=== PATIENT | female | born 1985 | race Caucasian/White ===

== ENCOUNTER 2016-05-27 13:58 | Emergency (ER) | payer MEDICAID ==
--- NOTE | 2016-05-27 15:10 | ER Document Report ---
ED Medical Screen (RME) - General Stated Complaint: STOMACH PAIN Mode of Arrival: Ambulatory Information source: Patient Notes: 30-year-old well-appearing female presents to the emergency department complaining of generalized abdominal pain, ear pain, and sinus congestion. Reports associated loose stools. Denies fever. I have greeted and performed a rapid initial assessment of this patient. A comprehensive ED assessment and evaluation of the patient, analysis of test results and completion of the medical decision making process will be conducted by additional ED providers. TRAVEL OUTSIDE OF THE [place] IN LAST 30 DAYS: No - Related Data Allergies/Adverse Reactions: tramadol [Tramadol] Allergy (Severe, Verified 05/27/16 14:59) ASTHMA SX,HIVES,VOMITING amoxicillin [Amoxicillin] Allergy (Verified 05/27/16 14:59) clindamycin HCl [From Cleocin] Allergy (Verified 05/27/16 14:59) clindamycin palmitate HCl [From Cleocin] Allergy (Verified 05/27/16 14:59) clindamycin phosphate [From Cleocin] Allergy (Verified 05/27/16 14:59) ketorolac tromethamine [From Toradol] Allergy (Verified 05/27/16 14:59) Sulfa (Sulfonamide Antibiotics) Allergy (Verified 05/27/16 14:59) sulfamethoxazole [From Bactrim] Allergy (Verified 05/27/16 14:59) trimethoprim [From Bactrim] Allergy (Verified 05/27/16 14:59) latex [Latex] Adverse Reaction (Verified 05/27/16 14:59) Past Medical History - Social History Frequency of alcohol use: None Drug Abuse: None - Past Medical History Cardiac Medical History: Reports: Hx Hypertension - WITH PREG Denies: Hx Heart Attack Pulmonary Medical History: Reports: Hx Asthma - NO CURRENT MEDS/LAST EPISODE WAS 03/19 Neurological Medical History: Denies: Hx Cerebrovascular Accident, Hx Seizures Renal/ Medical History: Denies: Hx Peritoneal Dialysis GI Medical History: Reports: Hx Gastroesophageal Reflux Disease. Denies: Hx Hepatitis, Hx Hiatal Hernia, Hx Ulcer Musculoskeltal Medical History: Reports Hx Arthritis, Reports Hx Musculoskeletal Deformity, Reports Hx Musculoskeletal Trauma Psychiatric Medical History: Reports: Hx Depression Traumatic Medical History: Reports: Hx Fractures Infectious Medical History: Denies: Hx Hepatitis Past Surgical History: Reports: Hx Adenoidectomy, Hx Section - x3, Hx Hysterectomy, Hx Myringotomy - Permanent, Hx Nose Surgery - Septoplasty, Hx Oral Surgery - cleft lip and palate, Hx Orthopedic Surgery - left knee, Microdiscectomy, Lumbar laminectomy, DJD, Hx Tonsillectomy, Hx Tubal Ligation. Denies: Hx Mastectomy, Hx Open Heart Surgery, Hx Pacemaker - Immunizations Immunizations up to date: Yes Hx Diphtheria, Pertussis, Tetanus Vaccination: Yes - 2009 Physical Exam - Vital signs Vitals: Temp Pulse Resp BP Pulse Ox 98.1 F 82 18 130/71 H 100 05/27/16 14:55 05/27/16 14:55 05/27/16 14:55 05/27/16 14:55 05/27/16 14:55 - General General appearance: Appears well, Alert In distress: None Course - Vital Signs Vital signs: Temp Pulse Resp BP Pulse Ox 98.1 F 82 18 130/71 H 100 05/27/16 14:55 05/27/16 14:55 05/27/16 14:55 05/27/16 14:55 05/27/16 14:55
[2016-05-27 15:47] LABS: ABSOLUTE EOSINOPHILS # (AUTO) 0.2 10^3/uL (0.0-0.6); ABSOLUTE LYMPHOCYTES (AUTO) 1.4 10^3/uL (0.5-4.7); ABSOLUTE MONOCYTES (AUTO) 0.5 10^3/uL (0.1-1.4); ABSOLUTE NEUT (AUTO) 8.7 10^3/uL (1.7-8.2); BASOPHILS % (AUTO) 0.2 % (0-2); EOSINOPHILS % (AUTO) 1.5 % (0-6); HEMATOCRIT 42.1 % (36.0-47.0); HGB HCT DIFFERENCE -0.1; LYMPHOCYTES % (AUTO) 12.7 % (13-45); MEAN CORPUSCULAR HEMOGLOBIN 29.6 pg (27.0-33.4); MEAN CORPUSCULAR HGB CONC 33.3 g/dL (32.0-36.0); MEAN CORPUSCULAR VOLUME 89 fl (80-97); MONOCYTES % (AUTO) 4.5 % (3-13); RED BLOOD COUNT 4.74 10^6/uL (3.72-5.28); RED CELL DISTRIBUTION WIDTH 12.7 % (11.5-14.0); SEGMENTED NEUTROPHILS % (AUTO) 81.1 % (42-78); WHITE BLOOD COUNT 10.7 10^3/uL (4.0-10.5)
[2016-05-27 15:53] LABS: APPEARANCE,URINE SLIGHTLY-CLOUDY; BILIRUBIN,URINE NEGATIVE (NEGATIVE); GLUCOSE, URINE NEGATIVE (NEGATIVE); KETONES,URINE NEGATIVE (NEGATIVE); LEUKOCYTE ESTERASE,URINE NEGATIVE (NEGATIVE); NITRITE,URINE NEGATIVE (NEGATIVE); PROTEIN,URINE NEGATIVE (NEGATIVE); URINE SPECIFIC GRAVITY 1.012; UROBILINOGEN,URINE NEGATIVE mg/dL (<2.0)
[2016-05-27 16:07] LABS: ALANINE AMINOTRANSFERASE 26 U/L (9-52); ALBUMIN 4.1 g/dL (3.5-5.0); ALKALINE PHOSPHATASE 59 U/L (38-126); ANION GAP 13 (5-19); ASPARTATE AMINO TRANSFERASE 29 U/L (14-36); BILIRUBIN,TOTAL 0.5 mg/dL (0.2-1.3); BLOOD UREA NITROGEN 8 mg/dL (7-20); CALCIUM 9.9 mg/dL (8.4-10.2); CARBON DIOXIDE 29 mmol/L (22-30); CHLORIDE 102 mmol/L (98-107); CREATININE RESULT 0.62 mg/dL (0.52-1.25); GLUCOSE 83 mg/dL (75-110); LIPASE 69.9 U/L (23-300); POTASSIUM 3.8 mmol/L (3.6-5.0); SODIUM 143.7 mmol/L (137-145); TOTAL PROTEIN 7.3 g/dL (6.3-8.2)
[2016-05-27] MEDS ORDERED: HYDROCODONE/ACETAMINOPHEN 5-325 MG 6 TAB/DSPK PO PRN ×2 (17:19→17:42)
[2016-05-27] MEDS ORDERED: PROMETHAZINE HCL 25 MG TABLET PO ONE (17:19)
--- NOTE | 2016-05-27 17:26 | ER Document Report ---
ED GI/ - General Chief Complaint: Abdominal Pain Stated Complaint: STOMACH PAIN Time seen by provider: 17:20 Mode of Arrival: Ambulatory Information source: Patient Notes: 30-year-old female presents to ED for abdominal pain and diarrhea for over a week. Patient states she was recently diagnosed with ulcer and change from ranitidine and Prilosec to Protonix and has a follow-up appointment with Dr. Osman. TRAVEL OUTSIDE OF THE [place] IN LAST 30 DAYS: No - HPI Patient complains to provider of: Abdominal pain, Diarrhea - Multiple stools yesterday only 3 stools today liquid, Other - Right ear pain Onset: Last week Timing/Duration: Gradual, Intermittent Quality of pain: Sharp - To up her abdominal pain and right ear Severity at maximum: Moderate Severity in ED: Moderate Pain Level: 3 Location: Other - Upper abdominal pain and right ear pain Vaginal bleeding (Compared to normal period): None Menstrual period history: Post-menopausal LMP: hysterectomy Associated symptoms: Diarrhea, Nausea, Other - Right ear pain Exacerbated by: Movement, Other - Right ear increases in pain with movement of head Relieved by: Denies - Related Data Allergies/Adverse Reactions: tramadol [Tramadol] Allergy (Severe, Verified 05/27/16 14:59) ASTHMA SX,HIVES,VOMITING amoxicillin [Amoxicillin] Allergy (Verified 05/27/16 14:59) clindamycin HCl [From Cleocin] Allergy (Verified 05/27/16 14:59) clindamycin palmitate HCl [From Cleocin] Allergy (Verified 05/27/16 14:59) clindamycin phosphate [From Cleocin] Allergy (Verified 05/27/16 14:59) ketorolac tromethamine [From Toradol] Allergy (Verified 05/27/16 14:59) Sulfa (Sulfonamide Antibiotics) Allergy (Verified 05/27/16 14:59) sulfamethoxazole [From Bactrim] Allergy (Verified 05/27/16 14:59) trimethoprim [From Bactrim] Allergy (Verified 05/27/16 14:59) latex [Latex] Adverse Reaction (Verified 05/27/16 14:59) Past Medical History - General Information source: Patient - Social History Smoking Status: Unknown if Ever Smoked Frequency of alcohol use: None Drug Abuse: None Family History: CVA, Malignancy Patient has suicidal ideation: No Patient has homicidal ideation: No - Medical History Medical History: Other - Iron deficiency anemia - Past Medical History Cardiac Medical History: Reports: Hx Hypertension - WITH PREG Pulmonary Medical History: Reports: Hx Asthma - NO CURRENT MEDS/LAST EPISODE WAS 03/19 EENT Medical History: Reports: None Neurological Medical History: Reports: None Endocrine Medical History: Reports: Hx Hypothyroidism Renal/ Medical History: Reports: None Malignancy Medical History: Reports: None GI Medical History: Reports: Hx Gastroesophageal Reflux Disease, Hx Ulcer, Hx Colonoscopy, Hx Endoscopy Musculoskeltal Medical History: Reports Hx Arthritis, Reports Hx Musculoskeletal Deformity - Degenerative disc disease, Reports Hx Musculoskeletal Trauma - Left arm fracture Skin Medical History: Reports None Psychiatric Medical History: Reports: Hx Depression Traumatic Medical History: Reports: Hx Fractures - Left arm Infectious Medical History: Reports: None. Denies: Hx Hepatitis Past Surgical History: Reports: Hx Adenoidectomy, Hx Section - x3, Hx Hysterectomy, Hx Myringotomy - Permanent, Hx Nose Surgery - Septoplasty, Hx Oral Surgery - cleft lip and palate, Hx Orthopedic Surgery - left knee, Microdiscectomy, Lumbar laminectomy, DJD, Hx Tonsillectomy, Hx Tubal Ligation - Immunizations Immunizations up to date: Yes Hx Diphtheria, Pertussis, Tetanus Vaccination: Yes - 2009 Review of Systems - Review of Systems Constitutional: No symptoms reported EENT: No symptoms reported Cardiovascular: No symptoms reported Respiratory: No symptoms reported Gastrointestinal: Abdominal pain Genitourinary: No symptoms reported Female Genitourinary: No symptoms reported Musculoskeletal: No symptoms reported Skin: No symptoms reported Hematologic/Lymphatic: No symptoms reported Neurological/Psychological: No symptoms reported -: Yes All other systems reviewed and negative Physical Exam - Vital signs Vitals: Temp Pulse Resp BP Pulse Ox 98.1 F 82 18 130/71 H 100 05/27/16 14:55 05/27/16 14:55 05/27/16 14:55 05/27/16 14:55 05/27/16 14:55 Interpretation: Normal - General General appearance: Appears well, Alert - HEENT Head: Normocephalic, Atraumatic Eyes: Normal Pupils: PERRL - Respiratory Respiratory status: No respiratory distress Chest status: Nontender Breath sounds: Normal Chest palpation: Normal - Cardiovascular Rhythm: Regular Heart sounds: Normal auscultation Murmur: No - Abdominal Inspection: Normal Distension: No distension Bowel sounds: Normal Tenderness: Tender - Upper abdominal tenderness recent diagnosis of ulcers Organomegaly: No organomegaly - Back Back: Normal, Nontender - Extremities General upper extremity: Normal inspection, Nontender, Normal color, Normal ROM , Normal temperature General lower extremity: Normal inspection, Nontender, Normal color, Normal ROM , Normal temperature, Normal weight bearing. No: Malathi's sign - Neurological Neuro grossly intact: Yes Cognition: Normal Orientation: AAOx4 Wins[place] Coma Scale Eye Opening: Spontaneous [place] Coma Scale Verbal: Oriented Wins[place] Coma Scale Motor: Obeys Commands Winslow Coma Scale Total: 15 Speech: Normal Motor strength normal: LUE, RUE, LLE, RLE Sensory: Normal - Psychological Associated symptoms: Normal affect, Normal mood - Skin Skin Temperature: Warm Skin Moisture: Dry Skin Color: Normal Course - Re-evaluation Re-evalutation: 05/27/16 17:[address] Auguste for assessment of abdominal pain he recommended adding Carafate to my program. Patient will be sent home with a new hydrocodone dispense Nathen prescription for Phenergan and prescription for Carafate. She will be given a Carafate and Phenergan in the emergency room. - Vital Signs Vital signs: Temp Pulse Resp BP Pulse Ox 98.1 F 88 16 128/74 H 99 05/27/16 18:00 05/27/16 18:00 05/27/16 18:00 05/27/16 18:00 05/27/16 18:00 - Laboratory Result Diagrams: 05/27/16 15:24 05/27/16 15:24 Laboratory results interpreted by me: 05/27/16 05/27/16 15:24 15:24 WBC 10.7 H Seg Neutrophils % 81.1 H Lymphocytes % 12.7 L Absolute Neutrophils 8.7 H Urine Blood SMALL H Discharge - Discharge Clinical Impression: Upper abdominal pain, Right ear pain Diarrhea Qualifiers: Diarrhea type: unspecified type Qualified Code(s): R19.7 - Diarrhea, unspecified Condition: Good Disposition: HOME, SELF-CARE Instructions: Evaluation of Upper Abdominal Pain ([facility]) Additional Instructions: ABDOMINAL PAIN: There are many causes of abdominal pain. Pain can mean a serious problem requiring surgery (such as appendicitis). It can also be an innocent problem that goes away on its own (such as a viral infection). Often, time must pass to determine the cause of pain. The physician does not feel that hospitalization is necessary, at present. Things may change within the next 24 hours. Call the doctor or come back for re- examination if any problems occur, such as: (1) Pain that becomes more severe, steady, or becomes concentrated in one specific area. Also, pain that is more severe with movement or coughing. (2) Vomiting that persists or becomes more frequent. (3) Blood in the vomitus, urine, or bowel movements. Blood in the stool may have a tarry or black appearance. (4) Shaking chills or fever greater than 100 degrees F. (5) The abdomen becomes more distended or swollen. (6) Bowel movements cease. (7) Failure to improve as expected. UPPER RESPIRATORY ILLNESS: You have a viral infection of the respiratory passages -- a "cold." This common infection causes nasal congestion, drainage, and often sore throat and cough. It is highly contagious. The disease usually lasts about 10 to 14 days. There is no "cure" for the viral infection -- it must run its course. If there is a complication, such as bacterial infection in the nose, sinuses, middle ear, or bronchial tubes, antibiotics may be required. The antibiotics won't affect the virus. Drink plenty of fluids. A humidifier may help. An expectorant medication or decongestant may make you more comfortable. Use acetaminophen or ibuprofen for fever or aches. See the doctor if fever persists over two days, if there is any significant worsening of your symptoms, or if you simply fail to improve as expected. USE OF ACETAMINOPHEN (Tylenol): Acetaminophen may be taken for pain relief or fever control. It's much safer than aspirin, offering a wider range of "safe" dosages. It is safe during . Some brand names are Tylenol, Panadol, Datril, Anacin 3, Tempra, and Liquiprin. Acetaminophen can be repeated every four hours. The following are maximum recommended dosages: >89 pounds or adults 650 mg to 900 mg Acetaminophen can be repeated every four hours. Maximum dose not to exceed 4000 mg a day. ANTINAUSEA MEDICATION: You have been given a medication to suppress nausea and vomiting. This type of medication can be given as a shot, pill, or suppository. It will usually last for many hours. Pills and shots usually last six to eight hours, suppositories last about 12 hours. For the typical illness, only one or two doses of the medication may be necessary. Mild lightheadedness may occur. This type of medicine can cause drowsiness. Do not drive or operate dangerous machinery while under its influence. Do not mix with alcohol. See your doctor at once if you have muscle spasms or tightness, or uncontrollable motions (particularly of the neck, mouth, or jaw). Persistent vomiting or severe lightheadedness should also be evaluated by the physician. ORAL NARCOTIC MEDICATION: You have been given a prescription for pain control. This medication is a narcotic. It's best taken with food, as nausea can result if taken on an empty stomach. Don't operate machinery or drive within six hours of taking this medication. Do not combine this medicine with alcohol, or with any medication which can cause sedation (such as cold tablets or sleeping pills) unless you get permission from the physician. Narcotics tend to cause constipation. If possible, drink plenty of fluids and eat a diet high in fiber and fruits. Please be aware that prescription narcotics also have the potential for abuse. People become addicted to these medications because of the general sense of wellbeing that they induce. This feeling along with a significant reduction in tension, anxiety, and aggression provides a stimulating seductive quality to these drugs. Once your pain is under control, we encourage you to discard your unused narcotics. FOLLOW-UP CARE: If you have been referred to a physician for follow-up care, call the physician s office for an appointment as you were instructed or within the next two days. If you experience worsening or a significant change in your symptoms, notify the physician immediately or return to the Emergency Department at any time for re-evaluation. Prescriptions: Promethazine HCl [Phenergan 25 mg Tablet] 25 mg PO Q6HP PRN #10 tablet PRN Reason: Sucralfate [Carafate 1 gm Tablet] 1 gm PO ACHS #120 tablet Referrals: JEREMY OSMAN MD [ACTIVE STAFF] - Follow up as needed
[2016-05-27] MEDS ORDERED: SUCRALFATE 1 GM TABLET PO ONE (17:43)
--- NOTE | 2016-05-27 17:57 | ER Document Report ---
Doctor's Note Notes: 05/27/16 17:53 I personally interviewed and briefly examined this patient. She has a known history of peptic ulcer disease, and her subjective description is consistent with pain of an upper GI source. Upon examination she has a soft abdomen with good bowel sounds and minimal epigastric tenderness. She states that her pain seems to be improved when she takes Pepto-Bismol. I have recommended that she try taking Carafate to see if it would provide additional symptomatic relief. 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
[2016-05-27 19:09] VITALS: BP 128/74
== END 2016-05-27 18:00 | disposition home or self-care (01) ==
LOC: ER 13:58
DX: K27.9 Peptic ulcer, site unspecified, unspecified as acute or chronic, without hemorrhage or perforation (principal); R19.7 Diarrhea, unspecified; R10.10 Upper abdominal pain, unspecified; H92.01 Otalgia, right ear; R11.0 Nausea; J45.909 Unspecified asthma, uncomplicated; Z88.5 Allergy status to narcotic agent; Z88.0 Allergy status to penicillin; Z88.1 Allergy status to other antibiotic agents; Z88.2 Allergy status to sulfonamides; Z88.8 Allergy status to other drugs, medicaments and biological substances; Z96.22 Myringotomy tube(s) status; Z90.710 Acquired absence of both cervix and uterus
CPT/HCPCS: 99284; 36415; 83690; 85025; 81025; 80053; 81001; J3490 ×2

== ENCOUNTER 2016-06-23 14:25 | Emergency (ER) | payer MEDICAID ==
[2016-06-23] MEDS ORDERED: ONDANSETRON 4 MG TAB.RAPDIS PO ONE (14:33)
[2016-06-23] MEDS ORDERED: OXYCODONE-ACETAMINOPHEN 5-325 MG TABLET PO ONE (14:33)
--- NOTE | 2016-06-23 14:36 | ER Document Report ---
ED Medical Screen (RME) - General Stated Complaint: RIGHT WRIST PAIN Mode of Arrival: Wheelchair Information source: Patient Notes: Patient ELOY, felt pops in her right wrist. EMS reports that there is some visible deformity I have greeted and performed a rapid initial assessment of this patient. A comprehensive ED assessment and evaluation of the patient, analysis of test results and completion of the medical decision making process will be conducted by additional ED providers. TRAVEL OUTSIDE OF THE [place] IN LAST 30 DAYS: No - Related Data Allergies/Adverse Reactions: tramadol [Tramadol] Allergy (Severe, Verified 05/27/16 14:59) ASTHMA SX,HIVES,VOMITING amoxicillin [Amoxicillin] Allergy (Verified 05/27/16 14:59) clindamycin HCl [From Cleocin] Allergy (Verified 05/27/16 14:59) clindamycin palmitate HCl [From Cleocin] Allergy (Verified 05/27/16 14:59) clindamycin phosphate [From Cleocin] Allergy (Verified 05/27/16 14:59) ketorolac tromethamine [From Toradol] Allergy (Verified 05/27/16 14:59) Sulfa (Sulfonamide Antibiotics) Allergy (Verified 05/27/16 14:59) sulfamethoxazole [From Bactrim] Allergy (Verified 05/27/16 14:59) trimethoprim [From Bactrim] Allergy (Verified 05/27/16 14:59) latex [Latex] Adverse Reaction (Verified 05/27/16 14:59) Past Medical History - Past Medical History Cardiac Medical History: Reports: Hx Hypertension - WITH PREG Denies: Hx Heart Attack Pulmonary Medical History: Reports: Hx Asthma - NO CURRENT MEDS/LAST EPISODE WAS 03/19 Neurological Medical History: Denies: Hx Cerebrovascular Accident, Hx Seizures Endocrine Medical History: Reports: Hx Hypothyroidism Renal/ Medical History: Denies: Hx Peritoneal Dialysis GI Medical History: Reports: Hx Gastroesophageal Reflux Disease, Hx Ulcer, Hx Colonoscopy, Hx Endoscopy. 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 Denies: Hx Mastectomy, Hx Open Heart Surgery, Hx Pacemaker - Immunizations Immunizations up to date: Yes Hx Diphtheria, Pertussis, Tetanus Vaccination: Yes - 2009 Physical Exam - Extremities General upper extremity: Tender - Right wrist tenderness with deformity
[2016-06-23] MEDS ORDERED: HYDROMORPHONE HCL INJ/PF 2 MG/ML AMPULE IM ONE (15:28)
--- NOTE | 2016-06-23 15:43 | ER Document Report ---
[id number] PAIN Mode of Arrival: Wheelchair Information source: Patient Notes: 30-year-old female presents after mechanical fall with right wrist pain. Deformity noted. TRAVEL OUTSIDE OF THE [place] IN LAST 30 DAYS: No - HPI Onset: Just prior to arrival Onset/Duration: Sudden Quality of pain: Sharp Severity: Moderate Pain Level: 3 Associated symptoms: Body/muscle aches Exacerbated by: Movement Relieved by: Denies Similar symptoms previously: No Recently seen / treated by doctor: No - Related Data Allergies/Adverse Reactions: tramadol [Tramadol] Allergy (Severe, Verified 05/27/16 14:59) ASTHMA SX,HIVES,VOMITING amoxicillin [Amoxicillin] Allergy (Verified 05/27/16 14:59) clindamycin HCl [From Cleocin] Allergy (Verified 05/27/16 14:59) clindamycin palmitate HCl [From Cleocin] Allergy (Verified 05/27/16 14:59) clindamycin phosphate [From Cleocin] Allergy (Verified 05/27/16 14:59) ketorolac tromethamine [From Toradol] Allergy (Verified 05/27/16 14:59) Sulfa (Sulfonamide Antibiotics) Allergy (Verified 05/27/16 14:59) sulfamethoxazole [From Bactrim] Allergy (Verified 05/27/16 14:59) trimethoprim [From Bactrim] Allergy (Verified 05/27/16 14:59) latex [Latex] Adverse Reaction (Verified 05/27/16 14:59) Past Medical History - General Information source: Patient - Social History Smoking Status: Current Every Day Smoker Cigarette use (# per day): No Chew tobacco use (# tins/day): No Smoking Education Provided: No Frequency of alcohol use: None Drug Abuse: None Family History: CVA, Malignancy Patient has suicidal ideation: No Patient has homicidal ideation: No - Past Medical History Cardiac Medical History: Reports: Hx Hypertension - WITH PREG Denies: Hx Heart Attack Pulmonary Medical History: Reports: Hx Asthma - NO CURRENT MEDS/LAST EPISODE WAS 03/19 Neurological Medical History: Denies: Hx Cerebrovascular Accident, Hx Seizures Endocrine Medical History: Reports: Hx Hypothyroidism Renal/ Medical History: Denies: Hx Peritoneal Dialysis GI Medical History: Reports: Hx Gastroesophageal Reflux Disease, Hx Ulcer, Hx Colonoscopy, Hx Endoscopy. 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 Denies: Hx Mastectomy, Hx Open Heart Surgery, Hx Pacemaker - Immunizations Immunizations up to date: Yes Hx Diphtheria, Pertussis, Tetanus Vaccination: Yes - 2009 Review of Systems - Review of Systems Notes: REVIEW OF SYSTEMS: CONSTITUTIONAL : Denies fever, chills, or sweats. Denies recent illness. EENT: Denies eye, ear, throat, or mouth pain or symptoms. Denies nasal or sinus congestion or discharge. Denies throat, tongue, or mouth swelling or difficulty swallowing. CARDIOVASCULAR: Denies chest pain. Denies palpitations or racing or irregular heart beat. Denies ankle edema. RESPIRATORY: Denies cough, cold, or chest congestion. Denies shortness of breath, difficulty breathing, or wheezing. GASTROINTESTINAL: Denies abdominal pain or distention. Denies nausea, vomiting , or diarrhea. Denies blood in vomitus, stools, or per rectum. Denies black, tarry stools. Denies constipation. GENITOURINARY: Denies difficulty urinating, painful urination, burning, frequency, blood in urine, or discharge. FEMALE GENITOURINARY: Denies vaginal bleeding, heavy or abnormal periods, irregular periods. Denies vaginal discharge or odor. MUSCULOSKELETAL: Admits to right wrist pain SKIN: Denies rash, lesions or sores. HEMATOLOGIC : Denies easy bruising or bleeding. LYMPHATIC: Denies swollen, enlarged glands. NEUROLOGICAL: Denies confusion or altered mental status. Denies passing out or loss of consciousness. Denies dizziness or lightheadedness. Denies headache. Denies weakness or paralysis or loss of use of either side. Denies problems with gait or speech. Denies sensory loss, numbness, or tingling. Denies seizures. PSYCHIATRIC: Denies anxiety or stress. Denies depression, suicidal ideation, or homicidal ideation. ALL OTHER SYSTEMS REVIEWED AND NEGATIVE. Dictation was performed using [employer] voice recognition software PHYSICAL EXAMINATION: GENERAL: Well-appearing, well-nourished and in no acute distress. HEAD: Atraumatic, normocephalic. EYES: Pupils equal round extraocular movements intact, conjunctiva are normal. ENT: Nares patent NECK: Normal range of motion LUNGS: No respiratory distress Musculoskeletal: Deformity of the right distal radial head, a splint in place pulses intact patient able to move digits NEUROLOGICAL: Normal speech, normal gait. PSYCH: Normal mood, normal affect. SKIN: Warm, Dry, normal turgor, no rashes or lesions noted. Physical Exam - Vital signs Vitals: Temp Pulse Resp BP Pulse Ox 97.8 F 116 H 19 152/101 H 100 06/23/16 14:32 06/23/16 14:32 06/23/16 14:32 06/23/16 14:32 06/23/16 14:32 Course - Re-evaluation Re-evalutation: 06/23/16 16:04 X-ray consistent with fracture, patient placed in splint given pain control and follow-up with orthopedics. Pulses are intact After performing a Medical Screening Examination, I estimate there is LOW risk for INTRACRANIAL HEMORRHAGE, UNSTABLE SPINE FRACTURE, CENTRAL CORD SYNDROME, CAUDA EQUINA, THORACIC AORTIC DISSECTION, PNEUMOTHORAX, PERFORATED BOWEL, RUPTURED ABDOMINAL AORTIC ANEURYSM, ACUTE TENDON RUPTURE, COMPARTMENT SYNDROME, or OPEN FRACTURE, thus I consider the discharge disposition reasonable. Also, there is no evidence or peritonitis, sepsis, or toxicity. The patient and I have discussed the diagnosis and risks, and we agree with discharging home to follow-up with their primary doctor with the understanding that symptoms and presentations can change. We also discussed returning to the Emergency Department immediately if new or worsening symptoms occur. We have discussed the symptoms which are most concerning (e.g., bloody stool, fever, changing or worsening pain, vomiting) that necessitate immediate return. 06/24/16 00:22 - Vital Signs Vital signs: Temp Pulse Resp BP Pulse Ox 97.7 F 96 20 125/75 95 06/23/16 16:22 06/23/16 16:22 06/23/16 16:22 06/23/16 16:22 06/23/16 16:22 - Diagnostic Test Radiology reviewed: Image reviewed, Reports reviewed - Imaging report given to patient Procedures - Immobilization Right Wrist Time completed: 15:40 Pre-Proc Neuro Vasc Exam: Normal Immobilizer type: Sugar tong Performed by: PCT Post-Proc Neuro Vasc Exam: Normal Alignment checked and good: Yes Discharge - Discharge Clinical Impression: Distal radial fracture Qualifiers: Encounter type: initial encounter Fracture type: closed Fracture morphology: other fracture Laterality: right Qualified Code(s): S52.591A - Other fractures of lower end of right radius, initial encounter for closed fracture Wrist pain, acute Qualifiers: Laterality: right Qualified Code(s): M25.531 - Pain in right wrist Fall Qualifiers: Encounter type: initial encounter Qualified Code(s): W19.XXXA - Unspecified fall, initial encounter Condition: Stable Disposition: HOME, SELF-CARE Instructions: Radial Head Fracture ([facility]) Prescriptions: Oxycodone HCl/Acetaminophen [Percocet 5-325 mg Tablet] 1 - 2 tab PO Q4H PRN #25 tablet PRN Reason: Referrals: RADHA BOUDREAUX MD [ACTIVE STAFF] - Follow up in 3-5 days
[2016-06-23 16:22] VITALS: BP 125/75
== END 2016-06-23 16:23 | disposition home or self-care (01) ==
LOC: ER 14:25
PROC: 2W3CX1Z Immobilization of Right Lower Arm using Splint (ICD-10-PCS; principal; 2016-06-23)
DX: S52.591A Other fractures of lower end of right radius, initial encounter for closed fracture (principal); M25.531 Pain in right wrist; F17.200 Nicotine dependence, unspecified, uncomplicated; W19.XXXA Unspecified fall, initial encounter; I10 Essential (primary) hypertension; J45.909 Unspecified asthma, uncomplicated; E03.9 Hypothyroidism, unspecified; K21.9 Gastro-esophageal reflux disease without esophagitis; Z88.0 Allergy status to penicillin; Z88.3 Allergy status to other anti-infective agents; Z88.2 Allergy status to sulfonamides; Z91.040 Latex allergy status; Z90.710 Acquired absence of both cervix and uterus
CPT/HCPCS: 99283; 96372; 73110; 29125; S0119; J1170

== ENCOUNTER 2016-06-28 15:41 | Day surgery (SDC) | payer MEDICAID ==
[2016-06-27 10:39] LABS: HEMATOCRIT 43.5 % (36.0-47.0); HEMOGLOBIN 14.7 g/dL (12.0-15.5); HGB HCT DIFFERENCE 0.6; MEAN CORPUSCULAR HEMOGLOBIN 29.5 pg (27.0-33.4); MEAN CORPUSCULAR HGB CONC 33.9 g/dL (32.0-36.0); MEAN CORPUSCULAR VOLUME 87 fl (80-97); RED CELL DISTRIBUTION WIDTH 12.5 % (11.5-14.0); WHITE BLOOD COUNT 10.4 10^3/uL (4.0-10.5)
[2016-06-27 10:41] LABS: APPEARANCE,URINE SLIGHTLY-CLOUDY; BILIRUBIN,URINE NEGATIVE (NEGATIVE); GLUCOSE, URINE NEGATIVE (NEGATIVE); KETONES,URINE NEGATIVE (NEGATIVE); LEUKOCYTE ESTERASE,URINE NEGATIVE (NEGATIVE); NITRITE,URINE NEGATIVE (NEGATIVE); PROTEIN,URINE 30 mg/dL (NEGATIVE); URINE SPECIFIC GRAVITY 1.033; UROBILINOGEN,URINE NEGATIVE mg/dL (<2.0)
[2016-06-27 10:43] LABS: ANION GAP 11 (5-19); BLOOD UREA NITROGEN 16 mg/dL (7-20); CALCIUM 10.1 mg/dL (8.4-10.2); CARBON DIOXIDE 28 mmol/L (22-30); CHLORIDE 101 mmol/L (98-107); CREATININE RESULT 0.56 mg/dL (0.52-1.25); GLUCOSE 91 mg/dL (75-110); POTASSIUM 4.4 mmol/L (3.6-5.0); SODIUM 140.1 mmol/L (137-145)
[~2016-06-28 15:41] MED LIST: CEFAZOLIN SODIUM 1 GM in DEXTROSE 5%-WATER 50 ML IV PRN; LACTATED RINGERS 1000 ML IV PRN; LIDOCAINE 0.5% INJ-PF (5 MG/ML) 50 ML SDV SUBCUT PRN
[2016-06-28] MEDS ORDERED: DIAZEPAM 5 MG TABLET ONE (16:27)
[2016-06-28] MEDS ORDERED: ACETAMINOPHEN 0 ML IV ONE (16:58)
[2016-06-28] MEDS ORDERED: DIAZEPAM 5 MG TABLET PO ONE (17:15)
[2016-06-28] MEDS ORDERED: FAMOTIDINE 20 MG TABLET PO ONE (17:15)
[2016-06-28] MEDS ORDERED: HYDROCODONE/ACETAMINOPHEN 5-325 MG TABLET ONE (17:51)
[2016-06-28] MEDS ORDERED: FENTANYL CITRATE INJ/PF 100 MCG/2 ML AMPUL ONE (18:22)
[2016-06-28] MEDS ORDERED: PROPOFOL INJ 200 MG/20 ML VIAL IV ONE (18:22)
[2016-06-28] MEDS ORDERED: MIDAZOLAM 2 MG/2 ML INJ ONE (18:22)
[2016-06-28] MEDS ORDERED: MEPERIDINE HCL/PF INJ 25 MG/1 ML DISP.SYRIN IV PRN (18:58)
[2016-06-28] MEDS ORDERED: DIPHENHYDRAMINE HCL 50 MG/ML VIAL IV PRN (18:58)
[2016-06-28] MEDS ORDERED: PROMETHAZINE HCL INJ 25 MG/1 ML VIAL IV PRN ×2 (18:58)
[2016-06-28] MEDS ORDERED: FENTANYL CITRATE INJ/PF 100 MCG/2 ML AMPUL IV PRN ×3 (18:58)
--- NOTE | 2016-06-28 19:08 | PDOC DISCHARGE SUMMARY ---
Discharge Summary (SDC) - Discharge Final Diagnosis: Displaced right distal radius fracture status post closed reduction with pertains pinning and application of a short arm cast. Date of Surgery: 06/28/16 Discharge Date: 06/28/16 Condition: Good Treatment or Instructions: Keep the cast dry clean and intact Nonweightbearing right upper extremity Follow-up in 2 weeks. Prescriptions: Oxycodone HCl/Acetaminophen [Percocet 5-325 mg Tablet] 1 - 2 tab PO ASDIR PRN # 60 tablet PRN Reason: Referrals: OSORIO MICHAEL PA-C [Primary Care Provider] - Discharge Diet: As Tolerated Respiratory Treatments at Home: Deep Breathing/Coughing Discharge Activity: No Driving, No Lifting/Push/Pulling Home Care Assistance: None Needed Report the Following to Your Physician Immediately: Shortness of Breath, Vomiting, Increase in Pain, Fever over 101 Degrees, Unusual Bleeding, Redness, Swelling, Warmth, Drainage-Yellow, Drainage-Green, Drainage-Foul Smelling
--- NOTE | 2016-06-28 19:11 | Operative Report ---
Operative Report DATE OF SURGERY: 06/28/16 PREOPERATIVE DIAGNOSIS: Displaced right extra articular distal radius fracture POSTOPERATIVE DIAGNOSIS: Same OPERATION: Closed reduction and per cutaneous pinning of the right distal radius fracture with application of a short arm cast SURGEON: KIKI SHORT ANESTHESIA: GA TISSUE REMOVED OR ALTERED: None COMPLICATIONS: None ESTIMATED BLOOD LOSS: left and 5 mL INTRAOPERATIVE FINDINGS: As above PROCEDURE: Patient was given 1 g of Ancef in the preop holding area. At that point the patient was brought to the operating room and induced and intubated in supine position. Once the tube was secured the right upper extremity tourniquet was applied. Right upper show any was prepped and draped in a normal surgical fashion timeout was done identifying the right wrist as correct site. After prepping and draping in normal sterile surgical fashion we are using mini C-arm to x-ray AP and lateral views of the distal radius showing a displaced extra- articular distal radius fracture. I did a closed reduction with acceptable alignment AP and lateral and then proceeded to place 2 Emily wires in the radial styloid passing the fracture site into the small ulnar shaft. AP and lateral x-rays taken to show placement of the pin and retained reduction. Once I was satisfied with the pinning and then proceeded to bend the K wires outside the skin then cut the remaining length. I placed 2 Jergensen balls and secured over the tip of the 2 K wires. Xeroform and 4 x 4 dressing was applied around the K wires and then Sof-Rol was applied to the right upper extremity and a fiberglass short arm cast was applied successfully. Waited a few minutes to have it hardened. Applied surgical loupe to eliminate the adhesive component to a fiber glass. Patient was then successfully extubated and sent to PACU in stable condition. Tourniquet was never used or inflated.
[2016-06-28] MEDS: MEPERIDINE HCL/PF INJ 25 MG/1 ML DISP.SYRIN ONE ×2 (19:14→19:19)
[2016-06-28] MEDS: FENTANYL CITRATE INJ/PF 100 MCG/2 ML AMPUL ONE ×2 (19:15→19:20)
[2016-06-28 20:37] VITALS: BP 113/70
== END 2016-06-28 20:50 | disposition home or self-care (01) ==
LOC: OROUT 15:41 → 2N 20:00 → OROUT 20:50
PROVIDERS: ATTEND Orthopaedic Surgery
PROC: 0PSH34Z Reposition Right Radius with Internal Fixation Device, Percutaneous Approach (ICD-10-PCS; principal; 2016-06-28 16:45)
DX: S52.531D Colles' fracture of right radius, subsequent encounter for closed fracture with routine healing (principal); X58.XXXD Exposure to other specified factors, subsequent encounter; E03.9 Hypothyroidism, unspecified; D64.9 Anemia, unspecified; Z79.899 Other long term (current) drug therapy; Z88.0 Allergy status to penicillin; Z88.2 Allergy status to sulfonamides; Z88.5 Allergy status to narcotic agent
CPT/HCPCS: 36415; 85027; 80048; 81001; 73100; 25606; C1769; J2250; J0690; J3490 ×2; J3010; J2175; J2704; 01820; J0131

== ENCOUNTER 2016-07-06 19:44 | Emergency (ER) | payer MEDICAID ==
[2016-07-06 19:56] VITALS: BP 127/82
--- NOTE | 2016-07-06 20:12 | ER Document Report ---
ED Medical Screen (RME) - General Stated Complaint: POST SURGICAL COMPLICATION Notes: Patient states she had surgery on her right arm 2 weeks ago for a fracture with deformity. Bumped her thumb on recliner a couple of days ago and feels like pins or rods are coming through her skin is very painful. Patient states she is having decreased mobility in her thumb since incident. Fingertips feel cool to touch. I have greeted and performed a rapid initial assessment of this patient. A comprehensive ED assessment and evaluation of the patient, analysis of test results and completion of the medical decision making process will be conducted by additional ED providers. TRAVEL OUTSIDE OF THE [place] IN LAST 30 DAYS: No - Related Data Allergies/Adverse Reactions: tramadol [Tramadol] Allergy (Severe, Verified 05/27/16 14:59) ASTHMA SX,HIVES,VOMITING amoxicillin [Amoxicillin] Allergy (Verified 05/27/16 14:59) clindamycin HCl [From Cleocin] Allergy (Verified 05/27/16 14:59) clindamycin palmitate HCl [From Cleocin] Allergy (Verified 05/27/16 14:59) clindamycin phosphate [From Cleocin] Allergy (Verified 05/27/16 14:59) ketorolac tromethamine [From Toradol] Allergy (Verified 05/27/16 14:59) Latex, Natural Rubber Allergy (Verified 06/27/16 08:08) Hives Sulfa (Sulfonamide Antibiotics) Allergy (Verified 05/27/16 14:59) sulfamethoxazole [From Bactrim] Allergy (Verified 05/27/16 14:59) trimethoprim [From Bactrim] Allergy (Verified 05/27/16 14:59) latex [Latex] Adverse Reaction (Verified 05/27/16 14:59) Past Medical History - Past Medical History Cardiac Medical History: Reports: Hx Hypertension - WITH PREG Denies: Hx Coronary Artery Disease, Hx Heart Attack Pulmonary Medical History: Reports: Hx Asthma - NO CURRENT MEDS/LAST EPISODE WAS 03/19 Denies: Hx Bronchitis, Hx COPD, Hx Pneumonia Neurological Medical History: Denies: Hx Cerebrovascular Accident, Hx Seizures Endocrine Medical History: Reports: Hx Hypothyroidism Renal/ Medical History: Denies: Hx Peritoneal Dialysis GI Medical History: Reports: Hx Gastroesophageal Reflux Disease, Hx Ulcer, Hx Colonoscopy, Hx Endoscopy. 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 Denies: Hx Mastectomy, Hx Open Heart Surgery, Hx Pacemaker - Immunizations Immunizations up to date: Yes Hx Diphtheria, Pertussis, Tetanus Vaccination: Yes - 2009 Physical Exam - Vital signs Vitals: Temp Pulse Resp BP Pulse Ox 98.1 F 82 16 127/82 H 98 07/06/16 19:54 07/06/16 19:54 07/06/16 19:54 07/06/16 19:54 07/06/16 19:54 - Extremities Notes: right thumb tender to touch, other fingers feel cool to touch. N/V and sensation intact. Course - Vital Signs Vital signs: Temp Pulse Resp BP Pulse Ox 98.1 F 82 16 127/82 H 98 07/06/16 19:54 07/06/16 19:54 07/06/16 19:54 07/06/16 19:54 07/06/16 19:54
--- NOTE | 2016-07-06 20:47 | ER Document Report ---
ED Extremity Problem, Upper - General Chief Complaint: Arm Pain Stated Complaint: POST SURGICAL COMPLICATION Notes: The patient is a 31-year-old female who presents with right thumb pain after she bumped it against a hard surface 3 days ago. She had a distal radius fracture with pinning 2 weeks ago and the pain was improving with her [place]. She cannot take NSAIDs due to gastric ulcers. The pain is waking her up at night, but is better during the day. She denies numbness, tingling, fevers or open wounds. TRAVEL OUTSIDE OF THE [place] IN LAST 30 DAYS: No - Related Data Allergies/Adverse Reactions: tramadol [Tramadol] Allergy (Severe, Verified 07/06/16 20:14) ASTHMA SX,HIVES,VOMITING amoxicillin [Amoxicillin] Allergy (Verified 07/06/16 20:14) clindamycin HCl [From Cleocin] Allergy (Verified 07/06/16 20:14) clindamycin palmitate HCl [From Cleocin] Allergy (Verified 07/06/16 20:14) clindamycin phosphate [From Cleocin] Allergy (Verified 07/06/16 20:14) ketorolac tromethamine [From Toradol] Allergy (Verified 07/06/16 20:14) Latex, Natural Rubber Allergy (Verified 07/06/16 20:14) Hives Sulfa (Sulfonamide Antibiotics) Allergy (Verified 07/06/16 20:14) sulfamethoxazole [From Bactrim] Allergy (Verified 07/06/16 20:14) trimethoprim [From Bactrim] Allergy (Verified 07/06/16 20:14) latex [Latex] Adverse Reaction (Verified 07/06/16 20:14) Past Medical History - General Information source: Patient - Social History Smoking Status: Never Smoker Chew tobacco use (# tins/day): No Frequency of alcohol use: None Drug Abuse: None Family History: CVA, Malignancy - Past Medical History Cardiac Medical History: Reports: Hx Hypertension - WITH PREG Denies: Hx Coronary Artery Disease, Hx Heart Attack Pulmonary Medical History: Reports: Hx Asthma - NO CURRENT MEDS/LAST EPISODE WAS 03/19 Denies: Hx Bronchitis, Hx COPD, Hx Pneumonia Neurological Medical History: Denies: Hx Cerebrovascular Accident, Hx Seizures Endocrine Medical History: Reports: Hx Hypothyroidism Renal/ Medical History: Denies: Hx Peritoneal Dialysis GI Medical History: Reports: Hx Gastroesophageal Reflux Disease, Hx Ulcer, Hx Colonoscopy, Hx Endoscopy. 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 Denies: Hx Mastectomy, Hx Open Heart Surgery, Hx Pacemaker - Immunizations Immunizations up to date: Yes Hx Diphtheria, Pertussis, Tetanus Vaccination: Yes - 2009 Review of Systems - Review of Systems Notes: REVIEW OF SYSTEMS: CONSTITUTIONAL: -fevers, -chills EENT: -eye pain, -difficulty swallowing, -nasal congestion CARDIOVASCULAR:-chest pain, -syncope. RESPIRATORY: -cough, -SOB GASTROINTESTINAL: -abdominal pain, -nausea, -vomiting, -diarrhea GENITOURINARY: -dysuria, -hematuria MUSCULOSKELETAL: +right thumb pain, -back pain, -neck pain SKIN: -rash or skin lesions. HEMATOLOGIC: -easy bruising or bleeding. LYMPHATIC: -swollen, enlarged glands. NEUROLOGICAL: -altered mental status or loss of consciousness, -headache, - neurologic symptoms PSYCHIATRIC: -anxiety, -depression. ALL OTHER SYSTEMS REVIEWED AND NEGATIVE. Physical Exam - Vital signs Vitals: Temp Pulse Resp BP Pulse Ox 98.1 F 82 16 127/82 H 98 07/06/16 19:54 07/06/16 19:54 07/06/16 19:54 07/06/16 19:54 07/06/16 19:54 - Notes Notes: PHYSICAL EXAMINATION: GENERAL: Well-appearing, well-nourished and in no acute distress. HEAD: Atraumatic, normocephalic. EYES: Pupils equal round and reactive to light, extraocular movements intact, sclera anicteric, conjunctiva are normal. ENT: nares patent, oropharynx clear without exudates. Moist mucous membranes. NECK: Normal range of motion, supple without lymphadenopathy LUNGS: Breath sounds clear to auscultation bilaterally and equal. No wheezes rales or rhonchi. HEART: Regular rate and rhythm without murmurs ABDOMEN: Soft, nontender, normoactive bowel sounds. No guarding, no rebound. No masses appreciated. 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 No cyanosis. NEUROLOGICAL: Cranial nerves grossly intact. Normal speech, normal gait. Normal sensory, motor, and reflex exams. PSYCH: Normal mood, normal affect. SKIN: Warm, Dry, normal turgor, no rashes or lesions noted. Course - Re-evaluation Re-evalutation: Patient has no signs of infection, compartment syndrome or vascular injury. X- ray shows external pins in place. Told her to follow-up with her orthopedic surgeon in 2 days. Will provide her with 6 Percocets to help her sleep at night until she can see her Orthopedic Surgeon. - Vital Signs Vital signs: Temp Pulse Resp BP Pulse Ox 98.1 F 82 16 127/82 H 98 07/06/16 19:54 07/06/16 19:54 07/06/16 19:54 07/06/16 19:54 07/06/16 19:54 Discharge - Discharge Clinical Impression: Pain of right thumb Condition: Good Disposition: HOME, SELF-CARE Additional Instructions: SPRAIN: Your injury is a sprain. A sprain results from stretching or tearing of the ligaments, usually from a twisting injury. The ligaments will require time and protection in order to heal properly. Many sprains are quite disabling and should be taken seriously. The usual initial treatment of sprains is cold packs, elevation, and rest of the injured area. Your physician has assessed the seriousness of your ligament injury, and has outlined a treatment plan. Understand that this treatment may change, depending on how you progress. If a re-examination was recommended, it is important that you follow up as instructed. Call the doctor any time if there is severe pain, numbness, or loss of function in the injured area. ORAL NARCOTIC MEDICATION: You have been given a prescription for pain control. This medication is a narcotic. It's best taken with food, as nausea can result if taken on an empty stomach. Don't operate machinery or drive within six hours of taking this medication. Do not combine this medicine with alcohol, or with any medication which can cause sedation (such as cold tablets or sleeping pills) unless you get permission from the physician. Narcotics tend to cause constipation. If possible, drink plenty of fluids and eat a diet high in fiber and fruits. Please be aware that prescription narcotics also have the potential for abuse. People become addicted to these medications because of the general sense of wellbeing that they induce. This feeling along with a significant reduction in tension, anxiety, and aggression provides a stimulating seductive quality to these drugs. Once your pain is under control, we encourage you to discard your unused narcotics. FOLLOW-UP CARE: If you have been referred to a physician for follow-up care, call the physician s office for an appointment as you were instructed or within the next two days. If you experience worsening or a significant change in your symptoms, notify the physician immediately or return to the Emergency Department at any time for re-evaluation. Prescriptions: Oxycodone HCl/Acetaminophen [Percocet 5-325 mg Tablet] 1 - 2 tab PO Q4H PRN #6 tablet PRN Reason: Referrals: RADHA BOUDREAUX MD [ACTIVE STAFF] - Follow up as needed
== END 2016-07-06 20:59 | disposition home or self-care (01) ==
LOC: ER 19:44
DX: M79.644 Pain in right finger(s) (principal)
CPT/HCPCS: 99283

== ENCOUNTER 2016-08-11 13:13 | Emergency (ER) | payer MEDICAID ==
--- NOTE | 2016-08-11 15:33 | ER Document Report ---
ED General - General Chief Complaint: Toothache Stated Complaint: TOOTH PAIN Mode of Arrival: Ambulatory Information source: Patient Notes: Patient is a 31 year old female who presents with tooth pain to right lower jaw that is radiating up into her face and down into her jaw that has been present since she had dental work done several days ago. She states they had to pull a portion of her tooth due to an abscess and packed it but now she is concerned it has gotten affected. She states her jaw is also popping due to holding her mouth open for prolonged period of time during the dental work. She states she was not discharged on any antibiotics or pain medication. She has follow-up appointment with oral/maxillo facial surgeon on Saturday. She has tried tylenol without relief. Denies headache, fever, chills, change in vision, facial numbness, difficulty swallowing, difficulty breathing, nausea or vomiting. TRAVEL OUTSIDE OF THE [place] IN LAST 30 DAYS: No - Related Data Allergies/Adverse Reactions: tramadol [Tramadol] Allergy (Severe, Verified 08/11/16 13:26) ASTHMA SX,HIVES,VOMITING amoxicillin [Amoxicillin] Allergy (Verified 08/11/16 13:26) clindamycin HCl [From Cleocin] Allergy (Verified 08/11/16 13:26) clindamycin palmitate HCl [From Cleocin] Allergy (Verified 08/11/16 13:26) clindamycin phosphate [From Cleocin] Allergy (Verified 08/11/16 13:26) ketorolac tromethamine [From Toradol] Allergy (Verified 08/11/16 13:26) Latex, Natural Rubber Allergy (Verified 08/11/16 13:26) Hives Sulfa (Sulfonamide Antibiotics) Allergy (Verified 08/11/16 13:26) sulfamethoxazole [From Bactrim] Allergy (Verified 08/11/16 13:26) trimethoprim [From Bactrim] Allergy (Verified 08/11/16 13:26) latex [Latex] Adverse Reaction (Verified 08/11/16 13:26) Past Medical History - Social History Smoking Status: Never Smoker Chew tobacco use (# tins/day): No Frequency of alcohol use: None Drug Abuse: None Family History: CVA, Malignancy Patient has suicidal ideation: No Patient has homicidal ideation: No - Past Medical History Cardiac Medical History: Reports: Hx Hypertension - WITH PREG Denies: Hx Coronary Artery Disease, Hx Heart Attack Pulmonary Medical History: Reports: Hx Asthma - NO CURRENT MEDS/LAST EPISODE WAS 03/19 Denies: Hx Bronchitis, Hx COPD, Hx Pneumonia Neurological Medical History: Denies: Hx Cerebrovascular Accident, Hx Seizures Endocrine Medical History: Reports: Hx Hypothyroidism Renal/ Medical History: Denies: Hx Peritoneal Dialysis GI Medical History: Reports: Hx Gastroesophageal Reflux Disease, Hx Ulcer, Hx Colonoscopy, Hx Endoscopy. 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 Denies: Hx Mastectomy, Hx Open Heart Surgery, Hx Pacemaker - Immunizations Immunizations up to date: Yes Hx Diphtheria, Pertussis, Tetanus Vaccination: Yes - 2009 Review of Systems - Review of Systems Constitutional: See HPI EENT: See HPI Cardiovascular: No symptoms reported Respiratory: No symptoms reported Gastrointestinal: No symptoms reported Genitourinary: No symptoms reported Female Genitourinary: No symptoms reported Musculoskeletal: No symptoms reported Skin: No symptoms reported Hematologic/Lymphatic: No symptoms reported Neurological/Psychological: No symptoms reported Physical Exam - Vital signs Vitals: Temp Pulse Resp BP Pulse Ox 98.3 F 82 20 132/84 H 97 08/11/16 13:25 08/11/16 13:25 08/11/16 13:25 08/11/16 13:25 08/11/16 13:25 Interpretation: Hypertensive - Notes Notes: PHYSICAL EXAM: CONSTITUTIONAL: Alert and oriented, well-appearing and in no acute distress. HENT: Normocephalic, atraumatic. Oropharynx clear without erythema, tonsilar exudate or malocclusion. Trachea midline. Uvula midline. Moist mucous membranes. Partial root canal to #32 with multiple dental fillings noted. No buccal or gingival mucosal swelling or area of fluctuance. NECK: supple without lymphadenopathy. No midline tenderness or paraspinous muscle spasms. No step-offs or deformities. ROM intact. HEART: Regular rate and rhythm without murmurs. LUNGS: CTAB and equal. No wheezes, rales or rhonchi. EXTREMITIES: Normal range of motion, no pitting edema. No cyanosis. Cap Refill < 3 seconds. SKIN: Warm and dry. Normal turgor. No rashes or lesions noted. Course - Re-evaluation Re-evalutation: 08/11/16 15:36 Patient seen and examined. Exam consistent with dental pain, no evidence of dental abscess. No respiratory distress, difficulty breathing. Will given pain medication, cover with empiric antibiotics. Advised to maintain follow-up with oral surgeon and for her to call her dentist should she need further pain medication. At this time, will discharge with return precautions and follow-up recommendations. Verbal discharge instructions given at the bedside and opportunity for questions given. Medication warnings reviewed. Patient is in agreement with this plan and has verbalized understanding of return precautions and the need for primary care follow-up in the next 24-72 hours. - Vital Signs Vital signs: Temp Pulse Resp BP Pulse Ox 98.3 F 82 20 132/84 H 97 08/11/16 13:25 08/11/16 13:25 08/11/16 13:25 08/11/16 13:25 08/11/16 13:25 Discharge - Discharge Clinical Impression: Pain, dental Dental implant pain Qualifiers: Encounter type: initial encounter Qualified Code(s): T85.848A - Pain due to other internal prosthetic devices, implants and grafts, initial encounter Condition: Stable Disposition: HOME, SELF-CARE Additional Instructions: Toothache Your pain is due to dental decay. The tooth must be repaired in order for you to feel better. You will, therefore, be referred to a dentist. Severe swelling or drainage around a tooth usually means a deep dental abscess. This also requires evaluation and treatment by the dentist, but antibiotics may be prescribed while awaiting dental treatment. You should be rechecked immediately if you develop major swelling of the face, increasing pain, a lump in the jaw or gums, headache, or fever. Narcotic Abuse You have been given a prescription for pain control. This medication is a narcotic. It's best taken with food, as nausea can result if taken on an empty stomach. Don't operate machinery or drive within six hours of taking this medication. Do not combine this medicine with alcohol, or with any medication which can cause sedation (such as cold tablets or sleeping pills) unless you get permission from the physician. Narcotics tend to cause constipation. If possible, drink plenty of fluids and eat a diet high in fiber and fruits. Please be aware that prescription narcotics also have the potential for abuse. People become addicted to these medications because of the general sense of wellbeing that they induce. This feeling along with a significant reduction in tension, anxiety, and aggression provides a stimulating seductive quality to these drugs. Once your pain is under control, we encourage you to discard your unused narcotics. Antibiotic Therapy You have been given an antibiotic prescription. It's important that you take all the medication, unless instructed otherwise by your physician. Failure to complete the entire course can result in relapse of your condition. Common side effects of antibiotics include nausea, intestinal cramping, or diarrhea. Women may develop vaginal yeast infections, and babies can get yeast (thrush) in the mouth following the use of antibiotics. Contact your physician if you develop significant side effects from this medication. Allergy to this antibiotic can result in hives, wheezing, faintness, or itching. If symptoms of allergy occur, stop the medication and call the doctor. Follow-Up Care Although no definite follow-up visit has been scheduled for you, you should return if there is unexpected worsening or a significant change in your symptoms. Prescriptions: Doxycycline Hyclate 100 mg PO BID #14 capsule Hydrocodone/Acetaminophen [Vicodin 5-300 mg Tablet] 1 tab PO ASDIR PRN #15 tab PRN Reason:
[2016-08-11 16:11] VITALS: BP 130/80
== END 2016-08-11 15:50 | disposition home or self-care (01) ==
LOC: ER 13:13
DX: T85.848A Pain due to other internal prosthetic devices, implants and grafts, initial encounter (principal); K08.89 Other specified disorders of teeth and supporting structures; R68.84 Jaw pain
CPT/HCPCS: 99282

== ENCOUNTER 2016-08-25 14:32 | Emergency (ER) | payer MEDICAID ==
[2016-08-25] MEDS ORDERED: CEPHALEXIN 500 MG CAPSULE PO ONE (15:41)
[2016-08-25] MEDS ORDERED: OXYCODONE-ACETAMINOPHEN 5-325 MG TABLET PO ONE (15:41)
[2016-08-25] MEDS ORDERED: PROMETHAZINE HCL 25 MG TABLET PO ONE (15:41)
--- NOTE | 2016-08-25 15:53 | ER Document Report ---
ED Oral Problem - General Chief Complaint: Toothache Stated Complaint: TOOTH PAIN Notes: Patient had her lower right posterior most molars removed on Saturday. However, in the process, she was told that the root of the tooth broke off and remains in her gum. They attempted to retrieve that fragment of tooth root, but were unable to do so. She is to be referred to an oral surgeon. Patient said that she has some swelling of that area, but it's worsened over the last 2 days. Hurts to touch, swallow, etc., but does not have difficulty swallowing and her voice is normal. No problems with the airway. Not running a fever. TRAVEL OUTSIDE OF THE [place] IN LAST 30 DAYS: No - Related Data Allergies/Adverse Reactions: tramadol [Tramadol] Allergy (Severe, Verified 08/11/16 13:26) ASTHMA SX,HIVES,VOMITING amoxicillin [Amoxicillin] Allergy (Verified 08/11/16 13:26) clindamycin HCl [From Cleocin] Allergy (Verified 08/11/16 13:26) clindamycin palmitate HCl [From Cleocin] Allergy (Verified 08/11/16 13:26) clindamycin phosphate [From Cleocin] Allergy (Verified 08/11/16 13:26) ketorolac tromethamine [From Toradol] Allergy (Verified 08/11/16 13:26) Latex, Natural Rubber Allergy (Verified 08/11/16 13:26) Hives Sulfa (Sulfonamide Antibiotics) Allergy (Verified 08/11/16 13:26) sulfamethoxazole [From Bactrim] Allergy (Verified 08/11/16 13:26) trimethoprim [From Bactrim] Allergy (Verified 08/11/16 13:26) latex [Latex] Adverse Reaction (Verified 08/11/16 13:26) Past Medical History - Social History Smoking Status: Unknown if Ever Smoked Cigarette use (# per day): No Family History: Reviewed & Not Pertinent, CVA, Malignancy Patient has suicidal ideation: No Patient has homicidal ideation: No - Past Medical History Cardiac Medical History: Reports: Hx Hypertension - WITH PREG Pulmonary Medical History: Reports: Hx Asthma - NO CURRENT MEDS/LAST EPISODE WAS 03/19 Endocrine Medical History: Reports: Hx Hypothyroidism GI Medical History: Reports: Hx Gastroesophageal Reflux Disease, Hx Ulcer, Hx Colonoscopy, Hx Endoscopy Musculoskeltal Medical History: Reports Hx Arthritis, Reports Hx Musculoskeletal Deformity - Degenerative disc disease, Reports Hx Musculoskeletal Trauma - Left arm fracture Psychiatric Medical History: Reports: Hx Depression Traumatic Medical History: Reports: Hx Fractures - Left arm Past Surgical History: Reports: Hx Adenoidectomy, Hx Section - x3, Hx Hysterectomy, Hx Myringotomy - Permanent, Hx Nose Surgery - Septoplasty, Hx Oral Surgery - cleft lip and palate, Hx Orthopedic Surgery - left knee, Microdiscectomy, Lumbar laminectomy, DJD, Hx Tonsillectomy, Hx Tubal Ligation - Immunizations Immunizations up to date: Yes Hx Diphtheria, Pertussis, Tetanus Vaccination: Yes - 2009 Review of Systems - Review of Systems Constitutional: denies: Fever EENT: See HPI, Mouth swelling, Dental problem. denies: Throat pain, Difficulty swallowing, Throat swelling Cardiovascular: denies: Chest pain Respiratory: denies: Cough, Short of breath, Wheezing Physical Exam - Vital signs Vitals: Temp Pulse Resp BP Pulse Ox 99.3 F 84 16 129/77 H 100 08/25/16 15:00 08/25/16 15:00 08/25/16 15:00 08/25/16 15:00 08/25/16 15:00 Interpretation: Normal, Febrile - Very low-grade - Notes Notes: PHYSICAL EXAMINATION: GENERAL: Well-appearing, in no acute distress. Ambulatory without difficulty. Vital signs are all essentially normal except for about a one half of a degree elevation of temperature. HEAD: Atraumatic, normocephalic. ENT: oropharynx clear without exudates. Moist mucous membranes. Patient has an empty socket from which her tooth was extracted in the posterior most aspect of the right lower teeth. Over the outer aspect of the right mandible, there is firm, tender, swelling and I don't feel any fluctuance to suggest an abscess collection at this time.. NECK: Normal range of motion, supple. LUNGS: Breath sounds clear and equal bilaterally. HEART: Regular rate and rhythm without murmurs. ABDOMEN: Soft, nontender. No guarding or rebound. BACK: No tenderness throughout entire back. EXTREMITIES: Normal range of motion without pain. SKIN: Warm, dry, no rashes. Course - Re-evaluation Re-evalutation: 08/25/16 20:59 Patient states she is allergic to multiple medications and antibiotics. Says she is allergic to amoxicillin, but the reaction she describes was not an allergic reaction. She did not have rash or hives or wheezing or swelling of the mucous membranes, etc. Therefore, I feel like we can probably use penicillin or Keflex. Just to be certain, I had the patient take a Keflex pill here and sit for an hour while we observed her and she showed no signs of any allergic response at all. - Vital Signs Vital signs: Temp Pulse Resp BP Pulse Ox 98.4 F 84 16 112/74 100 08/25/16 16:40 08/25/16 16:40 08/25/16 16:40 08/25/16 16:40 08/25/16 16:40 Discharge - Discharge Clinical Impression: Dental infection Condition: Stable Disposition: HOME, SELF-CARE Additional Instructions: Dental Infection or Abscess You have an infection, perhaps an abscess (pus formation) of the gum around one of your teeth, which is probably decayed. If there is an abscess, it may drain on its own or it may need to be opened or lanced. Severe swelling or drainage around a tooth usually means a deep dental abscess which usually requires evaluation and treatment by a dentist or oral surgeon. Antibiotics may be prescribed while awaiting dental treatment. If you develop high fever with chills, worsening pain, or increasing swelling in the area, see a dentist or oral surgeon immediately or return to the Emergency Department immediately. ORAL NARCOTIC MEDICATION: You have been given a prescription for pain control. This medication is a narcotic. It's best taken with food, as nausea can result if taken on an empty stomach. Don't operate machinery or drive within six hours of taking this medication. Do not combine this medicine with alcohol, or with any medication which can cause sedation (such as cold tablets or sleeping pills) unless you get permission from the physician. Narcotics tend to cause constipation. If possible, drink plenty of fluids and eat a diet high in fiber and fruits. Cephalexin The antibiotic you've been prescribed is a member of the cephalosporin class. This type of antibiotic covers a wide variety of infections, including those of the skin, lungs, and urinary tract. It's useful for staph infections. This antibiotic is slightly similar to the penicillin family. In rare cases , a person who is allergic to penicillin will also be allergic to this medication. If you have had a severe allergic reaction to penicillin, and have not taken this antibiotic since that time, notify your doctor. Antibiotics which cover many germs ("broad spectrum" antibiotics) are more likely to cause diarrhea or "yeast" infections. Women prone to vaginal yeast problems may suffer an attack after taking this antibiotic. In infants, oral thrush (white spots "stuck" on the cheek) or yeast diaper rash may result. See your doctor if these problems occur. Call at once if you develop itching, hives , shortness of breath, or lightheadedness. Antinausea Medication You have been given a medication to suppress nausea and vomiting. This type of medication can be given as a shot, pill, or suppository. It will usually last for many hours. Pills and shots usually last six to eight hours, suppositories last about 12 hours. For the typical illness, only one or two doses of the medication may be necessary. Mild lightheadedness may occur. This type of medicine can cause drowsiness. Do not drive or operate dangerous machinery while under its influence. Do not mix with alcohol. See your doctor at once if you have muscle spasms or tightness, or uncontrollable motions (particularly of the neck, mouth, or jaw). Persistent vomiting or severe lightheadedness should also be evaluated by the physician. Fluconazole Fluconazole (Diflucan) is an antifungal drug. It is useful for serious fungal infections, but is also excellent for oral or vaginal yeast infections. Diflucan interacts with some medicines. This is a concern if you are taking anticoagulants (such as Coumadin), phenytoin (Dilantin), cyclosporin, or oral hypoglycemics (such as tolbutamide, Orinase, glipizide, Glucotrol, glyburide, DiaBeta, Glynase, and Micronase). Be sure the doctor knows if you are taking one of these medicines. We don't know how Diflucan affects . If you are planning to become , discuss this with your doctor. Diflucan has few side effects. Minor side effects may include nausea, headache, or diarrhea. Call the doctor if you develop a skin rash, shortness of breath, or other new symptoms. FOLLOW-UP CARE: You have been referred for follow-up care to the dentists listed below. Call the dentists office for an appointment as you were instructed or within the next two days. If you experience worsening or a significant change in your symptoms, notify the physician immediately or return to the Emergency Department at any time for re-evaluation. Call your dentist on Saturday morning for them to follow-up your dental infection on that day. If the swelling and pain increases tomorrow, Saturday, return for us to reevaluate your condition. If you develop difficulty breathing or with your airway, return immediately for reassessment. Prescriptions: Cephalexin Monohydrate [Keflex 500 mg Capsule] 500 mg PO QID 6 Days Fluconazole [Diflucan] 150 mg PO ONCE PRN #1 tablet PRN Reason: Oxycodone HCl/Acetaminophen [Percocet 5-325 mg Tablet] 1 - 2 tab PO Q4H PRN #15 tablet PRN Reason: Promethazine HCl [Phenergan 25 mg Tablet] 1 - 2 tab PO Q6H PRN #15 tablet PRN Reason:
[2016-08-25 16:43] VITALS: BP 112/74
== END 2016-08-25 16:40 | disposition home or self-care (01) ==
LOC: ER 14:32
DX: K04.7 Periapical abscess without sinus (principal); K08.89 Other specified disorders of teeth and supporting structures
CPT/HCPCS: 99282; J3490

== ENCOUNTER 2016-09-01 20:12 | Emergency (ER) | payer MEDICAID ==
[2016-09-01 20:56] VITALS: BP 131/86
[2016-09-01] MEDS ORDERED: BUPIVACAINE HCL 0.5%-EPI 1:200000 INJ/PF 30 ML VIAL INJ ONE (23:43)
--- NOTE | 2016-09-01 23:58 | ER Document Report ---
ED Oral Problem - General Chief Complaint: Jaw Pain Stated Complaint: TOOTH PAIN Time seen by provider: 23:57 Mode of Arrival: Ambulatory Information source: Patient TRAVEL OUTSIDE OF THE [place] IN LAST 30 DAYS: No - HPI Patient complains to provider of: Toothache Onset: Other - 4-5 days Onset: Sudden Quality of pain: Achy Severity: Moderate Pain Level: 4 Context: Recent dental extractions Associated symptoms: None Relieved by: Nothing Similar symptoms previously: Yes Recently seen / treated by doctor/dentist: Yes Notes: Patient is a 31-year-old female who presents to the emergency room complaining of dental pain, she reports that on Saturday she had a sequestrectomy procedure performed by Dr. Gardner of [facility], approximate 2 weeks prior to that she had a dental extraction, she denies any fevers, no drainage, denies pain elsewhere - Related Data Allergies/Adverse Reactions: tramadol [Tramadol] Allergy (Severe, Verified 09/01/16 20:53) ASTHMA SX,HIVES,VOMITING amoxicillin [Amoxicillin] Allergy (Verified 09/01/16 20:53) clindamycin HCl [From Cleocin] Allergy (Verified 09/01/16 20:53) clindamycin palmitate HCl [From Cleocin] Allergy (Verified 09/01/16 20:53) clindamycin phosphate [From Cleocin] Allergy (Verified 09/01/16 20:53) ketorolac tromethamine [From Toradol] Allergy (Verified 09/01/16 20:53) Latex, Natural Rubber Allergy (Verified 09/01/16 20:53) Hives Sulfa (Sulfonamide Antibiotics) Allergy (Verified 09/01/16 20:53) sulfamethoxazole [From Bactrim] Allergy (Verified 09/01/16 20:53) trimethoprim [From Bactrim] Allergy (Verified 09/01/16 20:53) latex [Latex] Adverse Reaction (Verified 09/01/16 20:53) Past Medical History - General Information source: Patient - Social History Smoking Status: Never Smoker Family History: Reviewed & Not Pertinent, CVA, Malignancy Patient has suicidal ideation: No Patient has homicidal ideation: No - Past Medical History Cardiac Medical History: Reports: Hx Hypertension - WITH PREG Denies: Hx Coronary Artery Disease, Hx Heart Attack Pulmonary Medical History: Reports: Hx Asthma - NO CURRENT MEDS/LAST EPISODE WAS 03/19 Denies: Hx Bronchitis, Hx COPD, Hx Pneumonia Neurological Medical History: Denies: Hx Cerebrovascular Accident, Hx Seizures Endocrine Medical History: Reports: Hx Hypothyroidism Renal/ Medical History: Denies: Hx Peritoneal Dialysis GI Medical History: Reports: Hx Gastroesophageal Reflux Disease, Hx Ulcer, Hx Colonoscopy, Hx Endoscopy. 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 Denies: Hx Mastectomy, Hx Open Heart Surgery, Hx Pacemaker - Immunizations Immunizations up to date: Yes Hx Diphtheria, Pertussis, Tetanus Vaccination: Yes - 2009 Review of Systems - Review of Systems Constitutional: No symptoms reported EENT: See HPI Cardiovascular: No symptoms reported Respiratory: No symptoms reported Gastrointestinal: No symptoms reported Genitourinary: No symptoms reported Female Genitourinary: No symptoms reported Musculoskeletal: No symptoms reported Skin: No symptoms reported Hematologic/Lymphatic: No symptoms reported Neurological/Psychological: No symptoms reported -: Yes All other systems reviewed and negative Physical Exam - Vital signs Vitals: Temp Pulse Resp BP Pulse Ox 98.3 F 88 20 131/86 H 98 09/01/16 20:53 09/01/16 20:53 09/01/16 20:53 09/01/16 20:53 09/01/16 20:53 - Notes Notes: - General General appearance: Appears well, Alert In distress: None - HEENT Head: Normocephalic, Atraumatic Eyes: Normal Conjunctiva: Normal Extraocular movements intact: Yes Eyelashes: Normal Pupils: PERRL - Respiratory Respiratory status: No respiratory distress - Cardiovascular Rhythm: Regular - Abdominal Inspection: Normal - Back Back: Normal - Extremities General upper extremity: Normal inspection General lower extremity: Normal inspection - Neurological Neuro grossly intact: Yes Orientation: AAOx4 Nathan Coma Scale Eye Opening: Spontaneous Nathan Coma Scale Verbal: Oriented [place] Coma Scale Motor: Obeys Commands Nathan Coma Scale Total: 15 - Psychological Associated symptoms: Normal affect, Normal mood - Skin Skin Temperature: Warm Skin Moisture: Dry Skin Color: Normal - HEENT Mucous membranes: Moist Teeth diagram: 1 - Well-healed surgical scar 2 - Recent dental extraction, no erythema, no swelling, no drainage Course - Re-evaluation Re-evalutation: 09/02/16 00:02 When I initially discussed with patient what pain medication she was taking at home, she reported that she's been taking Tylenol and BC powders, I asked her if her oral surgeon prescribed or anything stronger than that and she stated no , I offered to provide patient with a dental block in the emergency room for relief of her pain, I did review the [place] controlled substance reporting system and it shows that over the past 29 days alone, patient has been prescribed narcotics by 9 different providers in the area, totaling 70 hydrocodone and 151 oxycodone, therefore I believe patient is likely narcotic seeking at this point in time, since she was untruthful with me about recently prescribed narcotics, and nursing staff reports that she immediately eloped from the emergency room after my initial evaluation - Vital Signs Vital signs: Temp Pulse Resp BP Pulse Ox 98.3 F 88 20 131/86 H 98 09/01/16 20:53 09/01/16 20:53 09/01/16 20:53 09/01/16 20:53 09/01/16 20:53 Discharge - Discharge Clinical Impression: Toothache Condition: Stable Disposition: ELOPED
== END 2016-09-02 00:01 | disposition left against medical advice (07) ==
LOC: ER 20:12
DX: K08.89 Other specified disorders of teeth and supporting structures (principal); R68.84 Jaw pain
CPT/HCPCS: 99281

== ENCOUNTER 2016-09-23 13:01 | Emergency (ER) | payer MEDICAID ==
[2016-09-23] MEDS ORDERED: METOCLOPRAMIDE HCL 10 MG TABLET PO ONE (14:28)
[2016-09-23] MEDS ORDERED: DIPHENHYDRAMINE HCL 25 MG CAPSULE PO ONE (14:28)
[2016-09-23] MEDS ORDERED: BUTALB/ACETAMINOPHEN/CAFFEINE 1 TAB EACH PO ONE (14:28)
--- NOTE | 2016-09-23 14:29 | ER Document Report ---
HPI - HPI Patient complains to provider of: headache and right ear pain Pain Level: 4 Context: sinus infection with ear pain in right ear, mild fever and headaches for the past 10 days. Patient was initiated on Augmentin by her primary care on Saturday. But states that the ear pain is made worse over the past couple of days. States that with headache she has had issues with nausea and vomiting even though she has been taking Zofran at home. Patient states that she cannot take Motrin or naproxen and is limited to Tylenol due to her history of stomach ulcers. Patient has known chronic sinusitis issues. History of cleft palate s/ p correction - REPRODUCTIVE Reproductive: DENIES: : - DERM Skin Color: Normal Past Medical History - Social History Smoking Status: Never Smoker Family History: Reviewed & Not Pertinent, CVA, Malignancy Patient has suicidal ideation: No Patient has homicidal ideation: No - Past Medical History Cardiac Medical History: Reports: Hx Hypertension - WITH PREG Denies: Hx Coronary Artery Disease, Hx Heart Attack Pulmonary Medical History: Reports: Hx Asthma - NO CURRENT MEDS/LAST EPISODE WAS 03/19 Denies: Hx Bronchitis, Hx COPD, Hx Pneumonia Neurological Medical History: Denies: Hx Cerebrovascular Accident, Hx Seizures Endocrine Medical History: Reports: Hx Hypothyroidism Renal/ Medical History: Denies: Hx Peritoneal Dialysis GI Medical History: Reports: Hx Gastroesophageal Reflux Disease, Hx Ulcer, Hx Colonoscopy, Hx Endoscopy. 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 Denies: Hx Mastectomy, Hx Open Heart Surgery, Hx Pacemaker - Immunizations Immunizations up to date: Yes Hx Diphtheria, Pertussis, Tetanus Vaccination: Yes - 2009 Vertical Provider Document - CONSTITUTIONAL Agree With Documented VS: Yes Exam Limitations: No Limitations General Appearance: WD/WN, No Apparent Distress Notes: PHYSICAL EXAM GENERAL: Alert, interacts well. HEAD: Normocephalic, atraumatic. EYES: Pupils equal, round, and reactive to light. Extraocular movements intact. ENT: Oral mucosa moist, tongue midline. Uvula midline. Airway patent. No evidence of tonsillar enlargement, peritonsillar abscess, retropharyngeal abscess. This to palpation of the maxillary sinuses worse on the right. Since of chronic ventilation tubes and bilateral tympanic membranes. No evidence of effusion or fluid collection NECK: Full range of motion. Supple. Trachea midline. LUNGS: Clear to auscultation bilaterally, no wheezes, rales, or rhonchi. No respiratory distress. HEART: Regular rate and rhythm. No murmurs, gallops, or rubs. EXTREMITIES: Moves all 4 extremities spontaneously. No edema, radial and dorsalis pedis pulses 2/4 bilaterally. No cyanosis. NEUROLOGICAL: Alert and oriented x4. Normal speech. PSYCH: Normal affect, normal mood. SKIN: Warm, dry, normal turgor. No rashes or lesions noted. - INFECTION CONTROL TRAVEL OUTSIDE OF THE [place] IN LAST 30 DAYS: No - RESPIRATORY O2 Sat by Pulse Oximetry: 98 Course - Re-evaluation Re-evalutation: 09/23/16 21:14 Will continue patients course of abx for augmentin given h/o of sinusitis and will send her home with fioricet given limimitations in NSAIDS. f/u with primary care. Patient does not have any focal neurologic deficits, nuchal rigidity, vital signs are within normal limits no papilledema. Patient is otherwise no acute distress and hemodynamically stable. Low index for suspicion of acute subarachnoid hemorrhage, meningitis or mass. Low suspicion for acute life- threatening etiology with intact neuro exam therefore no additional imaging or laboratory testing is indicated. Will discharge patient home with strict follow -up with PCP for blood pressure check within the next week. - Vital Signs Vital signs: Temp Pulse Resp BP Pulse Ox 98.4 F 86 18 130/76 H 98 09/23/16 13:18 09/23/16 13:18 09/23/16 13:18 09/23/16 13:18 09/23/16 13:18 Discharge - Discharge Clinical Impression: Head ache, Sinus infection Condition: Good Disposition: HOME, SELF-CARE Additional Instructions: Headache is likely due to your current sinus infection. Please take the additional Augmentin as prescribed. Also take the steroid pack as prescribed. Follow-up with your primary care provider in 1 week. Prescriptions: Metoclopramide HCl [Reglan] 5 mg PO Q6HP PRN #15 tablet PRN Reason: Amox Tr/Potassium Clavulanate [Augmentin 875-125 Tablet] 1 tab PO BID 5 Days Butalb/Acetaminophen/Caffeine [Fioricet (50-325-40 mg) Tablet] 1 - 2 tab PO Q4H #20 tab Methylprednisolone [Medrol Dosepack (4 mg/Tab) 21 Tab/Dosepak] 4 mg PO ASDIR PRN #21 tab.ds.pk PRN Reason: Forms: Elevated Blood Pressure
[2016-09-23 14:51] VITALS: BP 130/86
== END 2016-09-23 14:54 | disposition home or self-care (01) ==
LOC: ER 13:01
DX: J32.9 Chronic sinusitis, unspecified (principal); R51 Headache; H92.01 Otalgia, right ear
CPT/HCPCS: 99283; J3490 ×3

== ENCOUNTER 2016-10-08 11:30 | Emergency (ER) | payer MEDICAID ==
[2016-10-08 11:47] VITALS: BP 122/88
--- NOTE | 2016-10-08 13:34 | ER Document Report ---
HPI - HPI Patient complains to provider of: left jaw pain Onset: Yesterday Onset/Duration: Sudden Quality of pain: Achy Severity: Moderate Pain Level: 3 Context: Patient presents emergency department with complaints of severe left-sided jaw pain going into her neck. She reports happened last night when she popped her jaw. Feels like pain shot into her artery and it is swollen. No obvious swelling noted. Patient has history of TMJ. Denies injury, opens mouth wide without problems Associated Symptoms: None Exacerbated by: Other - opens mouth Relieved by: Denies Similar symptoms previously: Yes Recently seen / treated by doctor: No - REPRODUCTIVE Reproductive: DENIES: : - DERM Skin Color: Normal Past Medical History - General Information source: Patient Last Menstrual Period: hyst - Social History Smoking Status: Unknown if Ever Smoked Cigarette use (# per day): No Frequency of alcohol use: None Drug Abuse: None Lives with: Family Family History: Reviewed & Not Pertinent, CVA, Malignancy Patient has suicidal ideation: No Patient has homicidal ideation: No - Past Medical History Cardiac Medical History: Reports: Hx Hypertension - WITH PREG Denies: Hx Coronary Artery Disease, Hx Heart Attack Pulmonary Medical History: Reports: Hx Asthma - NO CURRENT MEDS/LAST EPISODE WAS 03/19 Denies: Hx Bronchitis, Hx COPD, Hx Pneumonia Neurological Medical History: Denies: Hx Cerebrovascular Accident, Hx Seizures Endocrine Medical History: Reports: Hx Hypothyroidism Renal/ Medical History: Denies: Hx Peritoneal Dialysis GI Medical History: Reports: Hx Gastroesophageal Reflux Disease, Hx Ulcer, Hx Colonoscopy, Hx Endoscopy. 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 Denies: Hx Mastectomy, Hx Open Heart Surgery, Hx Pacemaker - Immunizations Immunizations up to date: Yes Hx Diphtheria, Pertussis, Tetanus Vaccination: Yes - 2009 Vertical Provider Document - CONSTITUTIONAL Agree With Documented VS: Yes Exam Limitations: No Limitations General Appearance: WD/WN, No Apparent Distress - INFECTION CONTROL TRAVEL OUTSIDE OF THE [place] IN LAST 30 DAYS: No - HEENT HEENT: Atraumatic, Normocephalic. negative: Conjuctival Injection, Pharyngeal Exudate, Pharyngeal Tenderness, Pharyngeal Erythema - No peritonsillar abscess good clear voice no trismus Mouth Diagram: 1 - TMJ pain, popping - NECK Neck: Normal Inspection, Supple. negative: Lymphadenopathy-Left, Lymphadenopathy-Right - RESPIRATORY Respiratory: Breath Sounds Normal, No Respiratory Distress O2 Sat by Pulse Oximetry: 99 - CARDIOVASCULAR Cardiovascular: Regular Rate - MUSCULOSKELETAL/EXTREMETIES Musculoskeletal/Extremeties: MAEW, FROM - NEURO Level of Consciousness: Awake, Alert, Appropriate Motor/Sensory: No Motor Deficit - DERM Integumentary: Warm, Dry Course - Re-evaluation Re-evalutation: 10/08/16 Patient looks good nontoxic and opens mouth wide no distress, instructed on Tylenol for pain and instructed on the importance of follow-up with oral surgeon. - Vital Signs Vital signs: Temp Pulse Resp BP Pulse Ox 98.2 F 71 16 122/88 H 99 10/08/16 11:45 10/08/16 11:45 10/08/16 11:45 10/08/16 11:45 10/08/16 11:45 Discharge - Discharge Clinical Impression: left side jaw pain, TMJ pain dysfunction syndrome, Elevated blood pressure reading Condition: Stable Disposition: HOME, SELF-CARE Instructions: Temporomandibular Joint Syndrome ([facility]), Acetaminophen Additional Instructions: *You have been evaluated for TMJ pain *Take tylenol as indicated *Follow up with a oral surgeon *Eat soft foods *Return to ED for worsening condition, changes, needs \Monitor your blood pressure. Your blood pressure was elevated today. This may be because you were anxious, in pain or because you need medication. It is important to follow up with your primary care provider for full evaluation. Forms: Elevated Blood Pressure
== END 2016-10-08 14:00 | disposition home or self-care (01) ==
LOC: ER 11:30
DX: M26.622 Arthralgia of left temporomandibular joint (principal); M54.2 Cervicalgia; R03.0 Elevated blood-pressure reading, without diagnosis of hypertension; J45.909 Unspecified asthma, uncomplicated
CPT/HCPCS: 99283

== ENCOUNTER 2017-12-01 14:34 | Emergency (ER) | payer MEDICAID ==
[2017-12-01 14:45] VITALS: BP 131/78
[2017-12-01] MEDS ORDERED: LIDOCAINE 2% VISCOUS SOLN 20 ML UDCUP PO ONE (15:08)
[2017-12-01] MEDS ORDERED: AMOXICILLIN TR/POT CLAVULANATE 500-125 MG TAB PO ONE (15:11)
--- NOTE | 2017-12-01 15:12 | ER Document Report ---
ED Oral Problem - General Chief Complaint: Toothache Stated Complaint: TOOTH PAIN, HEADACHE Time Seen by Provider: 12/01/17 14:58 Mode of Arrival: Ambulatory Information source: Patient Notes: 32-year-old female presents to ED for complaint of dental pain to the left upper jaw. She states she has been waiting for a root canal be approved for the dentist. She denies any fevers chills at this time. Patient planes of pain up to the cheek on the left side from this dental pain. She states it is actually making her ear hurt. She states that also told her she had thrush and she needed medication for the thrush. TRAVEL OUTSIDE OF THE [place] IN LAST 30 DAYS: No - HPI Patient complains to provider of: Sore throat, Toothache Onset: Other - A long time she states she went to the dentist and they did x- rays and showed her that she has an abscess and needs a root canal. Patient states the dentist did not give her any antibiotics Onset: Gradual Quality of pain: Sharp, Throbbing Severity: Moderate Pain Level: 4 Associated symptoms: Toothache Worsened by: Cold Relieved by: Nothing Similar symptoms previously: Yes Recently seen / treated by doctor/dentist: Yes - Related Data Allergies/Adverse Reactions: tramadol [Tramadol] Allergy (Severe, Verified 12/01/17 14:35) ASTHMA SX,HIVES,VOMITING amoxicillin [Amoxicillin] Allergy (Verified 12/01/17 14:35) clindamycin HCl [From Cleocin] Allergy (Verified 12/01/17 14:35) clindamycin palmitate HCl [From Cleocin] Allergy (Verified 12/01/17 14:35) clindamycin phosphate [From Cleocin] Allergy (Verified 12/01/17 14:35) ketorolac tromethamine [From Toradol] Allergy (Verified 12/01/17 14:35) Latex, Natural Rubber Allergy (Verified 12/01/17 14:35) Hives Sulfa (Sulfonamide Antibiotics) Allergy (Verified 12/01/17 14:35) sulfamethoxazole [From Bactrim] Allergy (Verified 12/01/17 14:35) trimethoprim [From Bactrim] Allergy (Verified 12/01/17 14:35) latex [Latex] Adverse Reaction (Verified 12/01/17 14:35) Past Medical History - General Information source: Patient - Social History Smoking Status: Unknown if Ever Smoked Frequency of alcohol use: None Drug Abuse: None Lives with: Family Family History: Reviewed & Not Pertinent, CVA, Malignancy Patient has suicidal ideation: No Patient has homicidal ideation: No - Past Medical History Cardiac Medical History: Reports: Hx Hypertension - WITH PREG Pulmonary Medical History: Reports: Hx Asthma - NO CURRENT MEDS/LAST EPISODE WAS 03/19 EENT Medical History: Reports: None Neurological Medical History: Reports: None Endocrine Medical History: Reports: Hx Hypothyroidism Renal/ Medical History: Reports: None Malignancy Medical History: Reports: None GI Medical History: Reports: Hx Gastroesophageal Reflux Disease, Hx Ulcer, Hx Colonoscopy, Hx Endoscopy Musculoskeletal Medical History: Reports Hx Arthritis, Reports Hx Musculoskeletal Deformity - Degenerative disc disease, Reports Hx Musculoskeletal Trauma - Left arm fracture Skin Medical History: Reports None Psychiatric Medical History: Reports: Hx Depression Traumatic Medical History: Reports: Hx Fractures - Left arm Infectious Medical History: Reports: None Past Surgical History: Reports: Hx Adenoidectomy, Hx Section - x3, Hx Hysterectomy, Hx Myringotomy - Permanent, Hx Nose Surgery - Septoplasty, Hx Oral Surgery - cleft lip and palate, Hx Orthopedic Surgery - left knee, Microdiscectomy, Lumbar laminectomy, DJD, Hx Tonsillectomy, Hx Tubal Ligation - Immunizations Immunizations up to date: Yes Hx Diphtheria, Pertussis, Tetanus Vaccination: Yes - 2009 Review of Systems - Review of Systems Constitutional: No symptoms reported EENT: Mouth pain, Dental problem Cardiovascular: No symptoms reported Respiratory: No symptoms reported Gastrointestinal: No symptoms reported Genitourinary: No symptoms reported Female Genitourinary: No symptoms reported Musculoskeletal: No symptoms reported Skin: No symptoms reported Hematologic/Lymphatic: No symptoms reported Neurological/Psychological: No symptoms reported -: Yes All other systems reviewed and negative Physical Exam - Vital signs Vitals: Temp Pulse Resp BP Pulse Ox 98.4 F 61 16 131/78 H 99 12/01/17 14:42 12/01/17 14:42 12/01/17 14:42 12/01/17 14:42 12/01/17 14:42 Interpretation: Normal - General General appearance: Appears well, Alert - HEENT Head: Normocephalic, Atraumatic Eyes: Normal Pupils: PERRL Ears: Normal External canal: Normal Tympanic membrane: Normal Sinus: Normal, Maxillary, Tenderness. No: Redness, Swelling Nasal: Normal Mouth/Lips: Caries Mucous membranes: Normal Pharynx: Normal Neck: Anterior cervical chain - Respiratory Respiratory status: No respiratory distress Chest status: Nontender Breath sounds: Normal Chest palpation: Normal - Cardiovascular Rhythm: Regular Heart sounds: Normal auscultation Murmur: No - Abdominal Inspection: Normal Distension: No distension Bowel sounds: Normal Tenderness: Nontender Organomegaly: No organomegaly - Back Back: Normal, Nontender - Extremities General upper extremity: Normal inspection, Nontender, Normal color, Normal ROM , Normal temperature General lower extremity: Normal inspection, Nontender, Normal color, Normal ROM , Normal temperature, Normal weight bearing. No: Malathi's sign - Neurological Neuro grossly intact: Yes Cognition: Normal Orientation: AAOx4 Nathan Coma Scale Eye Opening: Spontaneous Nathan Coma Scale Verbal: Oriented [place] Coma Scale Motor: Obeys Commands [place] Coma Scale Total: 15 Speech: Normal Motor strength normal: LUE, RUE, LLE, RLE Sensory: Normal - Psychological Associated symptoms: Normal affect, Normal mood - Skin Skin Temperature: Warm Skin Moisture: Dry Skin Color: Normal Course - Re-evaluation Re-evalutation: 12/01/17 21:09 Patient was given Augmentin and viscous lidocaine for her dental pain. She was also given nystatin for her thrush. She states she recently had Augmentin and those notes she is not allergic to it even though her chart states that she is allergic to amoxicillin. She states she is allergic to penicillin but can take Augmentin with no allergic reactions. After performing a Medical Screening Examination, I estimate there is LOW risk for a DEEP SPACE INFECTION (e.g., ARTUR'S ANGINA OR RETROPHARYNGEAL ABSCESS), MENINGITIS, INTRACRANIAL HEMORRHAGE , or AIRWAY COMPROMISE, thus I consider the discharge disposition reasonable. Also, there is no evidence or peritonitis, sepsis, or toxicity. I have reevaluated this patient multiple times and no significant life threatening changes are noted. The patient and I have discussed the diagnosis and risks, and we agree with discharging home with close follow-up with the understanding that symptoms and presentations can change. We also discussed returning to the Emergency Department immediately if new or worsening symptoms occur. We have discussed the symptoms which are most concerning (e.g., changing or worsening pain, trouble swallowing or breathing, neck stiffness or fever) that necessitate immediate return. - Vital Signs Vital signs: Temp Pulse Resp BP Pulse Ox 98.4 F 61 16 131/78 H 99 12/01/17 14:42 12/01/17 14:42 12/01/17 14:42 12/01/17 14:42 12/01/17 14:42 Discharge - Discharge Clinical Impression: Pain due to dental caries Condition: Stable Disposition: HOME, SELF-CARE Instructions: Oral Thrush ([facility]) Additional Instructions: TOOTHACHE: Your pain is due to dental decay. The tooth must be repaired in order for you to feel better. You will, therefore, be referred to a dentist. We do not have dentists on the staff at [facility]. Severe swelling or drainage around a tooth usually means a dental abscess. This also requires evaluation and treatment by the dentist, but antibiotics may be prescribed while awaiting dental treatment. You should be rechecked immediately if you develop major swelling of the face, increasing pain, a lump in the jaw or gums, headache, difficulty swallowing, or fever. Augmentin Augmentin is a mixture of amoxicillin and clavulanate. Amoxicillin is a member of the penicillin family. It covers the germs likely to cause ear, bronchial, and urinary infections better than plain penicillin. The addition of clavulanate allows it to cover staph infections of the skin, as well as resistant cases of ear and sinus infections. Your physician has chosen Augmentin for you because of the special nature of your situation. Augmentin is best taken with meals. Nausea after taking the medication is rare, but can occur. Diarrhea can occur, particularly in small children. Vaginal yeast infections, and oral thrush in infants are also common. Contact your physician if these problems occur. Allergy to penicillins is common. If you have had an allergic reaction to any drug of the penicillin family, you should never take any other penicillin. Notify your doctor at once if you develop hives, shortness of breath, swelling, or faintness. You state you took Augmentin recently and did not have any problems with it. Salt and soda solution 1 quart of water 1 tablespoon of salt 1 teaspoon of baking soda Mixed 3 ingredients together and boil for 1 minute Placed in a covered quart jar Use 1/2 ounce of cold solution to gargle 3 times a day FOLLOW-UP CARE: You have been referred for follow-up care to the dentists listed below. Call the dentists office for an appointment as you were instructed or within the next two days. If you experience worsening or a significant change in your symptoms, notify the physician immediately or return to the Emergency Department at any time for re-evaluation. [facility] [address] [place], [place] Alex mornings, by appointment [facility] [address] [place] [address] [facility] [place] [address] [facility] [address] [facility] [address] [facility] [email or web address] [address] [place] [address] Saturday- 8:00am to 5:00 pm Will see patients from other [facility]. Charges based on income and family size and accepts Medicare, Medicaid, and Insurances Will pull molars [facility] [address] Hours of Operation 8:00 am - 4:30 pm weekdays The following dental offices accept Medicaid: [facility] Dr. Henry Dr. Mcallister Dr. Ramsey Dr. Boswell Nicholas Burt Lutsavage, and [place] [facility] Dr. Eng ([place]) Dr. Olson ([place]) [facility] Drs. Crowell and Juan ([place]) Dr. Bean ([place]) [facility] Dr. Jimenez ([place]) Drs. Simmons and ([place]) Medicaid Care Line Prescriptions: Amox Tr/Potassium Clavulanate [Augmentin 875-125 Tablet] 1 tab PO BID 10 Days tablet Nystatin/Dexameth/Diphen [Magic Mouthwash ([facility] Formula) Susp] 5 ml PO QID #120 ml Forms: Elevated Blood Pressure
[2017-12-01] MEDS ORDERED: NYSTATIN 500000 UNIT/5 ML UDCUP PO ONE (15:14)
== END 2017-12-01 15:30 | disposition home or self-care (01) ==
LOC: ER 14:34
DX: K02.9 Dental caries, unspecified (principal); K08.89 Other specified disorders of teeth and supporting structures; J02.9 Acute pharyngitis, unspecified; B37.9 Candidiasis, unspecified; J45.909 Unspecified asthma, uncomplicated; Z88.5 Allergy status to narcotic agent; Z88.0 Allergy status to penicillin; Z88.1 Allergy status to other antibiotic agents; Z88.2 Allergy status to sulfonamides; Z91.040 Latex allergy status; Z88.8 Allergy status to other drugs, medicaments and biological substances
CPT/HCPCS: 99282; J3490 ×3

== ENCOUNTER 2018-02-24 10:49 | Emergency (ER) | payer MEDICAID ==
[2018-02-24 10:53] VITALS: BP 123/87
[2018-02-24] MEDS ORDERED: ONDANSETRON 4 MG TAB.RAPDIS PO ONE (11:33)
[2018-02-24] MEDS ORDERED: ACETAMINOPHEN 325 MG TABLET PO ONE (11:33)
--- NOTE | 2018-02-24 11:34 | ER Document Report ---
ED General - General Chief Complaint: Pelvic Pain Stated Complaint: PELVIC PAIN Time Seen by Provider: 02/24/18 11:16 Notes: Patient is a 32-year-old female that presents to the emergency department for chief complaint of left pelvic pain. Patient reports that she has been having this pain she describes as a 4 out of 10 at this time, for the last 3 days, with associated nausea in the left pelvic region, its feels similar to ovarian cyst that she has had in the past. She denies having any dysuria or hematuria. She has had a hysterectomy, but does have both her ovaries. Denies noting any fevers, chills, night sweats, vomiting, diarrhea, chest pain or shortness of breath Past Medical History: Ovarian cysts, hypothyroidism Past Surgical History: On hysterectomy, back surgery, left knee surgery, cleft lip, 3 C-sections Social History: Denies current tobacco, alcohol or drug use Family History: Reviewed and noncontributory for presenting illness Allergies: Reviewed, see documented allergy list. REVIEW OF SYSTEMS: Unless otherwise stated in this report the patient's positive and negative responses for review of systems for constitutional, eyes, ENT, cardiovascular, respiratory, gastrointestinal, neurological, genitourinary, musculoskeletal, and integumentary systems and related systems to the presenting problem are either as stated in the HPI or were not pertinent or were negative for the symptoms and/or complaints related to the presenting medical problem. PHYSICAL EXAMINATION: Vital signs reviewed, nursing noted reviewed. GENERAL: Well-appearing, well-nourished and in no acute distress. HEAD: Atraumatic, normocephalic. EYES: Eyes appear normal, extraocular movements intact, sclera anicteric, conjunctiva are normal. ENT: nares patent, oropharynx clear without exudates. Moist mucous membranes. NECK: Normal range of motion, supple without lymphadenopathy LUNGS: Breath sounds clear to auscultation bilaterally and equal. No wheezes rales or rhonchi. HEART: Regular rate and rhythm without murmurs ABDOMEN: Soft, mild left lower quadrant tenderness with palpation, normoactive bowel sounds. No rebound, guarding, or rigidity. No masses appreciated. EXTREMITIES: Nontender, good range of motion, no pitting or edema. NEUROLOGICAL: No focal neurological deficits. Moves all extremities spontaneously Motor and sensory grossly intact on exam. PSYCH: Normal mood, normal affect. SKIN: Warm, Dry, normal turgor, no rashes or lesions noted on exposed skin TRAVEL OUTSIDE OF THE [place] IN LAST 30 DAYS: No - Related Data Allergies/Adverse Reactions: tramadol [Tramadol] Allergy (Severe, Verified 02/24/18 11:18) ASTHMA SX,HIVES,VOMITING amoxicillin [Amoxicillin] Allergy (Verified 02/24/18 11:18) clindamycin HCl [From Cleocin] Allergy (Verified 02/24/18 11:18) clindamycin palmitate HCl [From Cleocin] Allergy (Verified 02/24/18 11:18) clindamycin phosphate [From Cleocin] Allergy (Verified 02/24/18 11:18) ketorolac tromethamine [From Toradol] Allergy (Verified 02/24/18 11:18) Latex, Natural Rubber Allergy (Verified 02/24/18 11:18) Hives Sulfa (Sulfonamide Antibiotics) Allergy (Verified 02/24/18 11:18) sulfamethoxazole [From Bactrim] Allergy (Verified 02/24/18 11:18) trimethoprim [From Bactrim] Allergy (Verified 02/24/18 11:18) latex [Latex] Adverse Reaction (Verified 02/24/18 11:18) Past Medical History - Social History Smoking Status: Current Every Day Smoker Frequency of alcohol use: None Drug Abuse: None Family History: Reviewed & Not Pertinent, CVA, Malignancy Patient has suicidal ideation: No Patient has homicidal ideation: No - Past Medical History Cardiac Medical History: Reports: Hx Hypertension - WITH PREG Denies: Hx Coronary Artery Disease, Hx Heart Attack Pulmonary Medical History: Reports: Hx Asthma - NO CURRENT MEDS/LAST EPISODE WAS 03/19 Denies: Hx Bronchitis, Hx COPD, Hx Pneumonia Neurological Medical History: Denies: Hx Cerebrovascular Accident, Hx Seizures Endocrine Medical History: Reports: Hx Hypothyroidism Renal/ Medical History: Denies: Hx Peritoneal Dialysis GI Medical History: Reports: Hx Gastroesophageal Reflux Disease, Hx Ulcer, Hx Colonoscopy, Hx Endoscopy. Denies: Hx Hepatitis, Hx Hiatal Hernia Musculoskeletal Medical History: Reports Hx Arthritis, Reports Hx Musculoskeletal Deformity - Degenerative disc disease, Reports Hx Musculoskeletal Trauma - Left arm fracture Psychiatric Medical History: Reports: Hx Depression Traumatic Medical History: Reports: Hx Fractures - Left arm Infectious Medical History: Denies: Hx Hepatitis Past Surgical History: Reports: Hx Adenoidectomy, Hx Section - x3, Hx Hysterectomy, Hx Myringotomy - Permanent, Hx Nose Surgery - Septoplasty, Hx Oral Surgery - cleft lip and palate, Hx Orthopedic Surgery - left knee, Microdiscectomy, Lumbar laminectomy, DJD, Hx Tonsillectomy, Hx Tubal Ligation. Denies: Hx Mastectomy, Hx Open Heart Surgery, Hx Pacemaker - Immunizations Immunizations up to date: Yes Hx Diphtheria, Pertussis, Tetanus Vaccination: Yes - 2009 Physical Exam - Vital signs Vitals: Temp Pulse Resp BP Pulse Ox 98.7 F 93 16 123/87 H 100 02/24/18 10:52 02/24/18 10:52 02/24/18 10:52 02/24/18 10:52 02/24/18 10:52 Course - Re-evaluation Re-evalutation: Patient seen and examined vital signs reviewed. Laboratory data and imaging were ordered as appropriate for the patient's presenting symptoms and complaint, with consideration of any critical or life threatening conditions that may be associated with their obtained history and exam as noted above. Patient was treated with Tylenol and Zofran Results were reviewed when available and demonstrated transvaginal ultrasound, the left ovary is not visualized, however this is reassuring, given that would suspect visualized ovary and ovarian torsion, patient is status post hysterectomy, and her pain is improved, advised this is most likely a cyst, although cannot prove it definitively on the ultrasound, patient stated she was feeling better, and was agreeable to be discharged home, patient given prescription for Zofran, and [place] as a dispense pack from the emergency department and advised if her symptoms worsen to return to the emergency department. Evaluation was most consistent with left pelvic pain Results were discussed with the patient at this point, after careful consideration I feel that that patient can be discharged from the emergency department, the patient was educated treatments and reasons to return to the emergency department based on their presumed diagnosis as noted above, they were advised to followup with a primary care physician in 2-3 days. Patient was agreeable to plan of care. *Note is created using voice recognition software and may contain spelling, syntax or grammatical errors. Laboratory 02/24/18 11:51 Urine Color COLORLESS Urine Appearance CLEAR Urine pH 6.0 Ur Specific [place] 1.009 Urine Protein NEGATIVE Urine Glucose (UA) NEGATIVE Urine Ketones NEGATIVE Urine Blood NEGATIVE Urine Nitrite NEGATIVE Urine Bilirubin NEGATIVE Urine Urobilinogen NEGATIVE Ur Leukocyte Esterase NEGATIVE Urine RBC (Auto) 0 Squamous Epi Cells Auto 1 Urine Mucus (Auto) RARE Urine Ascorbic Acid NEGATIVE Transvaginal US 02/24/18 11:32 IMPRESSION: Left ovary not visualized. No adnexal mass. - Vital Signs Vital signs: Temp Pulse Resp BP Pulse Ox 98.7 F 93 16 123/87 H 100 02/24/18 10:52 02/24/18 10:52 02/24/18 10:52 02/24/18 10:52 02/24/18 10:52 Discharge - Discharge Clinical Impression: Pelvic pain Condition: Stable Disposition: HOME, SELF-CARE Instructions: Pelvic Pain ([facility]) Additional Instructions: Please return to the emergency department if you have any worsening, or concern of your symptoms. Please return to the emergency department if you develop chest pain, difficulty breathing, severe abdominal pain, or ongoing vomiting. Please follow-up with your primary care physician in 2-3 days and any other recommended physicians. If prescribed, take all medications as directed. If you have any questions or concerns do not hesitate to return the emergency department for evaluation. Referrals: [facility] [Provider Group] - Follow up as needed
[2018-02-24 12:17] LABS: APPEARANCE,URINE CLEAR; BILIRUBIN,URINE NEGATIVE (NEGATIVE); COLOR,URINE COLORLESS; GLUCOSE, URINE NEGATIVE (NEGATIVE); KETONES,URINE NEGATIVE (NEGATIVE); LEUKOCYTE ESTERASE,URINE NEGATIVE (NEGATIVE); NITRITE,URINE NEGATIVE (NEGATIVE); PROTEIN,URINE NEGATIVE (NEGATIVE); URINE SPECIFIC GRAVITY 1.009; UROBILINOGEN,URINE NEGATIVE mg/dL (<2.0)
--- NOTE | 2018-02-24 12:51 | RADIOLOGY REPORT (SQ) ---
EXAM DESCRIPTION: U/S NON OB PEL TV W/DOPPLER COMPLETED DATE/TIME: 02/24/2018 12:30 pm REASON FOR STUDY: left pelvic pain COMPARISON: None. TECHNIQUE: Dynamic and static grayscale images acquired of the pelvis via transabdominal and transva ginal approach and recorded on PACS. Additional selected color Doppler and spectral images recorded. LIMITATIONS: None. FINDINGS: UTERUS: Surgically absent. ENDOMETRIAL STRIPE: Surgically absent. CERVIX: Not visualized. RIGHT OVARY AND DOPPLER: Normal size. No worrisome masses. Normal arterial vascular flow without evid ence for torsion. LEFT OVARY AND DOPPLER: Ovary not visualized. FREE FLUID: None noted. OTHER: No other significant finding. MEASUREMENTS: UTERUS: Not applicable. ENDOMETRIAL STRIPE: Not applicable. RIGHT OVARY: 2.5 x 1.1 x 1.3 cm. LEFT OVARY: Not visualized. IMPRESSION: Left ovary not visualized. No adnexal mass. TECHNICAL DOCUMENTATION: JOB ID: [id number] [employer]- All Rights Reserved Rev Reading location - IP/workstation name: [email or web address]
[2018-02-24] MEDS ORDERED: HYDROCODONE/ACETAMINOPHEN 5-325 MG (6 TAB/ER DISP) PO PRN (13:06)
[2018-02-24] MEDS ORDERED: ONDANSETRON ODT 4 MG TAB (6 TAB/ER DISP) PO PRN (13:17)
== END 2018-02-24 13:24 | disposition home or self-care (01) ==
LOC: ER 10:49
DX: R10.2 Pelvic and perineal pain (principal); E03.9 Hypothyroidism, unspecified; R11.0 Nausea; Z90.710 Acquired absence of both cervix and uterus; Z88.6 Allergy status to analgesic agent; Z88.0 Allergy status to penicillin; Z88.2 Allergy status to sulfonamides; Z91.040 Latex allergy status
CPT/HCPCS: 99284; 81001; 76830; 93976; J3490; S0119

== ENCOUNTER 2018-05-14 08:53 | Emergency (ER) | payer MEDICAID ==
--- NOTE | 2018-05-14 09:35 | ER Document Report ---
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 Noted few days ago. Also has a history of neck pain and left shoulder pain. TRAVEL OUTSIDE OF THE [place] IN LAST 30 DAYS: No - Related Data Allergies/Adverse Reactions: tramadol [Tramadol] Allergy (Severe, Verified 05/14/18 08:55) ASTHMA SX,HIVES,VOMITING amoxicillin [Amoxicillin] Allergy (Verified 05/14/18 08:55) clindamycin HCl [From Cleocin] Allergy (Verified 05/14/18 08:55) clindamycin palmitate HCl [From Cleocin] Allergy (Verified 05/14/18 08:55) clindamycin phosphate [From Cleocin] Allergy (Verified 05/14/18 08:55) ketorolac tromethamine [From Toradol] Allergy (Verified 05/14/18 08:55) Latex, Natural Rubber Allergy (Verified 05/14/18 08:55) Hives Sulfa (Sulfonamide Antibiotics) Allergy (Verified 05/14/18 08:55) sulfamethoxazole [From Bactrim] Allergy (Verified 05/14/18 08:55) trimethoprim [From Bactrim] Allergy (Verified 05/14/18 08:55) latex [Latex] Adverse Reaction (Verified 05/14/18 08:55) Past Medical History - Social History Chew tobacco use (# tins/day): No Frequency of alcohol use: Occasional Drug Abuse: None - Past Medical History Cardiac Medical History: Reports: Hx Hypertension - WITH PREG Denies: Hx Coronary Artery Disease, Hx Heart Attack Pulmonary Medical History: Reports: Hx Asthma - NO CURRENT MEDS/LAST EPISODE WAS 03/19 Denies: Hx Bronchitis, Hx COPD, Hx Pneumonia Neurological Medical History: Denies: Hx Cerebrovascular Accident, Hx Seizures Endocrine Medical History: Reports: Hx Hypothyroidism Renal/ Medical History: Denies: Hx Peritoneal Dialysis GI Medical History: Reports: Hx Gastroesophageal Reflux Disease, Hx Ulcer, Hx Colonoscopy, Hx Endoscopy. 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 Denies: Hx Mastectomy, Hx Open Heart Surgery, Hx Pacemaker - Immunizations Immunizations up to date: Yes Hx Diphtheria, Pertussis, Tetanus Vaccination: Yes - 2009 Physical Exam - Vital signs Vitals: Temp Pulse Resp BP Pulse Ox 98.5 F 74 16 129/77 H 100 05/14/18 08:56 05/14/18 08:56 05/14/18 08:56 05/14/18 08:56 05/14/18 08:56 Course - Vital Signs Vital signs: Temp Pulse Resp BP Pulse Ox 98.5 F 74 16 129/77 H 100 05/14/18 08:56 05/14/18 08:56 05/14/18 08:56 05/14/18 08:56 05/14/18 08:56 Doctor's Discharge - Discharge Referrals: OSORIO MICHAEL PA-C [Primary Care Provider] - Follow up as needed
[2018-05-14 09:57] LABS: ABSOLUTE EOSINOPHILS # (AUTO) 0.1 10^3/uL (0.0-0.6); ABSOLUTE LYMPHOCYTES (AUTO) 2.1 10^3/uL (0.5-4.7); ABSOLUTE MONOCYTES (AUTO) 0.3 10^3/uL (0.1-1.4); ABSOLUTE NEUT (AUTO) 3.5 10^3/uL (1.7-8.2); BASOPHILS % (AUTO) 0.5 % (0-2); EOSINOPHILS % (AUTO) 1.5 % (0-6); HEMATOCRIT 41.2 % (36.0-47.0); HEMOGLOBIN 14.1 g/dL (12.0-15.5); LYMPHOCYTES % (AUTO) 34.2 % (13-45); MEAN CORPUSCULAR HEMOGLOBIN 30.8 pg (27.0-33.4); MEAN CORPUSCULAR HGB CONC 34.2 g/dL (32.0-36.0); MEAN CORPUSCULAR VOLUME 90 fl (80-97); MONOCYTES % (AUTO) 5.1 % (3-13); PLATELET COUNT 348 10^3/uL (150-450); RED BLOOD COUNT 4.58 10^6/uL (3.72-5.28); RED CELL DISTRIBUTION WIDTH 12.2 % (11.5-14.0); SEGMENTED NEUTROPHILS % (AUTO) 58.7 % (42-78); TOTAL CELLS COUNTED % (AUTO) 100 %
--- NOTE | 2018-05-14 10:10 | ER Document Report ---
ED General - General Chief Complaint: Breast Problem Stated Complaint: LUMP IN BREAST Time Seen by Provider: 05/14/18 09:30 Notes: Patient is a 32-year-old female that presents to the emergency department for chief complaint of lump and pain in her left breast. Patient states that she noticed a lump in her left breast yesterday, and some associated bruising, she did not notice before. She has not noticed this in the past, denies any assoc iated fevers, chills, but she does describe it is painful, currently rates it as a the left nipple. Still complains of left shoulder pain, but is less concerned about that today, has been going on for over a month, she thinks she may have injured her rotator cuff. She describes the pain in her shoulder as an aching sensation, currently rates that as a 2 out of 10 compared to the breast. Denies having any fevers, chills, night sweats, nausea, vomiting, abdominal pain, chest pain occult he breathing or shortness of breath. She does report family history of breast cancer Past Medical History: Factor II deficiency Past Surgical History: Back surgery, knee surgery, cleft lip and palate, C-se ction, wrist surgery, hysterectomy Social History: Admits to smoking cigarettes, and rare alcohol use, denies illicit drug use Family History: Reviewed and noncontributory for presenting illness Allergies: Reviewed, see documented allergy list. REVIEW OF SYSTEMS: Other than noted above, the 12 point review of systems was reviewed with the patient and were negative, all pertinent findings are included in the HPI. PHYSICAL EXAMINATION: Vital signs reviewed, nursing noted reviewed. GENERAL: Well-appearing, well-nourished and in no acute distress. HEAD: Atraumatic, normocephalic. EYES: Eyes appear normal, extraocular movements intact, sclera anicteric, conjunctiva are normal. ENT: nares patent, oropharynx clear without exudates. Moist mucous membranes. NECK: Normal range of motion, supple without lymphadenopathy LUNGS: Breath sounds clear to auscultation bilaterally and equal. No wheezes rales or rhonchi. Breast exam: Left breast is examined, tank stave assembler present, there is a palpable nodule to the 9:00 to 10 o'clock position just medial to the left nipple, tenderness with palpation, there is healing ecchymosis noted just over this area superficially on the skin. I did evaluate this under bedside ultrasound, and appeared to be more of an abscess and fluid filled area, as opposed to a solid nodule. HEART: Regular rate and rhythm without murmurs ABDOMEN: Soft, nontender, normoactive bowel sounds. No rebound, guarding, or rigidity. No masses appreciated. EXTREMITIES: Nontender, good range of motion, no pitting or edema. NEUROLOGICAL: No focal neurological deficits. Moves all extremities spontaneously Motor and sensory grossly intact on exam. PSYCH: Normal mood, normal affect. SKIN: Warm, Dry, normal turgor, no rashes or lesions noted on exposed skin TRAVEL OUTSIDE OF THE [place] IN LAST 30 DAYS: No - Related Data Allergies/Adverse Reactions: tramadol [Tramadol] Allergy (Severe, Verified 05/14/18 08:55) ASTHMA SX,HIVES,VOMITING amoxicillin [Amoxicillin] Allergy (Verified 05/14/18 08:55) clindamycin HCl [From Cleocin] Allergy (Verified 05/14/18 08:55) clindamycin palmitate HCl [From Cleocin] Allergy (Verified 05/14/18 08:55) clindamycin phosphate [From Cleocin] Allergy (Verified 05/14/18 08:55) ketorolac tromethamine [From Toradol] Allergy (Verified 05/14/18 08:55) Latex, Natural Rubber Allergy (Verified 05/14/18 08:55) Hives Sulfa (Sulfonamide Antibiotics) Allergy (Verified 05/14/18 08:55) sulfamethoxazole [From Bactrim] Allergy (Verified 05/14/18 08:55) trimethoprim [From Bactrim] Allergy (Verified 05/14/18 08:55) latex [Latex] Adverse Reaction (Verified 05/14/18 08:55) Past Medical History - Social History Smoking Status: Current Some Day Smoker Chew tobacco use (# tins/day): No Frequency of alcohol use: Occasional Drug Abuse: None Family History: Reviewed & Not Pertinent, CVA, Malignancy Patient has suicidal ideation: No Patient has homicidal ideation: No - Past Medical History Cardiac Medical History: Reports: Hx Hypertension - WITH PREG Denies: Hx Coronary Artery Disease, Hx Heart Attack Pulmonary Medical History: Reports: Hx Asthma - NO CURRENT MEDS/LAST EPISODE WAS 03/19 Denies: Hx Bronchitis, Hx COPD, Hx Pneumonia Neurological Medical History: Denies: Hx Cerebrovascular Accident, Hx Seizures Endocrine Medical History: Reports: Hx Hypothyroidism Renal/ Medical History: Denies: Hx Peritoneal Dialysis GI Medical History: Reports: Hx Gastroesophageal Reflux Disease, Hx Ulcer, Hx Colonoscopy, Hx Endoscopy. Denies: Hx Hepatitis, Hx Hiatal Hernia Musculoskeletal Medical History: Reports Hx Arthritis, Reports Hx Musculoskele chantel Deformity - Degenerative disc disease, Reports Hx Musculoskeletal Trauma - Left arm fracture Psychiatric Medical History: Reports: Hx Depression Traumatic Medical History: Reports: Hx Fractures - Left arm Infectious Medical History: Denies: Hx Hepatitis Past Surgical History: Reports: Hx Adenoidectomy, Hx Section - x3, Hx Hysterectomy, Hx Myringotomy - Permanent, Hx Nose Surgery - Septoplasty, Hx Oral Surgery - cleft lip and palate, Hx Orthopedic Surgery - left knee, Microdiscectomy, Lumbar laminectomy, DJD, Hx Tonsillectomy, Hx Tubal Ligation. Denies: Hx Mastectomy, Hx Open Heart Surgery, Hx Pacemaker - Immunizations Immunizations up to date: Yes Hx Diphtheria, Pertussis, Tetanus Vaccination: Yes - 2009 Physical Exam - Vital signs Vitals: Temp Pulse Resp BP Pulse Ox 98.5 F 74 16 129/77 H 100 05/14/18 08:56 05/14/18 08:56 05/14/18 08:56 05/14/18 08:56 05/14/18 08:56 Course - Re-evaluation Re-evalutation: Patient seen and examined vital signs reviewed. Laboratory data and imaging were ordered as appropriate for the patient's presenting symptoms and complaint, with consideration of any critical or life threatening conditions that may be associated with their obtained history and exam as noted above. Patient was treated with Tylenol for her pain Results were reviewed when available and demonstrated unremarkable blood work, as noted bedside ultrasound. To look like an abscess, versus cyst The patient was re-evaluated and was stable and improved Evaluation was most consistent with breast abscess versus cyst, advised follow- up with women's health, for formal ultrasound versus mammogram. Patient was agreeable. She was given a prescription for doxycycline for possible infection/abscess of the breast. Results were discussed with the patient at this point, after careful consideration I feel that that patient can be discharged from the emergency department, the patient was educated treatments and reasons to return to the emergency department based on their presumed diagnosis as noted above, they were advised to followup with a primary care physician in 2-3 days. Patient was agreeable to plan of care. *Note is created using voice recognition software and may contain spelling, syntax or grammatical errors. Laboratory 05/14/18 05/14/18 05/14/18 09:43 09:43 10:27 WBC 6.0 RBC 4.58 Hgb 14.1 Hct 41.2 MCV 90 MCH 30.8 MCHC 34.2 RDW 12.2 Plt Count 348 Seg Neutrophils % 58.7 Lymphocytes % 34.2 Monocytes % 5.1 Eosinophils % 1.5 Basophils % 0.5 Absolute Neutrophils 3.5 Absolute Lymphocytes 2.1 Absolute Monocytes 0.3 Absolute Eosinophils 0.1 Absolute Basophils 0.0 PT Cancelled 13.0 INR Cancelled 0.93 - Vital Signs Vital signs: Temp Pulse Resp BP Pulse Ox 98.0 F 67 14 114/73 99 05/14/18 11:30 05/14/18 11:30 05/14/18 11:30 05/14/18 11:30 05/14/18 11:30 - Laboratory Result Diagrams: 05/14/18 09:43 Discharge - Discharge Clinical Impression: Breast abscess, Breast lump Condition: Stable Disposition: HOME, SELF-CARE Instructions: Abscess ([facility]) Additional Instructions: Please follow-up with women's health group, call for an appointment today or tomorrow, take the antibiotics as prescribed. Prescriptions: RX: Doxycycline Hyclate 100 mg PO BID #14 capsule Referrals: OSORIO MICHAEL PA-C [Primary Care Provider] - Follow up as needed [facility] [Provider Group] - Follow up tomorrow
[2018-05-14 10:47] LABS: INTERNATIONAL RATION (INR) 0.93
[2018-05-14] MEDS ORDERED: ACETAMINOPHEN 325 MG TABLET PO ONE (11:15)
[2018-05-14 12:20] VITALS: BP 114/73
== END 2018-05-14 11:30 | disposition home or self-care (01) ==
LOC: ER 08:53
DX: N61.1 Abscess of the breast and nipple (principal); M25.512 Pain in left shoulder; J45.909 Unspecified asthma, uncomplicated; F17.210 Nicotine dependence, cigarettes, uncomplicated; Z88.5 Allergy status to narcotic agent; Z88.1 Allergy status to other antibiotic agents; Z88.0 Allergy status to penicillin; Z91.040 Latex allergy status; Z88.8 Allergy status to other drugs, medicaments and biological substances; Z88.2 Allergy status to sulfonamides
CPT/HCPCS: 99283; 36415; 85025; 85610; J3490

== ENCOUNTER 2018-05-15 14:05 | Emergency (ER) | payer MEDICAID ==
--- NOTE | 2018-05-15 16:25 | RADIOLOGY REPORT (SQ) ---
EXAM DESCRIPTION: U/S BREAST UNILATERAL LIMITED COMPLETED DATE/TIME: 05/15/2018 3:30 pm REASON FOR STUDY: left breast severe pain and tenderness COMPARISON: None TECHNIQUE: Static and Realtime grayscale interrogation of focal area(s) of concern in the left breas t(s) acquired. Selected color doppler/spectral images saved to PACS. LIMITATIONS: None. FINDINGS: In the 9 o'clock position corresponding to palpable abnormality, 2.4 x 1 cm thick-walled f luid collection with no internal flow on color Doppler. IMPRESSION: Small hematoma or abscess. Clinical correlation is needed. BIRAD: 2 Benign findings.. RECOMMENDATION: RECOMMENDED FOLLOW-UP: Follow-up as clinically indicated. COMMENT: The [employer] ([employer]) has developed recommendations for screening MRI of the breasts in certain patient populations, to be used in conjunction with mammography. Breast MRI s urveillance may be appropriate for women with more than 20% lifetime risk of developing breast cancer as determined by genetic testing, significant family history of the disease, or history of mantle r adiation for Hodgkins Disease. [employer] Practice Guidelines 2008. TECHNICAL DOCUMENTATION: FINDING NUMBER: (1) ASSESSMENT: (1) JOB ID: [id number] [employer]- All Rights Reserved Reading location - IP/workstation name: [email or web address]
--- NOTE | 2018-05-15 16:32 | ER Document Report ---
ED Breast Problem - General Chief Complaint: Breast Problem Stated Complaint: LUMP ON BREAST Time Seen by Provider: 05/15/18 14:31 Mode of Arrival: Ambulatory Information source: Patient Notes: Chief complaint: Left breast pain History of complain:( obtained from----patient) 32 years old female was seen yesterday in the ER and sent home. Return back with increasing pain over the left breast on the medial side. No fever chills or other constitutional symptoms Onset: As above Duration: Gradual Severity: Mild to moderate Quality: Sharp Context: Unknown Exacerbating factor and relieving factors: Palpation REVIEW OF SYSTEMS: CONSTITUTIONAL : Denies fever, chills, or sweats. Denies recent illness. EENT: Denies eye, ear, throat, or mouth pain or symptoms. Denies nasal or sinus congestion or discharge. Denies throat, tongue, or mouth swelling or difficulty swallowing. CARDIOVASCULAR: Denies chest pain. Denies palpitations or racing or irregular heart beat. Denies ankle edema. RESPIRATORY: Denies cough, cold, or chest congestion. Denies shortness of breath, difficulty breathing, or wheezing. GASTROINTESTINAL: Denies distention. Denies nausea, vomiting, or diarrhea. Denies blood in vomitus, stools, or per rectum. Denies black, tarry stools. Denies constipation. GENITOURINARY: Denies difficulty urinating, painful urination, burning, frequency, blood in urine, or discharge. FEMALE GENITOURINARY: Denies vaginal bleeding, heavy or abnormal periods, irregular periods. Denies vaginal discharge or odor. MUSCULOSKELETAL: Denies back or neck pain or stiffness. Denies joint pain or swelling. SKIN: Denies rash, lesions or sores. HEMATOLOGIC : Denies easy bruising or bleeding. LYMPHATIC: Denies swollen, enlarged glands. NEUROLOGICAL: Denies confusion or altered mental status. Denies passing out or loss of consciousness. Denies dizziness or lightheadedness. Denies headache. Denies weakness or paralysis or loss of use of either side. Denies problems with gait or speech. Denies sensory loss, numbness, or tingling. Denies seizures. PSYCHIATRIC: Denies anxiety or stress. Denies depression, suicidal ideation, or homicidal ideation. ALL OTHER SYSTEMS REVIEWED AND NEGATIVE. PHYSICAL EXAMINATION: GENERAL: Well-appearing, well-nourished and in no acute distress. HEAD: Atraumatic, normocephalic. EYES: Pupils equal round and reactive to light, extraocular movements intact, conjunctiva are normal. ENT: Nares patent, oropharynx clear without exudates. Moist mucous membranes. NECK: Normal range of motion, supple without lymphadenopathy LUNGS: Breath sounds clear to auscultation bilaterally and equal. No wheezes rales or rhonchi. HEART: Regular rate and rhythm without murmurs Examination of the breast-left breast on the medial side at 9 o'clock position bluish discoloration of the skin noted which is tender and fluctuant on palpation. It is not warm it is not erythematous. ABDOMEN: Soft, nontender, nondistended abdomen. No guarding, no rebound. No masses appreciated. Examination of genitals-deferred Musculoskeletal: Normal range of motion, no pitting or edema. No cyanosis. NEUROLOGICAL: Cranial nerves grossly intact. Normal speech, normal gait. Normal sensory, motor exams PSYCH: Normal mood, normal affect. SKIN: Warm, Dry, normal turgor, no rashes or lesions noted. Dictation was performed using [employer] voice recognition software TRAVEL OUTSIDE OF THE [place] IN LAST 30 DAYS: No - HPI Notes: Dictated - Related Data Allergies/Adverse Reactions: tramadol [Tramadol] Allergy (Severe, Verified 05/15/18 14:07) ASTHMA SX,HIVES,VOMITING amoxicillin [Amoxicillin] Allergy (Verified 05/15/18 14:07) clindamycin HCl [From Cleocin] Allergy (Verified 05/15/18 14:07) clindamycin palmitate HCl [From Cleocin] Allergy (Verified 05/15/18 14:07) clindamycin phosphate [From Cleocin] Allergy (Verified 05/15/18 14:07) ketorolac tromethamine [From Toradol] Allergy (Verified 05/15/18 14:07) Latex, Natural Rubber Allergy (Verified 05/15/18 14:07) Hives Sulfa (Sulfonamide Antibiotics) Allergy (Verified 05/15/18 14:07) sulfamethoxazole [From Bactrim] Allergy (Verified 05/15/18 14:07) trimethoprim [From Bactrim] Allergy (Verified 05/15/18 14:07) latex [Latex] Adverse Reaction (Verified 05/15/18 14:07) Past Medical History - Social History Smoking Status: Current Every Day Smoker Frequency of alcohol use: None Drug Abuse: None Lives with: Family Family History: Reviewed & Not Pertinent, CVA, Malignancy Patient has suicidal ideation: No Patient has homicidal ideation: No - Past Medical History Cardiac Medical History: Reports: Hx Hypertension - WITH PREG Denies: Hx Coronary Artery Disease, Hx Heart Attack Pulmonary Medical History: Reports: Hx Asthma - NO CURRENT MEDS/LAST EPISODE WAS 03/19 Denies: Hx Bronchitis, Hx COPD, Hx Pneumonia Neurological Medical History: Denies: Hx Cerebrovascular Accident, Hx Seizures Endocrine Medical History: Reports: Hx Hypothyroidism Renal/ Medical History: Denies: Hx Peritoneal Dialysis GI Medical History: Reports: Hx Gastroesophageal Reflux Disease, Hx Ulcer, Hx Colonoscopy, Hx Endoscopy. Denies: Hx Hepatitis, Hx Hiatal Hernia Musculoskeletal Medical History: Reports Hx Arthritis, Reports Hx Musculoskeletal Deformity - Degenerative disc disease, Reports Hx Musculoskeletal Trauma - Left arm fracture Psychiatric Medical History: Reports: Hx Depression Traumatic Medical History: Reports: Hx Fractures - Left arm Infectious Medical History: Denies: Hx Hepatitis Past Surgical History: Reports: Hx Adenoidectomy, Hx Section - x3, Hx Hysterectomy, Hx Myringotomy - Permanent, Hx Nose Surgery - Septoplasty, Hx Oral Surgery - cleft lip and palate, Hx Orthopedic Surgery - left knee, Microdiscectomy, Lumbar laminectomy, DJD, Hx Tonsillectomy, Hx Tubal Ligation. Denies: Hx Mastectomy, Hx Open Heart Surgery, Hx Pacemaker - Immunizations Immunizations up to date: Yes Hx Diphtheria, Pertussis, Tetanus Vaccination: Yes - 2009 Review of Systems - Review of Systems Notes: Dictated Physical Exam - Vital signs Vitals: Temp Pulse Resp BP Pulse Ox 98.6 F 95 16 123/75 99 05/15/18 14:21 05/15/18 14:21 05/15/18 14:21 05/15/18 14:05/15/18 14:21 - Notes Notes: Dictated Course - Vital Signs Vital signs: Temp Pulse Resp BP Pulse Ox 98.6 F 95 16 123/75 99 05/15/18 14:21 05/15/18 14:21 05/15/18 14:21 05/15/18 14:21 05/15/18 14:21 - Diagnostic Test Radiology reviewed: Reports reviewed - Ultrasound showed a hematoma or abscess over the 9 o'clock position of the left breast. Discharge - Discharge Clinical Impression: Posttraumatic hematoma of left breast Qualifiers: Encounter type: subsequent encounter Qualified Code(s): S20.02XD - Contusion of left breast, subsequent encounter Condition: Fair Disposition: HOME, SELF-CARE Instructions: Hematoma ([facility]) Prescriptions: Hydrocodone Bit/Acetaminophen [Hydrocodon-Acetaminophen 5-325] 1 each PO TID #14 tablet Referrals: OSORIO MICHAEL PA-C [Primary Care Provider] - Follow up as needed
[2018-05-15 16:49] VITALS: BP 143/89
== END 2018-05-15 16:50 | disposition home or self-care (01) ==
LOC: ER 14:05
DX: S20.02XD Contusion of left breast, subsequent encounter (principal); X58.XXXD Exposure to other specified factors, subsequent encounter; N64.4 Mastodynia; F17.200 Nicotine dependence, unspecified, uncomplicated; Z88.6 Allergy status to analgesic agent; Z88.0 Allergy status to penicillin; Z88.3 Allergy status to other anti-infective agents; Z91.040 Latex allergy status; Z88.2 Allergy status to sulfonamides
CPT/HCPCS: 76642; 99284

== ENCOUNTER 2018-06-10 10:30 | Emergency (ER) | payer MEDICAID ==
[2018-06-10 10:47] VITALS: BP 130/93
[2018-06-10] MEDS ORDERED: LIDOCAINE 5% (700 MG) TRANSDERMAL ADH..PATCH TP ONE (11:21)
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
== END 2018-06-10 11:37 | disposition home or self-care (01) ==
LOC: ER 10:30
DX: M25.512 Pain in left shoulder (principal); M54.5 Low back pain; X50.1XXA Overexertion from prolonged static or awkward postures, initial encounter; Y93.89 Activity, other specified; G89.29 Other chronic pain; R20.2 Paresthesia of skin; F17.200 Nicotine dependence, unspecified, uncomplicated; J45.909 Unspecified asthma, uncomplicated
CPT/HCPCS: 99283; J3490

== ENCOUNTER 2018-06-15 11:45 | Emergency (ER) | payer MEDICAID ==
[2018-06-15 12:07] VITALS: BP 128/74
--- NOTE | 2018-06-15 12:08 | ER Document Report ---
HPI - HPI Time Seen by Provider: 06/15/18 12:00 Pain Level: 3 Notes: Patient is a 32-year-old female who presents to the ED complaining of nasal congestion/discharge, dry nonproductive cough, fever, body ache 2 days. Patient states that she is still eating and drinking without difficulties, but does have a decreased p.o. intake. Pt has had a couple episodes of n/v. She is still urinating normally having normal bowel movements. Patient has been using some [id number]-[id number] meds for symptoms. She denies any significant past medical history including cardiopulmonary history and immunocompromised conditions. Denies any current headache, neck pain, sore throat, chest pain, palpitations, syncope, shortness of breath, wheeze, dyspnea, abdominal pain, nausea/vomiting/diarrhea, urinary retention, dysuria, hematuria, or rash. - ROS Systems Reviewed and Negative: Yes All other systems reviewed and negative - REPRODUCTIVE LMP: 2013 hysterectomy Reproductive: DENIES: : Past Medical History - Social History Smoking Status: Current Every Day Smoker Family History: Reviewed & Not Pertinent, CVA, Malignancy Patient has suicidal ideation: No Patient has homicidal ideation: No - Past Medical History Cardiac Medical History: Reports: Hx Hypertension - WITH PREG Denies: Hx Coronary Artery Disease, Hx Heart Attack Pulmonary Medical History: Reports: Hx Asthma - NO CURRENT MEDS/LAST EPISODE WAS 03/19 Denies: Hx Bronchitis, Hx COPD, Hx Pneumonia Neurological Medical History: Denies: Hx Cerebrovascular Accident, Hx Seizures Endocrine Medical History: Reports: Hx Hypothyroidism Renal/ Medical History: Denies: Hx Peritoneal Dialysis GI Medical History: Reports: Hx Gastroesophageal Reflux Disease, Hx Ulcer, Hx Colonoscopy, Hx Endoscopy. Denies: Hx Hepatitis, Hx Hiatal Hernia Musculoskeletal Medical History: Reports Hx Arthritis, Reports Hx Musculoskeletal Deformity - Degenerative disc disease, Reports Hx Musculoskeletal Trauma - Left arm fracture Psychiatric Medical History: Reports: Hx Depression Traumatic Medical History: Reports: Hx Fractures - Left arm Infectious Medical History: Denies: Hx Hepatitis Past Surgical History: Reports: Hx Adenoidectomy, Hx Section - x3, Hx Hysterectomy, Hx Myringotomy - Permanent, Hx Nose Surgery - Septoplasty, Hx Oral Surgery - cleft lip and palate, Hx Orthopedic Surgery - left knee, Microdiscectomy, Lumbar laminectomy, DJD, Hx Tonsillectomy, Hx Tubal Ligation. Denies: Hx Mastectomy, Hx Open Heart Surgery, Hx Pacemaker - Immunizations Immunizations up to date: Yes Hx Diphtheria, Pertussis, Tetanus Vaccination: Yes - 2009 Vertical Provider Document - CONSTITUTIONAL Agree With Documented VS: Yes Notes: PHYSICAL EXAMINATION: GENERAL: Well-appearing, well-nourished and in no acute distress. A&Ox4. Answers questions appropriately. Moves comfortably w/o notable distress HEAD: Atraumatic, normocephalic. EYES: Pupils equal round and reactive to light, extraocular movements intact, sclera anicteric, conjunctiva are normal. ENT: EAC clear b/l. TM's intact b/l without erythema, fluid, or perforation. Nares patent and with clear discharge. oropharynx no erythema without exudates. No tonsilar hypertrophy without erythema or exudate. No palatine shift. Uvula midline. No tongue protrusion. No drooling, hoarseness, or airway compromise. Moist mucous membranes. No sinus tenderness. NECK: Normal range of motion, supple without lymphadenopathy. No rigidity/meningismus. LUNGS: Breath sounds clear to auscultation bilaterally and equal. No wheezes rales or rhonchi. No retractions HEART: Regular rate and rhythm without murmurs, rubs, gallops. ABDOMEN: Soft, nontender, nondistended abdomen. No guarding, no rebound. Normal bowel sounds present. No CVA tenderness bilaterally. NEUROLOGICAL: Normal speech, normal gait. PSYCH: Normal mood, normal affect. SKIN: Warm, Dry, normal turgor, no rashes or lesions noted. - INFECTION CONTROL TRAVEL OUTSIDE OF THE [place] IN LAST 30 DAYS: No Course - Re-evaluation Re-evalutation: 06/15/18 12:07 Patient is an afebrile, well-hydrated, 32-year-old female who presents to the ED with acute URI, suspect viral/influenza. Vitals are acceptable. PE is otherwise unremarkable. No labs or imaging warranted at this time based on H&P. Patient has no significant cardiopulmonary or immunocompromised medical conditions. Patient's lungs are clear to auscultation bilaterally without tachycardia, hypoxia, or tachypnea. Patient is tolerating p.o. without any difficulties. Thoroughly reviewed the risks, benefits, potential side effects, estimated cost without insurance with patient. After thorough review, patient requested Tamiflu at this time. Low suspicion for any meningitis, sepsis, peritonsillar/pharyngeal abscess, respiratory compromise, severe dehydration, or other emergent systemic condition at this time. Patient is aware this condition can change from initial presentation and she needs to monitor symptoms closely. Conservative measures otherwise for symptoms. Recheck with your PCM in 3-5 days. Return to the ED with any worsening/concerning symptoms otherwise as reviewed in discharge. Patient is in agreement. - Vital Signs Vital signs: Temp Pulse Resp BP Pulse Ox 98.4 F 95 16 128/74 H 99 06/15/18 11:55 06/15/18 11:55 06/15/18 11:55 06/15/18 11:55 06/15/18 11:55 Discharge - Discharge Clinical Impression: Acute URI Condition: Stable Disposition: HOME, SELF-CARE Instructions: Upper Respiratory Illness ([facility]) Additional Instructions: Maintain adequate fluid intake Take meds as directed tylenol/ibuprofen as needed over the counter cold medication as needed for symptoms Humidified air may help Wash your hands regularly Wear a mask when coughing F/u: with your PCM in 3-5 days for a recheck Return to the ED with any fever, worsening pain, chest pain, palpitations, syncope, worsening COWART, neck pain/stiffness, shortness of breath, wheezing, drooling, trouble swallowing/breathing, abdominal pain, n/v/d, rash, or worsening/concerning symptoms otherwise. Prescriptions: Benzonatate [Tessalon Perle 100 mg Capsule] 100 mg PO Q8HP PRN #15 cap PRN Reason: Oseltamivir Phosphate [Tamiflu 75 mg Capsule] 75 mg PO BID #10 capsule Forms: Elevated Blood Pressure, Smoking Cessation Education Referrals: OSORIO MICHAEL PA-C [PHYSICIAN TUNNEL DRIER OPERATOR] - Follow up as needed
== END 2018-06-15 12:16 | disposition home or self-care (01) ==
LOC: ER 11:45
DX: J06.9 Acute upper respiratory infection, unspecified (principal); R09.81 Nasal congestion; R05 Cough; R50.9 Fever, unspecified; R52 Pain, unspecified; F17.200 Nicotine dependence, unspecified, uncomplicated; J45.909 Unspecified asthma, uncomplicated
CPT/HCPCS: 99283

== ENCOUNTER 2018-09-07 04:46 | Emergency (ER) | payer MEDICAID ==
[2018-09-07] MEDS ORDERED: ACETAMINOPHEN 325 MG TABLET PO ONE (05:49)
[2018-09-07 05:56] LABS: A TYPE INFLUENZA AG NEGATIVE (NEGATIVE); B INFLUENZA AG NEGATIVE (NEGATIVE)
[2018-09-07 06:28] VITALS: BP 120/74
--- NOTE | 2018-09-07 06:46 | ER Document Report ---
HPI - HPI Patient complains to provider of: Cough and congestion Time Seen by Provider: 09/07/18 05:49 Pain Level: 4 Context: Patient is a 33-year-old female presents to the emergency department for generalized cough, congestion, sore throat, fever T-max 101.6 for the last 24 hours. Patient states she took Motrin at 0 330 prior to arrival to the emergency room. Patient's denying any nausea, vomiting, diarrhea, chest pain, shortness of breath, abdominal pain, dysuria. Patient is complaining of generalized body aches but is denying any neck pain. Past medical history: Hypothyroid Medications: Synthroid Allergies: Penicillin, clindamycin, sulfa Surgical history, cleft palate repair, hysterectomy, tonsillectomy - CONSTITUTIONAL Constitutional: REPORTS: Fever - At home, per patient, Chills - EENT EENT: REPORTS: Sore Throat - NEURO Neurology: REPORTS: Headache - CARDIOVASCULAR Cardiovascular: DENIES: Chest pain - RESPIRATORY Respiratory: DENIES: Trouble Breathing - REPRODUCTIVE Reproductive: DENIES: : Past Medical History - General Information source: Patient - Social History Smoking Status: Current Every Day Smoker Frequency of alcohol use: Occasional Drug Abuse: None Family History: Reviewed & Not Pertinent, CVA, Malignancy Patient has suicidal ideation: No Patient has homicidal ideation: No - Past Medical History Cardiac Medical History: Reports: Hx Hypertension - WITH PREG Denies: Hx Coronary Artery Disease, Hx Heart Attack Pulmonary Medical History: Reports: Hx Asthma - NO CURRENT MEDS/LAST EPISODE WAS 03/19 Denies: Hx Bronchitis, Hx COPD, Hx Pneumonia Neurological Medical History: Denies: Hx Cerebrovascular Accident, Hx Seizures Endocrine Medical History: Reports: Hx Hypothyroidism Renal/ Medical History: Denies: Hx Peritoneal Dialysis GI Medical History: Reports: Hx Gastroesophageal Reflux Disease, Hx Ulcer, Hx Colonoscopy, Hx Endoscopy. Denies: Hx Hepatitis, Hx Hiatal Hernia Musculoskeletal Medical History: Reports Hx Arthritis, Reports Hx Musculoskeletal Deformity - Degenerative disc disease, Reports Hx Musculoskeletal Trauma - Left arm fracture Psychiatric Medical History: Reports: Hx Depression Traumatic Medical History: Reports: Hx Fractures - Left arm Infectious Medical History: Denies: Hx Hepatitis Past Surgical History: Reports: Hx Adenoidectomy, Hx Section - x3, Hx Hysterectomy, Hx Myringotomy - Permanent, Hx Nose Surgery - Septoplasty, Hx Oral Surgery - cleft lip and palate, Hx Orthopedic Surgery - left knee, M icrodiscectomy, Lumbar laminectomy, DJD, Hx Tonsillectomy, Hx Tubal Ligation. Denies: Hx Mastectomy, Hx Open Heart Surgery, Hx Pacemaker - Immunizations Immunizations up to date: Yes Hx Diphtheria, Pertussis, Tetanus Vaccination: Yes - 2009 Vertical Provider Document - CONSTITUTIONAL Agree With Documented VS: Yes Notes: GENERAL: Alert, interacts well. No acute distress. HEAD: Normocephalic, atraumatic. No frontal or maxillary sinus tenderness noted EYES: Pupils equal, round, and reactive to light. Extraocular movements intact. ENT: Oral mucosa moist, tongue midline. Nares patent, swollen turbinates noted bilaterally, TM's intact, nonerythematous, nonbulging bilaterally. Tympanostomy tube noted in right ear canal no erythema or discharge noted. pharynx minorly erythematous, no palatal petechiae noted NECK: Full range of motion. Supple. Trachea midline. No nuchal rigidity noted. LUNGS: Clear to auscultation bilaterally, no wheezes, rales, or rhonchi. No respiratory distress. HEART: Regular rate and rhythm. No murmur ABDOMEN: Soft, non-tender. Non-distended. Bowel sounds present in all 4 quadrants. EXTREMITIES: Moves all 4 extremities spontaneously. No edema, normal radial and dorsalis pedis pulses bilaterally. No cyanosis. BACK: no cervical, thoracic, lumbar midline tenderness. No saddle anesthesia, normal distal neurovascular exam. NEUROLOGICAL: Alert and oriented x3. Normal speech. cranial nerves II through XII grossly intact PSYCH: Normal affect, normal mood. SKIN: Warm, dry, normal turgor. No rashes or lesions noted. - INFECTION CONTROL TRAVEL OUTSIDE OF THE [place] IN LAST 30 DAYS: No Course - Re-evaluation Re-evalutation: 09/07/18 06:44 Patient's influenza and strep testing negative in the emergency department. She was noted to have a heart rate of 121 upon arrival to the emergency department. Prior to treatment of Tylenol patient's heart rate is noted to be 98 by nursing staff. Patient continues to be afebrile. Discussed with patient likely viral diagnosis and need to follow-up with primary care provider. Discussed use of [id number] allergy medications and Flonase. Patient then voices she takes Singulair, Zyrtec, Lady, and Flonase on a daily basis. I discussed she should follow-up with her primary care provider for continued care. Patient stable for discharge. Do not feel as though this patient needs to be placed on antibiotics for a "sinus infection" as she is requesting. Patient has had 24 hours of symptoms without any frontal or maxillary sinus tenderness noted on examination. Patient voices she is going to go to her primary care provider and get antibiotics. I have discussed she should follow-up with her primary care provider for continued care. Patient continues to be stable for discharge. - Vital Signs Vital signs: Temp Pulse Resp BP Pulse Ox 99.1 F 98 16 120/74 100 09/07/18 04:59 09/07/18 06:28 09/07/18 06:28 09/07/18 06:28 09/07/18 06:28 Discharge - Discharge Clinical Impression: Upper respiratory infection Condition: Stable Disposition: HOME, SELF-CARE Instructions: Upper Respiratory Illness ([facility]), Viral Syndrome ([facility]) Additional Instructions: You have been seen and treated in the emergency department for an upper respiratory infection. These are typically caused by viruses and do not respond to antibiotics. Please also continue to take [id number] Tylenol and Motrin for your generalized body aches, fever. Please stay well-hydrated and get plenty of rest. Please follow-up with your primary care provider in the next 24 to 48 hours. Please return to the emergency room should you have any other concerning symptoms. Referrals: BOBBI RIVERA, LEXC [Primary Care Provider] - Follow up as needed
== END 2018-09-07 06:55 | disposition home or self-care (01) ==
LOC: ER 04:46
DX: J06.9 Acute upper respiratory infection, unspecified (principal); R05 Cough; R09.81 Nasal congestion; J02.9 Acute pharyngitis, unspecified; R50.9 Fever, unspecified; R51 Headache; F17.200 Nicotine dependence, unspecified, uncomplicated; J45.909 Unspecified asthma, uncomplicated
CPT/HCPCS: 99283; 87070; 87880; 87804; J3490

== ENCOUNTER 2018-09-08 13:40 | Emergency (ER) | payer MEDICAID ==
--- NOTE | 2018-09-08 14:53 | ER Document Report ---
ED ENT - General Chief Complaint: Sore Throat Stated Complaint: SORE THROAT Time Seen by Provider: 09/08/18 14:46 Primary Care Provider: BOBBI RIVERA FNP-C [NO LOCAL MD] - Follow up as needed Mode of Arrival: Ambulatory Information source: Patient Notes: 33-year-old female presented to ED for complaint of severe sore throat with white spots to the back of her throat. She states she is having body aches fever chills the last several days. She states her daughter was diagnosed with mono recently. Patient has a history of thyroid deficiency. Iron deficiency anemia. 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 She has had a tonsillectomy in the past but it does appear that she has small tonsils. She has had a bilateral tubal ligation left knee meniscus repair lumbar laminectomy and discectomy. She states she does smoke on the weekends drinks on weekends but no drugs. She is alert oriented respirations regular and unlabored speaking in full sentences. We will get a strep, mono, CBC chemistry and treat accordingly. Apical pulse 104 sats 100% TRAVEL OUTSIDE OF THE [place] IN LAST 30 DAYS: No - HPI Patient complains to provider of: Throat problem Onset: Other - 2 days Quality of pain: Sharp, Stabbing, Other - Body aches Severity: Severe Pain Level: 5 Location of pain: Throat Associated symptoms: Chills, Fever, Sore throat, Swollen glands, Other - Body aches Similar symptoms previously: Yes Recently seen / treated by doctor: No - Related Data Allergies/Adverse Reactions: tramadol [Tramadol] Allergy (Severe, Verified 09/08/18 13:43) ASTHMA SX,HIVES,VOMITING amoxicillin [Amoxicillin] Allergy (Verified 09/08/18 13:43) clindamycin HCl [From Cleocin] Allergy (Verified 09/08/18 13:43) clindamycin palmitate HCl [From Cleocin] Allergy (Verified 09/08/18 13:43) clindamycin phosphate [From Cleocin] Allergy (Verified 09/08/18 13:43) ketorolac tromethamine [From Toradol] Allergy (Verified 09/08/18 13:43) Latex, Natural Rubber Allergy (Verified 09/08/18 13:43) Hives Sulfa (Sulfonamide Antibiotics) Allergy (Verified 09/08/18 13:43) sulfamethoxazole [From Bactrim] Allergy (Verified 09/08/18 13:43) trimethoprim [From Bactrim] Allergy (Verified 09/08/18 13:43) latex [Latex] Adverse Reaction (Verified 09/08/18 13:43) Past Medical History - General Information source: Patient - Social History Smoking Status: Current Some Day Smoker - Weekends Frequency of alcohol use: Social - Weekends Drug Abuse: None Lives with: Family Family History: Reviewed & Not Pertinent, CVA, Malignancy Patient has suicidal ideation: No Patient has homicidal ideation: No - Past Medical History Cardiac Medical History: Reports: Hx Hypertension - WITH PREG Pulmonary Medical History: Reports: Hx Asthma - NO CURRENT MEDS/LAST EPISODE WAS 03/19 EENT Medical History: Reports: Other - Cleft lip and palate repair Neurological Medical History: Reports: None Endocrine Medical History: Reports: Hx Hypothyroidism Renal/ Medical History: Reports: None Malignancy Medical History: Reports: None GI Medical History: Reports: Hx Gastroesophageal Reflux Disease, Hx Ulcer, Hx Colonoscopy, Hx Endoscopy Musculoskeletal Medical History: Reports Hx Arthritis, Reports Hx Musculoskeletal Deformity - Degenerative disc disease, Reports Hx Musculoskelet al Trauma - Left arm fracture Skin Medical History: Reports None Psychiatric Medical History: Reports: Hx Depression Traumatic Medical History: Reports: Hx Fractures - Left arm Infectious Medical History: Reports: None Past Surgical History: Reports: Hx Adenoidectomy, Hx Section - x3, Hx Hysterectomy, Hx Myringotomy - Permanent, Hx Nose Surgery - Septoplasty, Hx Oral Surgery - cleft lip and palate, Hx Orthopedic Surgery - left knee, Microdiscectomy, Lumbar laminectomy, DJD, Hx Tonsillectomy, Hx Tubal Ligation - Immunizations Immunizations up to date: Yes Hx Diphtheria, Pertussis, Tetanus Vaccination: Yes - 2009 Review of Systems - Review of Systems Constitutional: Chills, Fever, Recent illness EENT: Throat pain, Difficulty swallowing Cardiovascular: No symptoms reported Respiratory: No symptoms reported Gastrointestinal: No symptoms reported Genitourinary: No symptoms reported Female Genitourinary: No symptoms reported Musculoskeletal: Muscle pain Skin: No symptoms reported Hematologic/Lymphatic: No symptoms reported Neurological/Psychological: No symptoms reported -: Yes All other systems reviewed and negative Physical Exam - Vital signs Vitals: Temp Pulse Resp BP Pulse Ox 98.4 F 126 H 16 144/97 H 99 09/08/18 13:44 09/08/18 13:44 09/08/18 13:44 09/08/18 13:44 09/08/18 13:44 Interpretation: Normal, Tachycardic - 104. No: Hypoxic - 100% - General General appearance: Appears well, Alert - HEENT Head: Normocephalic, Atraumatic Eyes: Normal Pupils: PERRL Ears: Normal External canal: Normal Tympanic membrane: Perforation - Left is not new, Other - Ear tube in right tympanic membrane Sinus: Normal Nasal: Normal Mouth/Lips: Normal Pharynx: Erythema, Other - Right patches bilateral and oromucosa Neck: Anterior cervical chain, Lymphadenopathy - Respiratory Respiratory status: No respiratory distress Chest status: Nontender Breath sounds: Normal Chest palpation: Normal - Cardiovascular Rhythm: Regular Heart sounds: Normal auscultation Murmur: No - Abdominal Inspection: Normal Distension: No distension Bowel sounds: Normal Tenderness: Nontender Organomegaly: No organomegaly - Back Back: Normal, Nontender - Extremities General upper extremity: Normal inspection, Nontender, Normal color, Normal ROM, Normal temperature General lower extremity: Normal inspection, Nontender, Normal color, Normal ROM, Normal temperature, Normal weight bearing. No: Malathi's sign - Neurological Neuro grossly intact: Yes Cognition: Normal Orientation: AAOx4 Nathan Coma Scale Eye Opening: Spontaneous Nathan Coma Scale Verbal: Oriented [place] Coma Scale Motor: Obeys Commands [place] Coma Scale Total: 15 Speech: Normal Motor strength normal: LUE, RUE, LLE, RLE Sensory: Normal - Psychological Associated symptoms: Normal affect, Normal mood - Skin Skin Temperature: Warm Skin Moisture: Dry Skin Color: Normal Course - Re-evaluation Re-evalutation: 09/08/18 21:04 Lab results were discussed with patient. Patient was treated with steroids and ibuprofen for her sore throat. Strep and mono were both negative. Patient was instructed on use of ibuprofen and warm salt water and to follow-up with her primary doctor if she continued to have pain. Patient was discharged home after she verbalized understanding and agreed with treatment plan. - Vital Signs Vital signs: Temp Pulse Resp BP Pulse Ox 98.7 F 116 H 18 134/87 H 100 09/08/18 16:18 09/08/18 16:18 09/08/18 16:18 09/08/18 16:18 09/08/18 16:18 - Laboratory Result Diagrams: 09/08/18 15:09 09/08/18 15:09 Laboratory results interpreted by me: 09/08/18 15:09 AST 46 H Discharge - Discharge Clinical Impression: Sore throat (viral) Condition: Stable Disposition: HOME, SELF-CARE Additional Instructions: SORE THROAT: Sore throats may be caused by viruses, bacteria, or fungi. Most are due to a virus, and must get better on their own. Bacterial sore throats, particularly those due to "strep," need treatment with antibiotics. If an antibiotic is prescribed, be sure to take the medication for a full 10 days. Failure to take the antibiotic can result in complications such as rheumatic fever. Sometimes, an injection of antibiotics is given instead of pills or liquid. This single "shot" is equal in effectiveness to the oral medication. To relieve symptoms, take acetaminophen for pain. Sip clear liquids frequently, or eat popsicles or ice chips. Anesthetic sprays or lozenges may help. Make sure the air in the room is not too dry. Avoid using decongestants or antihistamines. Call the doctor if there is no improvement in two days, or if you have difficulty breathing, increasing throat pain, high fever, rash, or frequent vomiting. Oral Narcotic Medication You have been given a prescription for pain control. This medication is a narcotic. It's best taken with food, as nausea can result if taken on an empty stomach. Don't operate machinery or drive within six hours of taking this medica tion. Do not combine this medicine with alcohol, or with any medication which can cause sedation (such as cold tablets or sleeping pills) unless you get permission from the physician. Narcotics tend to cause constipation. If possible, drink plenty of fluids and eat a diet high in fiber and fruits. STEROID MEDICATION: You have been given a medicine of the cortisone/steroid class. This medication is used to control inflammation or allergy. It is usually only given for a short period of time, until the acute process subsides. There are usually no side effects from short-term use of cortisone-like medications. Some persons feel an increased sense of well-being and are not sleepy at bedtime. Long-term use of cortisone medications is best avoided, unless required for a severe condition. If your condition does not remit, or relapses after the course of corticosteroid medication, you should consult your physician. FOLLOW-UP CARE: If you have been referred to a physician for follow-up care, call the physicians office for an appointment as you were instructed or within the next two days. If you experience worsening or a significant change in your symptoms, notify the physician immediately or return to the Emergency Department at any time for re-evaluation. Prescriptions: Hydrocodone/Acetaminophen [[place] 5-325 mg Tablet] 1 tab PO HSP PRN #4 tablet PRN Reason: Nystatin/Dexameth/Diphen [Magic Mouthwash ([facility] Formula) Susp] 5 ml PO QID #120 ml Forms: Elevated Blood Pressure, Smoking Cessation Education Referrals: BOBBI RIVERA FNP-C [NO LOCAL MD] - Follow up as needed
[2018-09-08 15:40] LABS: ABSOLUTE LYMPHOCYTES (AUTO) 1.3 10^3/uL (0.5-4.7); ABSOLUTE MONOCYTES (AUTO) 0.7 10^3/uL (0.1-1.4); ABSOLUTE NEUT (AUTO) 6.7 10^3/uL (1.7-8.2); BASOPHILS % (AUTO) 0.3 % (0-2); EOSINOPHILS % (AUTO) 0.2 % (0-6); HEMATOCRIT 42.7 % (36.0-47.0); HEMOGLOBIN 14.6 g/dL (12.0-15.5); LYMPHOCYTES % (AUTO) 14.9 % (13-45); MEAN CORPUSCULAR HEMOGLOBIN 30.5 pg (27.0-33.4); MEAN CORPUSCULAR HGB CONC 34.2 g/dL (32.0-36.0); MEAN CORPUSCULAR VOLUME 89 fl (80-97); MONOCYTES % (AUTO) 8.1 % (3-13); PLATELET COUNT 296 10^3/uL (150-450); RED CELL DISTRIBUTION WIDTH 13.5 % (11.5-14.0); SEGMENTED NEUTROPHILS % (AUTO) 76.5 % (42-78); TOTAL CELLS COUNTED % (AUTO) 100 %; WHITE BLOOD COUNT 8.8 10^3/uL (4.0-10.5)
[2018-09-08 16:01] LABS: ALANINE AMINOTRANSFERASE 51 U/L (9-52); ALKALINE PHOSPHATASE 77 U/L (38-126); ANION GAP 10 (5-19); ASPARTATE AMINO TRANSFERASE 46 U/L (14-36); BILIRUBIN,DIRECT 0.3 mg/dL (0.0-0.4); BILIRUBIN,TOTAL 0.4 mg/dL (0.2-1.3); BLOOD UREA NITROGEN 7 mg/dL (7-20); CALCIUM 9.6 mg/dL (8.4-10.2); CARBON DIOXIDE 27 mmol/L (22-30); CHLORIDE 102 mmol/L (98-107); GLUCOSE 84 mg/dL (75-110); POTASSIUM 4.3 mmol/L (3.6-5.0); SODIUM 138.5 mmol/L (137-145); TOTAL PROTEIN 6.9 g/dL (6.3-8.2)
[2018-09-08 16:22] VITALS: BP 134/87
[2018-09-08] MEDS ORDERED: LIDOCAINE 2% VISCOUS SOLN 20 ML UDCUP PO ONE (16:37)
[2018-09-08] MEDS ORDERED: DEXAMETHASONE SOD PHOS INJ 10 MG/1 ML VIAL IM ONE (16:37)
[2018-09-08] MEDS ORDERED: IBUPROFEN 800 MG TABLET PO ONE (16:38)
== END 2018-09-08 16:50 | disposition home or self-care (01) ==
LOC: ER 13:40
DX: J02.8 Acute pharyngitis due to other specified organisms (principal); B97.89 Other viral agents as the cause of diseases classified elsewhere; R59.0 Localized enlarged lymph nodes; F17.200 Nicotine dependence, unspecified, uncomplicated; R13.10 Dysphagia, unspecified; R50.9 Fever, unspecified; M79.10 Myalgia, unspecified site; Z88.0 Allergy status to penicillin; H72.92 Unspecified perforation of tympanic membrane, left ear; Z96.22 Myringotomy tube(s) status; Z88.5 Allergy status to narcotic agent; Z88.1 Allergy status to other antibiotic agents; Z91.040 Latex allergy status; Z88.8 Allergy status to other drugs, medicaments and biological substances; Z88.2 Allergy status to sulfonamides
CPT/HCPCS: 99283; 96372; 36415; 87070; 87880; 85025; 86308; 80053; J3490 ×2; J1100

== ENCOUNTER 2018-10-06 16:12 | Emergency (ER) | payer MEDICAID ==
[2018-10-06 16:16] VITALS: BP 140/83
[2018-10-06] MEDS ORDERED: OXYCODONE-ACETAMINOPHEN 5-325 MG TABLET PO ONE (17:12)
--- NOTE | 2018-10-06 17:13 | ER Document Report ---
HPI - HPI Patient complains to provider of: back pain Time Seen by Provider: 10/06/18 17:04 Onset: Other - 3-4 weeks Onset/Duration: Persistent Quality of pain: Achy Severity: Severe Pain Level: 4 Context: Patient presents emergency department with complaints of back pain for the past 3 to 4 weeks. Reports history of chronic back pain years ago had back surgery. Recently she rode on her 's motorcycle and started having back pain again. Has been seen by her primary care provider AYLEEN Polo. She had an MRI done on October 03. She will have the results of the MRI with her. She was at her providers office this am when she obtained her ortho referral. she is now waiting for her orthopedic appointment which is scheduled October 15. Patient is here for pain management. Patient reports her provider has told her to take Motrin for the pain. She reports it is not working she is unable to sleep. She denies urinary bowel incontinence or retention. She denies fever vomiting diarrhea. Patient complains of low midline back pain that radiates down her right buttock and down her right leg. She complains of numbness and tingling to her toes. Again she reports the symptoms have been going on for the past 3 to 4 weeks. Associated Symptoms: None Exacerbated by: Denies Relieved by: Denies Similar symptoms previously: Yes Recently seen / treated by doctor: Yes - CONSTITUTIONAL Constitutional: DENIES: Fever, Chills - REPRODUCTIVE Reproductive: DENIES: : - MUSCULOSKELETAL Musculoskeletal: REPORTS: Extremity pain Past Medical History - General Information source: Patient - Social History Smoking Status: Unknown if Ever Smoked Chew tobacco use (# tins/day): No Frequency of alcohol use: None Drug Abuse: None Lives with: Family Family History: Reviewed & Not Pertinent, CVA, Malignancy Patient has suicidal ideation: No Patient has homicidal ideation: No - Past Medical History Cardiac Medical History: Reports: Hx Hypertension - WITH PREG Pulmonary Medical History: Reports: Hx Asthma - NO CURRENT MEDS/LAST EPISODE WAS 03/19 Endocrine Medical History: Reports: Hx Hypothyroidism Renal/ Medical History: Denies: Hx Peritoneal Dialysis GI Medical History: Reports: Hx Gastroesophageal Reflux Disease, Hx Ulcer, Hx Colonoscopy, Hx Endoscopy Musculoskeletal Medical History: Reports Hx Arthritis, Reports Hx Musculoskeletal Deformity - Degenerative disc disease, Reports Hx Musculoskeletal Trauma - Left arm fracture Psychiatric Medical History: Reports: Hx Depression Traumatic Medical History: Reports: Hx Fractures - Left arm Past Surgical History: Reports: Hx Adenoidectomy, Hx Section - x3, Hx Hysterectomy, Hx Myringotomy - Permanent, Hx Nose Surgery - Septoplasty, Hx Oral Surgery - cleft lip and palate, Hx Orthopedic Surgery - left knee, Microdiscectomy, Lumbar laminectomy, DJD, Hx Tonsillectomy, Hx Tubal Ligation. Denies: Hx Mastectomy, Hx Open Heart Surgery - Immunizations Immunizations up to date: Yes Hx Diphtheria, Pertussis, Tetanus Vaccination: Yes - 2009 Vertical Provider Document - CONSTITUTIONAL Agree With Documented VS: Yes Exam Limitations: No Limitations General Appearance: WD/WN, No Apparent Distress - INFECTION CONTROL TRAVEL OUTSIDE OF THE [place] IN LAST 30 DAYS: No - HEENT HEENT: Atraumatic, Normocephalic - NECK Neck: Normal Inspection, Supple. negative: Lymphadenopathy-Left, Lymphadenopathy-Right - RESPIRATORY Respiratory: Breath Sounds Normal, No Respiratory Distress - CARDIOVASCULAR Cardiovascular: Regular Rhythm, Tachycardia - GI/ABDOMEN Gastrointestinal: Abdomen Soft, Abdomen Non-Tender - BACK Back: Normal Inspection - No obvious deformity no erythema no swelling no warmth complains of low mid back pain radiating down her right buttock and right leg. Good distal movement and sensation complains of pain when low back and buttock palpated. - MUSCULOSKELETAL/EXTREMETIES Musculoskeletal/Extremeties: RON OWENS - NEURO Level of Consciousness: Awake, Alert, Appropriate Motor/Sensory: No Motor Deficit Course - Re-evaluation Re-evalutation: 10/06/18 17:19 Patient was instructed on chronic pain management. Patient was also instructed on the importance of her primary care provider or pain management providing her pain control. She verbalized understanding to all instructions. She does have a friend at her side who will be driving her home. I did prescribe her 1 Pe rcocet to use her pain right now. She was also instructed to follow-up with her primary care provider to discuss pain management. Low suspicion for any meningitis, fracture, expanding/ruptured AAA, cauda equina syndrome, epidural mass lesion/abscess, herniated disc causing severe spinal stenosis, or other systemic infection at this time. Patient is aware that this condition can change from initial presentation and that she needs to monitor her symptoms closely for any acute changes. Dictation of this chart was performed using voice recognition software; therefore, there may be some unintended grammatical errors. - Vital Signs Vital signs: Temp Pulse Resp BP Pulse Ox 98.7 F 120 H 16 140/83 H 99 10/06/18 16:15 10/06/18 16:15 10/06/18 16:15 10/06/18 16:15 10/06/18 16:15 Discharge - Discharge Clinical Impression: Back pain Qualifiers: Back pain location: low back pain Chronicity: acute Back pain laterality: unspecified Sciatica presence: with sciatica Sciatica laterality: sciatica of right side Qualified Code(s): M54.41 - Lumbago with sciatica, right side Condition: Stable Disposition: HOME, SELF-CARE Instructions: Ice Packs ([facility]), Low Back Pain ([facility]) Additional Instructions: *You have been evaluated for back pain *Follow up with your provider tomorrow for recheck and to discuss pain management. *Return to ED for worsening condition, changes, needs Referrals: OSORIO MICHAEL PA-C [Primary Care Provider] - Follow up tomorrow
== END 2018-10-06 17:17 | disposition home or self-care (01) ==
LOC: ER 16:12
DX: M54.41 Lumbago with sciatica, right side (principal); J45.909 Unspecified asthma, uncomplicated
CPT/HCPCS: 99283

== ENCOUNTER 2018-10-23 22:38 | Emergency (ER) | payer MEDICAID ==
[2018-10-23 23:39] VITALS: BP 129/86
== END 2018-10-24 01:30 | disposition left against medical advice (07) ==
LOC: ER 22:38
DX: Z53.21 Procedure and treatment not carried out due to patient leaving prior to being seen by health care provider (principal)

== ENCOUNTER 2018-10-24 10:20 | Emergency (ER) | payer MEDICAID ==
[2018-10-24] MEDS ORDERED: HYDROMORPHONE HCL INJ/PF 2 MG/ML AMPULE IM ONE (11:19)
[2018-10-24] MEDS ORDERED: PREGABALIN 100 MG CAPSULE PO ONE (11:21)
[2018-10-24] MEDS ORDERED: DIAZEPAM 5 MG TABLET PO ONE (11:21)
[2018-10-24] MEDS ORDERED: PREDNISONE 20 MG TABLET PO ONE (11:23)
--- NOTE | 2018-10-24 11:29 | ER Document Report ---
ED General - General Chief Complaint: Low Back Pain Stated Complaint: BACK PAIN Time Seen by Provider: 10/24/18 11:04 Primary Care Provider: OSORIO AGUILAR PA-C [Primary Care Provider] - Follow up as needed Mode of Arrival: Ambulatory Information source: Patient, Relative, [facility] Records Notes: 33-year-old female with a history of chronic back pain, prothrombin mutation, hypothyroidism presents with complaint of back pain. Patient states that her back pain started in 2007 with worsening of pain over the last few months. She denies any accidents, falls, known injury. She states the pain started during and worsened after riding her 's motorcycle. Patient's pain is located in her right low back with radiation down to her feet. Her recent MRI p erformed on October 03, 2018 do showed several disc herniations but no evidence of cauda equina. Patient states that she was seen by neurosurgery but because of her prothrombin mutation she was referred to [facility] and does have an upcoming appointment. Patient's prior back histories include a laminectomy in 2009 and a discectomy in 2014. She states her primary care physician Dr. Aguilar nor her surgeon will provide her with any pain medication. Patient describes her pain as a burning constant pain. She denies any saddle anesthesia, midline tenderness, fever, leg weakness, history of IV drug abuse. TRAVEL OUTSIDE OF THE [place] IN LAST 30 DAYS: No - HPI Onset: Other Onset/Duration: Persistent Quality of pain: Burning Severity: Moderate Pain Level: 3 Associated symptoms: Body/muscle aches. denies: Chest pain, Nonproductive cough, Productive cough, Fever, Nausea, Vomiting, Shortness of breath, Sweating, Weakness Exacerbated by: Sitting Relieved by: Standing Similar symptoms previously: Yes Recently seen / treated by doctor: Yes - Related Data Allergies/Adverse Reactions: tramadol [Tramadol] Allergy (Severe, Verified 10/06/18 16:13) ASTHMA SX,HIVES,VOMITING amoxicillin [Amoxicillin] Allergy (Verified 10/06/18 16:13) clindamycin HCl [From Cleocin] Allergy (Verified 10/06/18 16:13) clindamycin palmitate HCl [From Cleocin] Allergy (Verified 10/06/18 16:13) clindamycin phosphate [From Cleocin] Allergy (Verified 10/06/18 16:13) ketorolac tromethamine [From Toradol] Allergy (Verified 10/06/18 16:13) Latex, Natural Rubber Allergy (Verified 10/06/18 16:13) Hives Sulfa (Sulfonamide Antibiotics) Allergy (Verified 10/06/18 16:13) sulfamethoxazole [From Bactrim] Allergy (Verified 10/06/18 16:13) trimethoprim [From Bactrim] Allergy (Verified 10/06/18 16:13) latex [Latex] Adverse Reaction (Verified 10/06/18 16:13) Past Medical History - General Information source: Patient, Relative, [facility] Records - Social History Smoking Status: Current Every Day Smoker Cigarette use (# per day): Yes - 10 Smoking Education Provided: Yes - Smoking cessation counseling was provided for 4 minutes at the bedside Frequency of alcohol use: None Drug Abuse: None Lives with: Family, Spouse/Significant other Family History: Reviewed & Not Pertinent, CVA, Malignancy Patient has suicidal ideation: No Patient has homicidal ideation: No - Past Medical History Cardiac Medical History: Reports: Hx Hypertension - WITH PREG Pulmonary Medical History: Reports: Hx Asthma - NO CURRENT MEDS/LAST EPISODE WAS 03/19 Endocrine Medical History: Reports: Hx Hypothyroidism Renal/ Medical History: Denies: Hx Peritoneal Dialysis GI Medical History: Reports: Hx Gastroesophageal Reflux Disease, Hx Ulcer, Hx Colonoscopy, Hx Endoscopy Musculoskeletal Medical History: Reports Hx Arthritis, Reports Hx Musculoskeletal Deformity - Degenerative disc disease, Reports Hx Musculoskeletal Trauma - Left arm fracture Psychiatric Medical History: Reports: Hx Depression Traumatic Medical History: Reports: Hx Fractures - Left arm Past Surgical History: Reports: Hx Adenoidectomy, Hx Section - x3, Hx Hysterectomy, Hx Myringotomy - Permanent, Hx Nose Surgery - Septoplasty, Hx Oral Surgery - cleft lip and palate, Hx Orthopedic Surgery - left knee, Microdiscectomy, Lumbar laminectomy, DJD, Hx Tonsillectomy, Hx Tubal Ligation. Denies: Hx Mastectomy, Hx Open Heart Surgery - Immunizations Immunizations up to date: Yes Hx Diphtheria, Pertussis, Tetanus Vaccination: Yes - 2009 Review of Systems - Review of Systems Notes: REVIEW OF SYSTEMS: CONSTITUTIONAL : Denies fever, chills, or sweats. Denies recent illness. Denies weight loss, recent hospitalizations. EENT: Denies visual changes, eye pain. Denies sore throat, oral lesions, difficulty swallowing. CARDIOVASCULAR: Denies chest pain. Denies palpitations. Denies lower extremity edema. RESPIRATORY: Denies cough. Denies shortness of breath, wheezing. GASTROINTESTINAL: Denies abdominal pain or distention. Denies nausea, vomiting, or diarrhea. Denies blood in vomitus, stools, or per rectum. Denies black, tarry stools. Denies constipation. GENITOURINARY: Denies difficulty urinating, painful urination, frequency, blood in urine, or vaginal discharge. MUSCULOSKELETAL: Denies neck pain or stiffness. Denies joint pain or swelling. SKIN: Denies rash, lesions or sores. HEMATOLOGIC : Denies easy bruising or bleeding. LYMPHATIC: Denies swollen glands. NEUROLOGICAL: Denies confusion or altered mental status. Denies loss of consciousness. Denies dizziness or lightheadedness. Denies headache. Denies weakness or paralysis. Denies problems difficulty with ambulation, slurred speech. Denies sensory loss, numbness, or tingling. Denies seizures. PSYCHIATRIC: Denies anxiety or stress. Denies depression, suicidal ideation, or homicidal ideation. Denies visual or auditory hallucinations. Physical Exam - Vital signs Vitals: Temp Pulse Resp BP Pulse Ox 97.9 F 90 18 132/81 H 97 10/24/18 10:46 10/24/18 10:46 10/24/18 10:46 10/24/18 10:46 10/24/18 10:46 - Notes Notes: PHYSICAL EXAMINATION: GENERAL: Well-appearing, well-nourished and in no acute distress. HEAD: Atraumatic, normocephalic. EYES: Pupils equal round and reactive to light, extraocular movements intact, conjunctiva are normal. ENT: Nares patent, oropharynx clear without exudates. Moist mucous membranes. NECK: Normal range of motion, supple without lymphadenopathy LUNGS: Breath sounds clear to auscultation bilaterally and equal. No wheezes rales or rhonchi. HEART: Regular rate and rhythm without murmurs ABDOMEN: Soft, nontender, nondistended abdomen. No guarding, no rebound. No masses appreciated. Female : deferred Musculoskeletal: Normal range of motion, no pitting or edema. No cyanosis. Tenderness with palpation to the paraspinal musculature of the lumbar spine, ri ght sciatic notch. NEUROLOGICAL:Mental status; alert and oriented x3. Cranial nerves II through XII intact. Sensation intact to sharp/dull differentiation in all extremities. Motor; normal tone. No abnormal movements appreciated. No pronator drift. Strength tested and 5/5 in bilateral wrist flexion/extension, elbow flexion/extension, shoulder abduction, straight leg raise, knee flexion/exten lacie, ankle dorsiflexion/plantar flexion. Patient ambulates with a steady gait. Coordination; no ataxia. Finger to nose and heel to landrum testing intact bilaterally. Tandem gait normal Reflexes; brachial radialis, biceps, and patellar reflexes within normal limits and symmetric bilaterally. Babinski with downgoing toes bilaterally. PSYCH: Tearful SKIN: Warm, Dry, normal turgor, no rashes or lesions noted. Course - Re-evaluation Re-evalutation: 10/25/18 12:43 Patient is a 33-year-old female with chronic back pain. Patient has been having back pain since 2007. Pain is mostly located on her right side with radiation down her right leg. Patient MRI dated October 02, 2018 which does show that patient has degeneration, bulging disks but no obvious need for emergent neurosurgery intervention. Patient has been seen several times for her chronic back pain with her last documented visit a few weeks ago where she was specifically told that the emergency department is unable to continue to treat her chronic pain. Both the patient and patient's are very upset and immediately asked to speak to the medical technologist microbiology. Patient states that her primary care physician, neurosurgeon they will not provide her with any pain relief. She states due to a blood disorder she must now seek her care at [facility] and does not have a scheduled appointment for several weeks. Patient has no fever, midline tenderness, saddle anesthesia, urinary retention, fecal incontinence, history of IV drug abuse, lower extremity weakness. Patient did receive Lyrica, Valium and a IM shot of morphine during her ED 3 weeks. Prescription was provided to the patient she does report success with this medication in the past. Presentation of a well appearing patient complaining of acute on chronic back pain. No rapid progression of symptoms, systemic symptoms including fevers, chills, weight loss, history of recent bacterial infection, bilateral symptoms, numbness, weakness, difficulty walking, urinary retention or bowel incontinence, personal history of cancer, immunosuppression, diabetes, known AAA, or history of IV drug use. Exam is without point tenderness over vertebral bodies, pulsatile abdominal mass, and patient has symmetric and intact lower extremity strength, sensation, and reflexes without clonus. 2+ symmetric medial malleolar and dorsalis pedis pulses Based on history and physical, I have a very low suspicion of a concerning etiology of pain including epidural compression syndrome, spinal infection, t ransverse myelitis, malignancy, abdominal aortic aneurysm, renal colic, acute lower extremity claudication, neurogenic claudication, ankylosing spondylitis, or other intra-abdominal process. Due to absence of concerning risk factors in history and physical as well as absence of rapidly progressive, severe, or bilateral symptoms, will defer imaging at this point. - Vital Signs Vital signs: Temp Pulse Resp BP Pulse Ox 97.8 F 80 18 126/84 H 98 10/24/18 12:33 10/24/18 12:33 10/24/18 12:33 10/24/18 12:33 10/24/18 12:33 Discharge - Discharge Clinical Impression: Acute exacerbation of chronic low back pain Condition: Good Disposition: HOME, SELF-CARE Instructions: Chronic Back Pain ([facility]), Ice Packs ([facility]), Low Back Pain ([facility]), Pain Medication Injection ([facility]), Sciatica ([facility]) Prescriptions: Pregabalin [Lyrica 100 Mg Capsule] 100 mg PO BID 7 Days #14 capsule Referrals: OSORIO AGUILAR PA-C [Primary Care Provider] - Follow up as needed
[2018-10-24 12:33] VITALS: BP 126/84
== END 2018-10-24 12:33 | disposition home or self-care (01) ==
LOC: ER 10:20
DX: G89.29 Other chronic pain (principal); M54.5 Low back pain; D68.52 Prothrombin gene mutation; J45.909 Unspecified asthma, uncomplicated; F17.210 Nicotine dependence, cigarettes, uncomplicated; Z71.6 Tobacco abuse counseling; Z98.890 Other specified postprocedural states; Z88.5 Allergy status to narcotic agent; Z88.0 Allergy status to penicillin; Z88.1 Allergy status to other antibiotic agents; Z88.8 Allergy status to other drugs, medicaments and biological substances; Z91.040 Latex allergy status; Z88.2 Allergy status to sulfonamides
CPT/HCPCS: 99283; 96372; J3490 ×2; J1170; J7512

== ENCOUNTER 2018-12-24 14:56 | Emergency (ER) | payer MEDICAID ==
[2018-12-24 15:03] VITALS: BP 128/87
--- NOTE | 2018-12-24 15:55 | RADIOLOGY REPORT (SQ) ---
EXAM DESCRIPTION: L SPINE WHOLE COMPLETED DATE/TIME: 12/24/2018 3:45 pm REASON FOR STUDY: LBP COMPARISON: None. NUMBER OF VIEWS: Five views including obliques. TECHNIQUE: AP, lateral, oblique, and sacral radiographic images acquired of the lumbar spine. LIMITATIONS: None. FINDINGS: MINERALIZATION: Normal. SEGMENTATION: Normal. No transitional anatomy. ALIGNMENT: Normal. VERTEBRAE: Maintained height. No fracture or worrisome bone lesion. DISCS: Focally moderate disc space height loss and osteophytosis of L4-L5. Disc spaces are otherwise well preserved. POSTERIOR ELEMENTS: Pedicles and facets are intact. No pars defect or posterior arch defects. HARDWARE: None in the spine. PARASPINAL SOFT TISSUES: Normal. PELVIS: Intact as visualized. No fractures or worrisome bone lesions. SI joints intact. OTHER: No other significant finding. IMPRESSION: No fracture or dislocation of the lumbar spine. There is focally moderate disc space he ight loss and osteophytosis of L4-L5. Disc spaces are otherwise well preserved. Lumbar disc and lizzette ral foraminal pathology may be further evaluated by MRI if indicated by localizing signs and symptoms . TECHNICAL DOCUMENTATION: JOB ID: [id number] [employer]- All Rights Reserved Reading location - IP/workstation name: [email or web address]
[2018-12-24] MEDS ORDERED: DIAZEPAM 5 MG TABLET PO ONE (16:04)
[2018-12-24] MEDS ORDERED: HYDROMORPHONE HCL INJ/PF 2 MG/ML AMPULE IM ONE (16:04)
--- NOTE | 2018-12-24 16:07 | ER Document Report ---
ED General - General Chief Complaint: Back Pain Stated Complaint: BACK PAIN Time Seen by Provider: 12/24/18 15:09 Primary Care Provider: OSORIO MICHAEL PA-C [Primary Care Provider] - Follow up as needed Notes: Patient is a 33-year-old female with chronic back pain presents the emergency department with a chief complaint of low back pain. [place] and caught herself before she actually hit the floor. She states that she has had sharp pains in her lower back since then. She had recent surgery on November 27, 2017 for her chronic back problems. She states that she ended up having a CSF leak during that surgery and [facility]. She also has a past history of a laminectomy in 2009 and discectomy in 2019. Patient denies any loss of bladder or bowel function. No history of IV drug abuse. Patient has a prothrombin mutation, GERD, hypothyroidism. She is currently on Tylenol, stool softeners, Synthroid, Nexium, Lovenox, Robaxin, and gabapentin. She states that medications that she is currently on is not helping with her acute pain from slipping yesterday. Patient adamantly denies actually falling on her back or on her sacrum. TRAVEL OUTSIDE OF THE [place] IN LAST 30 DAYS: No - Related Data Allergies/Adverse Reactions: tramadol [Tramadol] Allergy (Severe, Verified 10/06/18 16:13) ASTHMA SX,HIVES,VOMITING amoxicillin [Amoxicillin] Allergy (Verified 10/06/18 16:13) clindamycin HCl [From Cleocin] Allergy (Verified 10/06/18 16:13) clindamycin palmitate HCl [From Cleocin] Allergy (Verified 10/06/18 16:13) clindamycin phosphate [From Cleocin] Allergy (Verified 10/06/18 16:13) ketorolac tromethamine [From Toradol] Allergy (Verified 10/06/18 16:13) Latex, Natural Rubber Allergy (Verified 10/06/18 16:13) Hives Sulfa (Sulfonamide Antibiotics) Allergy (Verified 10/06/18 16:13) sulfamethoxazole [From Bactrim] Allergy (Verified 10/06/18 16:13) trimethoprim [From Bactrim] Allergy (Verified 10/06/18 16:13) latex [Latex] Adverse Reaction (Verified 10/06/18 16:13) Past Medical History - Social History Smoking Status: Never Smoker Frequency of alcohol use: Social Drug Abuse: None Family History: Reviewed & Not Pertinent, CVA, Malignancy Patient has suicidal ideation: No Patient has homicidal ideation: No - Past Medical History Cardiac Medical History: Reports: Hx Hypertension - WITH PREG Pulmonary Medical History: Reports: Hx Asthma - NO CURRENT MEDS/LAST EPISODE WAS 03/19 Endocrine Medical History: Reports: Hx Hypothyroidism Renal/ Medical History: Denies: Hx Peritoneal Dialysis GI Medical History: Reports: Hx Gastroesophageal Reflux Disease, Hx Ulcer, Hx Colonoscopy, Hx Endoscopy Musculoskeletal Medical History: Reports Hx Arthritis, Reports Hx Musculoskeletal Deformity - Degenerative disc disease, Reports Hx Musculoskeletal Trauma - Left arm fracture Psychiatric Medical History: Reports: Hx Depression Traumatic Medical History: Reports: Hx Fractures - Left arm Past Surgical History: Reports: Hx Adenoidectomy, Hx Section - x3, Hx Hysterectomy, Hx Myringotomy - Permanent, Hx Nose Surgery - Septoplasty, Hx Oral Surgery - cleft lip and palate, Hx Orthopedic Surgery - left knee, Microdiscectomy, Lumbar laminectomy, DJD, Hx Tonsillectomy, Hx Tubal Ligation. Denies: Hx Mastectomy, Hx Open Heart Surgery - Immunizations Immunizations up to date: Yes Hx Diphtheria, Pertussis, Tetanus Vaccination: Yes - 2009 Review of Systems - Review of Systems Notes: REVIEW OF SYSTEMS: CONSTITUTIONAL : Denies recent illness. Denies recent unintentional weight loss. Denies fever, chills, or sweats. EENT: Denies eye, ear, throat, or mouth pain, discharge, or symptoms. Denies nasal or sinus congestion. CARDIOVASCULAR: Denies chest pain. RESPIRATORY: Denies shortness of breath, cough, congestion, difficulty breathing, or wheezing. GASTROINTESTINAL: Denies nausea, vomiting, and diarrhea. Denies abdominal pain. Denies constipation. GENITOURINARY: Denies difficulty urinating, burning, blood in urine, urgency or frequency. MUSCULOSKELETAL: See HPI SKIN: Denies rash, itchiness, or lesions HEMATOLOGIC : Denies easy bruising or bleeding. LYMPHATIC: Denies swollen, painful, enlarged glands. NEUROLOGICAL: Denies numbness or tingling denies weakness. Denies headache. Denies altered mental status. Denies alteration in speech. PSYCHIATRIC: Denies stress, anxiety, alteration in sleep patterns, or depression. All other systems reviewed and negative. Physical Exam - Vital signs Vitals: Temp Pulse Resp BP Pulse Ox 98.6 F 100 18 128/87 H 96 12/24/18 15:02 12/24/18 15:02 12/24/18 15:02 12/24/18 15:02 12/24/18 15:02 - Notes Notes: PHYSICAL EXAMINATION: GENERAL: Appears well, healthy, well-nourished, no acute distress. HEAD: Normocephalic, atraumatic. EYES: PERRL, conjunctiva normal, all extraocular movements intact, sclera nonicteric ENT: Moist mucous membranes. NECK: Supple, no noticeable swelling, redness, rash. Normal range of motion. LUNGS: Equal breath sounds bilaterally and clear to auscultation. No wheezes rales or rhonchi. CARDIOVASCULAR: S1-S2, regular rate, regular rhythm. Radial pulses 2+, normal. ABDOMEN: Normoactive bowel sounds. Soft, nontender, no guarding, no rebound tenderness, and no masses palpated. EXTREMITIES: Normal strength and range of motion, no pitting or edema. No cyanosis. NEUROLOGICAL: Moves all extremities upon command. Strength 5/5 in all extremities. PSYCH: Normal mood, normal affect. SKIN: Warm, dry. No rash, lesions, ulcerations noted. Normal skin turgor. BACK: Tender paraspinal area on lower back. Course - Re-evaluation Re-evalutation: 12/24/18 16:07 Patient's x-ray is negative for any acute fractures or any abnormalities with her recent surgery. Since the patient did not actually fall on her back or her sacrum, I suspect the pain that she is having is muscular in nature. I will treat her pain with a dose of Valium and an IM injection of Dilaudid, as this helped her in the past. I told her that I will not send her home with any medications, since she is currently on multiple medications for pain and her surgeon does not want her on more pain medication. She is in agreement with this plan. Differential diagnosis for back pain includes muscle spasm, muscle strain, slipped disc cauda equina syndrome, vertebral fracture, vertebral tumor, epidural abscess, pyelonephritis, or AAA. Based on history and exam, the most likely etiology of the patient's back pain is acute muscle spasms. Emergent MRI is not indicated at this time because the patient does not have new weakness, or cauda equina syndrome. Patient does not have bladder or bowel dysfunction. Patient does not have history of IV drug use, therefore, I do not suspect an epidural abscess. Patient does not have recent weight loss or night sweats, and does not have a known history of cancer. Follow-up precautions were given. Verbal discharge instructions were given to the patient. They verbalized understanding. They are stable for discharge. - Vital Signs Vital signs: Temp Pulse Resp BP Pulse Ox 98.6 F 100 18 128/87 H 96 12/24/18 15:02 12/24/18 15:02 12/24/18 15:02 12/24/18 15:02 12/24/18 15:02 Discharge - Discharge Clinical Impression: Back pain Qualifiers: Back pain location: low back pain Chronicity: unspecified Back pain laterality: bilateral Sciatica presence: with sciatica Sciatica laterality: bilateral sciatica Qualified Code(s): M54.42 - Lumbago with sciatica, left side; M54.41 - Lumbago with sciatica, right side Condition: Stable Disposition: HOME, SELF-CARE Additional Instructions: You were seen today in the emergency department for back pain. Your x-ray was normal. Please keep your follow-up appointment with your back surgeon. See if he can possibly get an earlier appointment. If you have loss of bladder or bowel function, have new weakness, please return to the emergency department. Referrals: OSORIO MICHAEL PA-C [Primary Care Provider] - Follow up as needed
[2018-12-24] MEDS ORDERED: HYDROMORPHONE HCL INJ/PF 2 MG/ML AMPULE ONE ×2 (16:13→16:44)
[2018-12-24] MEDS ORDERED: DIAZEPAM 5 MG TABLET ONE (16:13)
== END 2018-12-24 16:51 | disposition home or self-care (01) ==
LOC: ER 14:56
DX: M54.41 Lumbago with sciatica, right side (principal); M54.42 Lumbago with sciatica, left side; W18.40XA Slipping, tripping and stumbling without falling, unspecified, initial encounter; Y92.34 Swimming pool (public) as the place of occurrence of the external cause; G89.29 Other chronic pain; J45.909 Unspecified asthma, uncomplicated; K21.9 Gastro-esophageal reflux disease without esophagitis; E03.9 Hypothyroidism, unspecified; D68.52 Prothrombin gene mutation; Z79.899 Other long term (current) drug therapy; Z79.02 Long term (current) use of antithrombotics/antiplatelets; Z98.890 Other specified postprocedural states; Z88.5 Allergy status to narcotic agent; Z88.0 Allergy status to penicillin; Z88.1 Allergy status to other antibiotic agents; Z88.8 Allergy status to other drugs, medicaments and biological substances; Z91.040 Latex allergy status; Z88.2 Allergy status to sulfonamides
CPT/HCPCS: 72110; J3490; J1170; 96374; 99283

== ENCOUNTER 2019-06-07 13:06 | Emergency (ER) | payer MEDICAID ==
--- NOTE | 2019-06-07 13:48 | ER Document Report ---
ED Medical Screen (RME) - General Chief Complaint: Dizziness Stated Complaint: DIZZINESS, LEFT EAR PAIN Time Seen by Provider: 06/07/19 13:38 Primary Care Provider: OSORIO MICHAEL PA-C [Primary Care Provider] - Follow up as needed Mode of Arrival: Ambulatory Information source: Patient Notes: This 33-year-old female presents with multiple complaints to clear and left- sided ear pain cough does not feel well diarrhea. Reports she has been treated by [facility] since April with multiple medications. She is currently taking Omnicef and neomycin eardrops. She denies fever or vomiting. I have greeted and performed a rapid initial assessment of this patient. A comprehensive ED assessment and evaluation of the patient, analysis of test results and completion of the medical decision making process will be conducted by additional ED providers. TRAVEL OUTSIDE OF THE [place] IN LAST 30 DAYS: No - Related Data Allergies/Adverse Reactions: tramadol [Tramadol] Allergy (Severe, Verified 06/07/19 13:34) ASTHMA SX,HIVES,VOMITING clindamycin HCl [From Cleocin] Allergy (Verified 06/07/19 13:34) clindamycin palmitate HCl [From Cleocin] Allergy (Verified 06/07/19 13:34) clindamycin phosphate [From Cleocin] Allergy (Verified 06/07/19 13:34) ketorolac tromethamine [From Toradol] Allergy (Verified 06/07/19 13:34) Latex, Natural Rubber Allergy (Verified 06/07/19 13:34) Hives Sulfa (Sulfonamide Antibiotics) Allergy (Verified 06/07/19 13:34) sulfamethoxazole [From Bactrim] Allergy (Verified 06/07/19 13:34) trimethoprim [From Bactrim] Allergy (Verified 06/07/19 13:34) latex [Latex] Adverse Reaction (Verified 06/07/19 13:34) Past Medical History - Past Medical History Cardiac Medical History: Reports: Hx Hypertension - WITH PREG Pulmonary Medical History: Reports: Hx Asthma - NO CURRENT MEDS/LAST EPISODE WAS 03/19 Endocrine Medical History: Reports: Hx Hypothyroidism Renal/ Medical History: Denies: Hx Peritoneal Dialysis GI Medical History: Reports: Hx Gastroesophageal Reflux Disease, Hx Ulcer, Hx Colonoscopy, Hx Endoscopy Musculoskeltal Medical History: Reports Hx Arthritis, Reports Hx Musculoskeletal Deformity - Degenerative disc disease, Reports Hx Musculoskeletal Trauma - Left arm fracture Psychiatric Medical History: Reports: Hx Depression Traumatic Medical History: Reports: Hx Fractures - Left arm Past Surgical History: Reports: Hx Adenoidectomy, Hx Section - x3, Hx Hysterectomy, Hx Myringotomy - Permanent, Hx Nose Surgery - Septoplasty, Hx Oral Surgery - cleft lip and palate, Hx Orthopedic Surgery - left knee, Microdiscectomy, Lumbar laminectomy, DJD, Hx Tonsillectomy, Hx Tubal Ligation. Denies: Hx Mastectomy, Hx Open Heart Surgery - Immunizations Immunizations up to date: Yes Hx Diphtheria, Pertussis, Tetanus Vaccination: Yes - 2009 Physical Exam - Vital signs Vitals: Temp Pulse Resp BP Pulse Ox 98.4 F 104 H 18 140/82 H 99 06/07/19 13:06/07/19 13:06/07/19 13:06/07/19 13:06/07/19 13:09 Course - Vital Signs Vital signs: Temp Pulse Resp BP Pulse Ox 98.4 F 104 H 18 140/82 H 99 06/07/19 13:06/07/19 13:06/07/19 13:06/07/19 13:06/07/19 13:09 Doctor's Discharge - Discharge Referrals: OSORIO MICHAEL PA-C [Primary Care Provider] - Follow up as needed
[2019-06-07 14:26] LABS: ABSOLUTE EOSINOPHILS # (AUTO) 0.1 10^3/uL (0.0-0.6); ABSOLUTE LYMPHOCYTES (AUTO) 1.9 10^3/uL (0.5-4.7); ABSOLUTE MONOCYTES (AUTO) 0.4 10^3/uL (0.1-1.4); ABSOLUTE NEUT (AUTO) 7.8 10^3/uL (1.7-8.2); BASOPHILS % (AUTO) 0.2 % (0-2); EOSINOPHILS % (AUTO) 0.9 % (0-6); HEMATOCRIT 44.4 % (36.0-47.0); HEMOGLOBIN 15.5 g/dL (12.0-15.5); LYMPHOCYTES % (AUTO) 18.7 % (13-45); MEAN CORPUSCULAR HEMOGLOBIN 31.1 pg (27.0-33.4); MEAN CORPUSCULAR HGB CONC 34.9 g/dL (32.0-36.0); MEAN CORPUSCULAR VOLUME 89 fl (80-97); MONOCYTES % (AUTO) 4.3 % (3-13); PLATELET COUNT 411 10^3/uL (150-450); RED BLOOD COUNT 4.98 10^6/uL (3.72-5.28); RED CELL DISTRIBUTION WIDTH 13.1 % (11.5-14.0); SEGMENTED NEUTROPHILS % (AUTO) 75.9 % (42-78); TOTAL CELLS COUNTED % (AUTO) 100 %; WHITE BLOOD COUNT 10.3 10^3/uL (4.0-10.5)
--- NOTE | 2019-06-07 14:26 | RADIOLOGY REPORT (SQ) ---
EXAM DESCRIPTION: CHEST 2 VIEWS COMPLETED DATE/TIME: 06/07/2019 2:14 pm REASON FOR STUDY: hx pneum bronchitis COMPARISON: 04/08/2016 EXAM PARAMETERS: NUMBER OF VIEWS: two views TECHNIQUE: Digital Frontal and Lateral radiographic views of the chest acquired. RADIATION DOSE: NA LIMITATIONS: none FINDINGS: LUNGS AND PLEURA: No opacities, masses or pneumothorax. No pleural effusion. MEDIASTINUM AND HILAR STRUCTURES: No masses or contour abnormalities. HEART AND VASCULAR STRUCTURES: Heart normal size. No evidence for failure. BONES: No acute findings. HARDWARE: None in the chest. OTHER: No other significant finding. IMPRESSION: NO ACUTE RADIOGRAPHIC FINDING IN THE CHEST. TECHNICAL DOCUMENTATION: JOB ID: [id number] [employer]- All Rights Reserved Reading location - IP/workstation name: [email or web address]
[2019-06-07 14:39] LABS: ALBUMIN 3.6 g/dL (3.5-5.0); ALKALINE PHOSPHATASE 47 U/L (38-126); ANION GAP 6 (5-19); ASPARTATE AMINO TRANSFERASE 20 U/L (14-36); BILIRUBIN,TOTAL 0.2 mg/dL (0.2-1.3); BLOOD UREA NITROGEN 13 mg/dL (7-20); CALCIUM 9.2 mg/dL (8.4-10.2); CARBON DIOXIDE 30 mmol/L (22-30); CHLORIDE 103 mmol/L (98-107); GLUCOSE 95 mg/dL (75-110); POTASSIUM 3.9 mmol/L (3.6-5.0); TOTAL PROTEIN 6.1 g/dL (6.3-8.2)
[2019-06-07] MEDS ORDERED: CEFTRIAXONE INJ 1000 MG VIAL IM ONE (15:54)
[2019-06-07 16:28] VITALS: BP 115/77
--- NOTE | 2019-06-07 17:24 | ER Document Report ---
Entered by LUIS AMADO SCRIBE 06/07/19 1540 Acting as scribe for:HARRIETT MURPHY MD ED ENT - General Chief Complaint: Ear Pain Stated Complaint: DIZZINESS, LEFT EAR PAIN Time Seen by Provider: 06/07/19 13:38 Primary Care Provider: QUINTIN AGUILAR PA-C [Primary Care Provider] - Follow up as needed Mode of Arrival: Ambulatory Information source: Patient Notes: This 33-year-old female patient presents to the emergency department today with multiple complaints including a dry nonproductive cough as well as left ear pain. Patient states her cough has been present since April 14 and she has been treated with "3 antibiotics that are not working" by her PCP Quintin Aguilar at [facility]. Patient also has been put on a steroid inhaler and steroids and she states these have not helped either. Patient states she was told that her x-ray showed "severe bronchitis" at the PCP's office. Patient states that she has erythromycin drops at home so she put them in her left ear yesterday and it "burned". Patient also complains of dizziness. TRAVEL OUTSIDE OF THE [place] IN LAST 30 DAYS: No - Related Data Allergies/Adverse Reactions: tramadol [Tramadol] Allergy (Severe, Verified 06/07/19 13:34) ASTHMA SX,HIVES,VOMITING clindamycin HCl [From Cleocin] Allergy (Verified 06/07/19 13:34) clindamycin palmitate HCl [From Cleocin] Allergy (Verified 06/07/19 13:34) clindamycin phosphate [From Cleocin] Allergy (Verified 06/07/19 13:34) ketorolac tromethamine [From Toradol] Allergy (Verified 06/07/19 13:34) Latex, Natural Rubber Allergy (Verified 06/07/19 13:34) Hives Sulfa (Sulfonamide Antibiotics) Allergy (Verified 06/07/19 13:34) sulfamethoxazole [From Bactrim] Allergy (Verified 06/07/19 13:34) trimethoprim [From Bactrim] Allergy (Verified 06/07/19 13:34) latex [Latex] Adverse Reaction (Verified 06/07/19 13:34) Past Medical History - General Information source: Patient - Social History Smoking Status: Current Every Day Smoker Cigarette use (# per day): Yes Chew tobacco use (# tins/day): No Frequency of alcohol use: None Drug Abuse: None Lives with: Family Family History: Reviewed & Not Pertinent, CVA, Malignancy Patient has suicidal ideation: No Patient has homicidal ideation: No - Past Medical History Cardiac Medical History: Reports: Hx Hypertension - WITH PREG Pulmonary Medical History: Reports: Hx Asthma - NO CURRENT MEDS/LAST EPISODE WAS 03/19 Endocrine Medical History: Reports: Hx Hypothyroidism Renal/ Medical History: Denies: Hx Peritoneal Dialysis GI Medical History: Reports: Hx Gastroesophageal Reflux Disease, Hx Ulcer, Hx Colonoscopy, Hx Endoscopy Musculoskeletal Medical History: Reports Hx Arthritis, Reports Hx Musculoskeletal Deformity - Degenerative disc disease, Reports Hx Musculoskeletal Trauma - Left arm fracture Psychiatric Medical History: Reports: Hx Depression Traumatic Medical History: Reports: Hx Fractures - Left arm Past Surgical History: Reports: Hx Adenoidectomy, Hx Section - x3, Hx Hysterectomy, Hx Myringotomy - Permanent, Hx Nose Surgery - Septoplasty, Hx Oral Surgery - cleft lip and palate, Hx Orthopedic Surgery - left knee, Microdiscect domenic, Lumbar laminectomy, DJD, Hx Tonsillectomy, Hx Tubal Ligation. Denies: Hx Mastectomy, Hx Open Heart Surgery - Immunizations Immunizations up to date: Yes Hx Diphtheria, Pertussis, Tetanus Vaccination: Yes - 2009 Review of Systems - Review of Systems Constitutional: See HPI, Fever EENT: See HPI, Ear pain, Nose congestion Cardiovascular: See HPI, Dizziness Respiratory: No symptoms reported Gastrointestinal: No symptoms reported Genitourinary: No symptoms reported Female Genitourinary: No symptoms reported Musculoskeletal: No symptoms reported Skin: No symptoms reported Hematologic/Lymphatic: No symptoms reported Neurological/Psychological: No symptoms reported -: Yes All other systems reviewed and negative Physical Exam - Vital signs Vitals: Temp Pulse Resp BP Pulse Ox 98.4 F 104 H 18 140/82 H 99 06/07/19 13:09 06/07/19 13:09 06/07/19 13:06/07/19 13:06/07/19 13:09 - Notes Notes: Physical Exam: General: Alert, appears well. Facial changes consistent with cleft palate history. HEENT: Normocephalic. Atraumatic. PERRL. Extraocular movements intact. Oropharynx clear. TMs are dull bilaterally, myringotomy tube in the right ear. Neck: Supple. Non-tender. Respiratory: No respiratory distress. Clear and equal breath sounds bilaterally. Cardiovascular: Regular rate and rhythm. Abdominal: Normal Inspection. Non-tender. No distension. Normal Bowel Sounds. Back: No gross abnormalities. Extremities: Moves all four extremities. Upper extremities: Normal inspection. Normal ROM. Lower extremities: Normal inspection. No edema. Normal ROM. Neurological: Normal cognition. AAOx4. Normal speech. Psychological: Normal affect. Normal Mood. Skin: Warm. Dry. Normal color. Course - Re-evaluation Re-evalutation: 06/07/19 15:53 Discussed with patient chest x-ray did not show any infiltrates normal exam. Discussed her lab results showing that there is not an elevated white blood cell count and chemistries are completely normal. - Vital Signs Vital signs: Temp Pulse Resp BP Pulse Ox 98.4 F 104 H 18 140/82 H 99 06/07/19 13:09 06/07/19 13:09 06/07/19 13:09 06/07/19 13:09 06/07/19 13:09 - Laboratory Result Diagrams: 06/07/19 14:04 06/07/19 14:04 Laboratory results interpreted by me: 06/07/19 14:04 Total Protein 6.1 L Discharge - Discharge Clinical Impression: Headache, Earache on left Sinusitis Qualifiers: Sinusitis location: pansinusitis Recurrence: recurrent Otitis media Qualifiers: Otitis media type: suppurative Chronicity: chronic Laterality: left Condition: Stable Disposition: HOME, SELF-CARE Instructions: Antinausea Medication ([facility]), Meclizine ([facility]) Additional Instructions: Labyrinthitis Labyrinthitis is a temporary disease of the inner ear. It's sometimes called vestibulitis. It often starts a few days after a cold or virus infection. Symptoms include vertigo (the spinning type of dizziness) or a sense of unsteadiness and nausea. The symptoms usually go away in a couple of days without any treatment. You should rest and keep your head still. The dizziness is worse if you move your head. Closing the eyes usually helps. Don't drive, work with dangerous machinery, or get up on ladders or scaffolds until a few days after the dizziness resolves. Medicine such as meclizine (Antivert, Bonine) can reduce the dizziness and nausea. Tranquilizers (such as diazepam) can suppress your sense of balance, reducing the unpleasantness of the vertigo. Call or return if you develop ear pain, loss of hearing, fever, severe vomiting, or any other new symptom. Otitis Externa You have otitis externa -- an infection of the outer ear canal. This can be very painful. It's sometimes called "swimmer's ear," because it often occurs after prolonged water exposure. Many things, such as earwax and dirt in the ear, can contribute to it. The usual treatment is antibiotic/antiinflammatory ear drops. Occasionally, a wick will be placed in the ear to draw in the medicine. If the infection is severe, an oral antibiotic may be prescribed. Pain medication is often needed. Avoid getting water in the ear. Outer ear infections often take longer to heal than you might expect. Some tenderness and ache in the ear may persist for about two weeks. See your physician if you fail to improve as expected. Call the doctor at once if you develop fever, increasing swelling (particularly if it makes your ear "poke out"), severe headache, stiff neck, or decreased hearing. Bronchitis You have acute bronchitis. This disease is an infection or inflammation of the air passageways in your lungs. Symptoms usually include cough, low grade fever, shortness of breath, and wheezing. The cough usually persists for a couple of weeks. Most cases of bronchitis get better without antibiotics. We prescribe antibiotics when we believe bacteria are damaging your airways, or if there's h igh risk the bronchitis will worsen into pneumonia. Increase your fluid intake. A cool mist humidifier may make your lungs more comfortable. An expectorant (cough medicine that loosens phlegm) can help. If you smoke, STOP!!! Recovery from bronchitis can be somewhat slow, but you should see improvement within a day or two. Repeated episodes of bronchitis may result in lung damage -- for example, chronic bronchitis, recurrent pneumonias, or emphysema. Call the doctor if you develop increasing fever, shortness of breath, chest pain, bloody sputum, or otherwise worsen. If you have not improved at all after several days, contact the physician. Sinusitis You have sinusitis, an infection of the sinus cavities of the face. The sinuses are air-filled chambers which open into the inside of the nose. Bacteria and pus fill a sinus, causing pain, drainage, and fever. Sinusitis is treated with antibiotics. Often, expectorants (to thin the sinus mucous) or decongestants (to reduce swelling) are prescribed as well. Healing requires seven to 10 days. Avoid chemical fumes, pollens, dusts, and smoke (especially cigarette smoke). Keep the air humidified in your bedroom and work area and take plenty of liquids by mouth. This condition can be serious if the infection spreads. If your symptoms worsen, or if you develop severe headache, high fever, stiff neck, or a rash, you must call the doctor or return for re-evaluation. Additional instructions to take for pain I recommend Tylenol and or ibuprofen as needed. Consider applying warm compress to left ear area. Also recommend that you begin using high-dose vitamin C 2000 milligrams twice daily. At this dosing vitamin C acts like an antihistamine, anti-inflammatory, and an antibiotic. Complete your current course of antibiotics Omnicef Prescriptions: Meclizine HCl [Antivert 25 mg Tablet] 25 mg PO TID PRN #21 tablet PRN Reason: Ciprofloxacin HCl/Dexameth [Ciprodex Otic Suspension 7.5 ml Bottle] 4 drop LFT_EAR BID 7 Days #1 bottle Referrals: QUINTIN AGUILAR PA-C [Primary Care Provider] - Follow up as needed I personally performed the services described in the documentation, reviewed and edited the documentation which was dictated to the scribe in my presence, and it accurately records my words and actions.
== END 2019-06-07 16:43 | disposition home or self-care (01) ==
LOC: ER 13:06
DX: R51 Headache (principal); H66.92 Otitis media, unspecified, left ear; H92.02 Otalgia, left ear; R42 Dizziness and giddiness; R05 Cough; Z88.3 Allergy status to other anti-infective agents; Z91.040 Latex allergy status
CPT/HCPCS: 36415; 85025; 80053; 71046; J0696; 96372; 99283

== ENCOUNTER 2019-10-18 14:33 | Emergency (ER) | payer MEDICAID ==
--- NOTE | 2019-10-18 15:21 | ER Document Report ---
ED Medical Screen (RME) - General Chief Complaint: Back Pain Stated Complaint: FALL/BACK PAIN Time Seen by Provider: 10/18/19 15:14 Primary Care Provider: OSORIO MICHAEL PA-C [Primary Care Provider] - Follow up as needed Mode of Arrival: Ambulatory Information source: Patient Notes: 34-year-old female presented to ED for increasing neck and back pain for the last 4 days. She states she was helping her [id number] move 4 days ago when she fell off of the ramp going into the moving truck. She states she has had multiple back surgeries and now that since she has fallen her back pain and her neuropathy is much worse. She states she had a spinal leak with 1 of her recent back surgeries and now she feels like she is having a spinal headache again. Patient is alert oriented respirations regular nonlabored speaking in full sentences. I have greeted and performed a rapid initial assessment of this patient. A comprehensive ED assessment and evaluation of the patient, analysis of test results and completion of medical decision making process will be conducted by an additional ED providers. TRAVEL OUTSIDE OF THE [place] IN LAST 30 DAYS: No - Related Data Allergies/Adverse Reactions: tramadol [Tramadol] Allergy (Severe, Verified 10/18/19 15:12) ASTHMA SX,HIVES,VOMITING clindamycin HCl [From Cleocin] Allergy (Verified 10/18/19 15:12) clindamycin palmitate HCl [From Cleocin] Allergy (Verified 10/18/19 15:12) clindamycin phosphate [From Cleocin] Allergy (Verified 10/18/19 15:12) ketorolac tromethamine [From Toradol] Allergy (Verified 10/18/19 15:12) Latex, Natural Rubber Allergy (Verified 10/18/19 15:12) Hives Sulfa (Sulfonamide Antibiotics) Allergy (Verified 10/18/19 15:12) sulfamethoxazole [From Bactrim] Allergy (Verified 10/18/19 15:12) trimethoprim [From Bactrim] Allergy (Verified 10/18/19 15:12) latex [Latex] Adverse Reaction (Verified 10/18/19 15:12) Past Medical History - Social History Chew tobacco use (# tins/day): No Frequency of alcohol use: None Drug Abuse: None - Past Medical History Cardiac Medical History: Reports: Hx Hypertension - WITH PREG Pulmonary Medical History: Reports: Hx Asthma - NO CURRENT MEDS/LAST EPISODE WAS 03/19 Endocrine Medical History: Reports: Hx Hypothyroidism Renal/ Medical History: Denies: Hx Peritoneal Dialysis GI Medical History: Reports: Hx Gastroesophageal Reflux Disease, Hx Ulcer, Hx Colonoscopy, Hx Endoscopy Musculoskeltal Medical History: Reports Hx Arthritis, Reports Hx Musculoskeletal Deformity - Degenerative disc disease, Reports Hx Musculoskeletal Trauma - Left arm fracture Psychiatric Medical History: Reports: Hx Depression Traumatic Medical History: Reports: Hx Fractures - Left arm Past Surgical History: Reports: Hx Adenoidectomy, Hx Section - x3, Hx Hysterectomy, Hx Myringotomy - Permanent, Hx Nose Surgery - Septoplasty, Hx Oral Surgery - cleft lip and palate, Hx Orthopedic Surgery - left knee, Microdiscectomy, Lumbar laminectomy, DJD, Hx Tonsillectomy, Hx Tubal Ligation. Denies: Hx Mastectomy, Hx Open Heart Surgery - Immunizations Immunizations up to date: Yes Hx Diphtheria, Pertussis, Tetanus Vaccination: Yes - 2009 Physical Exam - Vital signs Vitals: Temp Pulse Resp BP Pulse Ox 98.4 F 94 16 128/90 H 100 10/18/19 14:45 10/18/19 14:45 10/18/19 14:45 10/18/19 14:45 10/18/19 14:45 Course - Vital Signs Vital signs: Temp Pulse Resp BP Pulse Ox 98.4 F 94 16 128/90 H 100 10/18/19 15:12 10/18/19 14:45 10/18/19 14:45 10/18/19 14:45 10/18/19 14:45 Doctor's Discharge - Discharge Referrals: OSORIO MICHAEL PA-C [Primary Care Provider] - Follow up as needed
--- NOTE | 2019-10-18 16:25 | RADIOLOGY REPORT (SQ) ---
EXAM DESCRIPTION: CERV SP 4 OR 5 VIEWS IMAGES COMPLETED DATE/TIME: 10/18/2019 3:08 pm REASON FOR STUDY: Fall neck pain back pain COMPARISON: None. NUMBER OF VIEWS: Five views. TECHNIQUE: AP, lateral, obliques and odontoid radiographic images acquired of the cervical spine. LIMITATIONS: None. FINDINGS: MINERALIZATION: Normal. ALIGNMENT: Anatomic. VERTEBRAE: Vertebral bodies of normal height. DISCS: No significant osteophytes or sclerosis. Disc height maintained. FORAMINA: No osteophytes or foraminal narrowing. LATERAL AND POSTERIOR ELEMENTS: Facets, lateral masses and spinous processes without significant find ings. HARDWARE: None in the spine. SOFT TISSUES: No masses or calcifications. Lung apices clear. OTHER: No other significant finding. IMPRESSION: NO SIGNIFICANT RADIOGRAPHIC FINDING IN THE CERVICAL SPINE. TECHNICAL DOCUMENTATION: JOB ID: [id number] 2010 [employer]- All Rights Reserved Reading location - IP/workstation name: [email or web address]
--- NOTE | 2019-10-18 16:27 | RADIOLOGY REPORT (SQ) ---
EXAM DESCRIPTION: L SPINE WHOLE IMAGES COMPLETED DATE/TIME: 10/18/2019 3:08 pm REASON FOR STUDY: Fall neck pain back pain COMPARISON: 12/24/2018 NUMBER OF VIEWS: Five views including obliques. TECHNIQUE: AP, lateral, oblique, and sacral radiographic images acquired of the lumbar spine. LIMITATIONS: None. FINDINGS: MINERALIZATION: Normal. SEGMENTATION: Normal. No transitional anatomy. ALIGNMENT: Normal. VERTEBRAE: No acute fracture or loss of vertebral body height. Postsurgical changes consistent with right hemilaminectomy at L4 and L5, stable from prior. No lytic or blastic bone lesion. DISCS: Preserved height. No significant osteophytes or end plate irregularity. POSTERIOR ELEMENTS: Pedicles and facets are intact. No pars defect or posterior arch defects. HARDWARE: None in the spine. PARASPINAL SOFT TISSUES: Normal. PELVIS: Intact as visualized. No fractures or worrisome bone lesions. SI joints intact. OTHER: No other significant finding. IMPRESSION: Postsurgical changes in the lumbar spine. No acute fracture or dislocation. TECHNICAL DOCUMENTATION: JOB ID: [id number] [employer]- All Rights Reserved Reading location - IP/workstation name: [email or web address]
--- NOTE | 2019-10-18 17:05 | ER Document Report ---
ED Neck/Back Problem - General Chief Complaint: Back Pain Stated Complaint: FALL/BACK PAIN Time Seen by Provider: 10/18/19 15:14 Primary Care Provider: OSORIO AGUILAR PA-C [Primary Care Provider] - Follow up as needed Mode of Arrival: Ambulatory Notes: CHIEF COMPLAINT: Low back pain after fall 4 days ago HPI: 34-year-old female presenting to the emergency department complaining of low back pain after a mechanical fall 4 days ago. Patient with history of multiple low back surgeries Ste[place]. Follows with Dr. Aguilar locally for pain management. Out of her pain medications today. States she slipped off the ramp of a [employer] as she was helping her [id number]-[id number]-rtl move into her house 4 days ago landed on her left side. Has been taking her pain medications until they ran out without resolution of her pain. Denies incontinence of urine or bowel. Denies head injury. Denies weakness numbness or tingling in the extremities. ROS: See HPI - all other systems were reviewed and are otherwise negative Constitutional: no fever Eyes: no drainage, no blurred vision ENT: no runny nose, no sore throat Cardiovascular: no chest pain Resp: no SOB, no cough GI: no vomiting, no diarrhea, no abdominal pain : no dysuria Integumentary: no rash Allergy: no hives Musculoskeletal: no extremity pain or swelling, positive back pain Neurological: no numbness/tingling, no weakness, no incontinence of urine or bowel MEDICATIONS: I agree with the patient medications as charted by the RN. ALLERGIES: I agree with the allergies as charted by the RN. PAST MEDICAL HISTORY/PAST SURGICAL HISTORY: Reviewed and agree as charted by RN. SOCIAL HISTORY: Reviewed and agree as charted by RN. FAMILY HISTORY: No significant familial comorbid conditions directly related to patient complaint EXAM: Reviewed vital signs as charted by RN. CONSTITUTIONAL: Alert and oriented and responds appropriately to questions. Well-appearing; well-nourished HEAD: Normocephalic; atraumatic EYES: PERRL; Conjunctivae clear, sclerae non-icteric ENT: normal nose; no rhinorrhea; moist mucous membranes NECK: Supple without meningismus; non-tender directly over the cervical spine ; no cervical lymphadenopathy, no masses CARD: RRR; no murmurs, no clicks, no rubs, no gallops; symmetric distal pulses RESP: Normal chest excursion without splinting or tachypnea; breath sounds clear and equal bilaterally; no wheezes, no rhonchi, no rales, pulse oximetry ABD/GI: Normal bowel sounds; non-distended; soft, non-tender, no rebound, no guarding; no palpable organomegaly or masses. BACK: The back appears normal and is mildly tender to palpation in the low lumbar region of the back, there is no CVA tenderness EXT: Normal ROM in all joints; non-tender to palpation; no cyanosis, no effusions, no edema SKIN: Normal color for age and race; warm; dry; good turgor; no acute lesions noted NEURO: Moves all extremities equally; Motor and sensory function intact . Strength equal 5/5 bilateral lower extremities. Sensation intact and equal bilateral lower extremities. Straight leg raise is negative. No saddle anesthesia on exam. DTRs 2+ intact and equal bilateral lower extremities. PSYCH: The patient's mood and manner are appropriate. Grooming and personal hygiene are appropriate. MDM: 34-year-old female with chronic back pain issues follows with Dr. Aguilar in [facility] reviewed on the [place] narcotics database has not been to multiple providers but has filled prescriptions every few weeks for hydrocodone. Patient drove herself here today. She fell 4 days ago, x-rays ordered via triage process showed no new fracture in the thoracic or lumbar spine her pain seems to be across the lower lumbar spine on exam. She is neurologically intact, low suspicion for cauda equina. Patient will be given a short prescription for pain today and instructed to follow-up with her pain management doctor in [facility] for further management TRAVEL OUTSIDE OF THE [place] IN LAST 30 DAYS: No - Related Data Allergies/Adverse Reactions: tramadol [Tramadol] Allergy (Severe, Verified 10/18/19 15:12) ASTHMA SX,HIVES,VOMITING clindamycin HCl [From Cleocin] Allergy (Verified 10/18/19 15:12) clindamycin palmitate HCl [From Cleocin] Allergy (Verified 10/18/19 15:12) clindamycin phosphate [From Cleocin] Allergy (Verified 10/18/19 15:12) ketorolac tromethamine [From Toradol] Allergy (Verified 10/18/19 15:12) Latex, Natural Rubber Allergy (Verified 10/18/19 15:12) Hives Sulfa (Sulfonamide Antibiotics) Allergy (Verified 10/18/19 15:12) sulfamethoxazole [From Bactrim] Allergy (Verified 10/18/19 15:12) trimethoprim [From Bactrim] Allergy (Verified 10/18/19 15:12) latex [Latex] Adverse Reaction (Verified 10/18/19 15:12) Past Medical History - General Information source: Patient - Social History Smoking Status: Current Some Day Smoker Chew tobacco use (# tins/day): No Frequency of alcohol use: None Drug Abuse: None Family History: Reviewed & Not Pertinent, CVA, Malignancy Patient has homicidal ideation: No - Past Medical History Cardiac Medical History: Reports: Hx Hypertension - WITH PREG Pulmonary Medical History: Reports: Hx Asthma - NO CURRENT MEDS/LAST EPISODE WAS 03/19 Endocrine Medical History: Reports: Hx Hypothyroidism Renal/ Medical History: Denies: Hx Peritoneal Dialysis GI Medical History: Reports: Hx Gastroesophageal Reflux Disease, Hx Ulcer, Hx Colonoscopy, Hx Endoscopy Musculoskeletal Medical History: Reports Hx Arthritis, Reports Hx Musculoskeletal Deformity - Degenerative disc disease, Reports Hx Musculoskeleta l Trauma - Left arm fracture Psychiatric Medical History: Reports: Hx Depression Traumatic Medical History: Reports: Hx Fractures - Left arm Past Surgical History: Reports: Hx Adenoidectomy, Hx Section - x3, Hx Hysterectomy, Hx Myringotomy - Permanent, Hx Nose Surgery - Septoplasty, Hx Oral Surgery - cleft lip and palate, Hx Orthopedic Surgery - left knee, Microdiscectomy, Lumbar laminectomy, DJD, Hx Tonsillectomy, Hx Tubal Ligation. Denies: Hx Mastectomy, Hx Open Heart Surgery - Immunizations Immunizations up to date: Yes Hx Diphtheria, Pertussis, Tetanus Vaccination: Yes - 2009 Physical Exam - Vital signs Vitals: Temp Pulse Resp BP Pulse Ox 98.4 F 94 16 128/90 H 100 10/18/19 14:45 10/18/19 14:45 10/18/19 14:45 10/18/19 14:45 10/18/19 14:45 Course - Vital Signs Vital signs: Temp Pulse Resp BP Pulse Ox 98.4 F 94 16 128/90 H 100 10/18/19 15:12 10/18/19 14:45 10/18/19 14:45 10/18/19 14:45 10/18/19 14:45 Discharge - Discharge Clinical Impression: Acute exacerbation of chronic low back pain Fall Qualifiers: Encounter type: initial encounter Qualified Code(s): W19.XXXA - Unspecified fall, initial encounter Condition: Stable Disposition: HOME, SELF-CARE Additional Instructions: Pain medications as prescribed. No driving on narcotics. Follow-up with your primary care provider for further management of your back pain including narcotic management. Return for incontinence of urine or bowel or weakness in the extremities Prescriptions: Hydrocodone/Acetaminophen [Barclay 5-325 mg Tablet] 1 tab PO Q4 PRN #15 tablet PRN Reason: Referrals: OSORIO AGUILAR PA-C [Primary Care Provider] - Follow up as needed
[2019-10-18 17:21] VITALS: BP 126/99
== END 2019-10-18 17:21 | disposition home or self-care (01) ==
LOC: ER 14:33
DX: M54.5 Low back pain (principal); W17.89XA Other fall from one level to another, initial encounter; Y93.E6 Activity, residential relocation; Y92.009 Unspecified place in unspecified non-institutional (private) residence as the place of occurrence of the external cause; G89.29 Other chronic pain; J45.909 Unspecified asthma, uncomplicated; F17.200 Nicotine dependence, unspecified, uncomplicated; Z98.890 Other specified postprocedural states; Z88.6 Allergy status to analgesic agent; Z88.1 Allergy status to other antibiotic agents; Z91.041 Radiographic dye allergy status; Z88.2 Allergy status to sulfonamides
CPT/HCPCS: 72050; 72110; 99283

== ENCOUNTER 2020-02-01 16:11 | Emergency (ER) | payer MEDICAID ==
[2020-02-01] MEDS ORDERED: GABAPENTIN 300 MG CAPSULE PO ONE (17:01)
--- NOTE | 2020-02-01 17:04 | ER Document Report ---
ED Medical Screen (RME) - General Chief Complaint: Back Pain Stated Complaint: BACK PAIN Time Seen by Provider: 02/01/20 16:53 Primary Care Provider: OSORIO MICHAEL PA-C [Primary Care Provider] - Follow up as needed TRAVEL OUTSIDE OF THE [place] IN LAST 30 DAYS: No - HPI Notes: 02/01/20 17:03 34-year-old female to the emergency department with complaints of intractable lower back pain and neck pain for the past several days. She has been seen at [facility] for her low back pain and neck pain. She has MRIs ordered for February 02 but her pain is been so uncontrolled that she cannot stand it. She states she has numbness and tingling into her right leg. She states it hurts when she walks. She states she cannot get comfortable. She is currently taking gabapentin 300 mg 3 times daily and also taking [place]. She states she is been having to dose herself with NyQuil to sleep at night. She called her primary care office today as well as [place] and they told her to come to the emergency department for emergent MRI. No fevers or chills, no IV drug use, no bladder or bowel incontinence I performed a brief medical screening exam on the patient determined that the patient needs further evaluation and management by main side provider. I have placed initial orders to help expedite care. - Related Data Allergies/Adverse Reactions: tramadol [Tramadol] Allergy (Severe, Verified 02/01/20 16:53) ASTHMA SX,HIVES,VOMITING clindamycin HCl [From Cleocin] Allergy (Verified 02/01/20 16:53) clindamycin palmitate HCl [From Cleocin] Allergy (Verified 02/01/20 16:53) clindamycin phosphate [From Cleocin] Allergy (Verified 02/01/20 16:53) ketorolac tromethamine [From Toradol] Allergy (Verified 02/01/20 16:53) Latex, Natural Rubber Allergy (Verified 02/01/20 16:53) Hives Sulfa (Sulfonamide Antibiotics) Allergy (Verified 02/01/20 16:53) sulfamethoxazole [From Bactrim] Allergy (Verified 02/01/20 16:53) trimethoprim [From Bactrim] Allergy (Verified 02/01/20 16:53) latex [Latex] Adverse Reaction (Verified 09/28/20 16:53) Home Medications: gabapentin. lyrica. hydrocodone Past Medical History - Social History Chew tobacco use (# tins/day): No Frequency of alcohol use: None Drug Abuse: None - Past Medical History Cardiac Medical History: Reports: Hx Hypertension - WITH PREG Pulmonary Medical History: Reports: Hx Asthma - NO CURRENT MEDS/LAST EPISODE WAS 03/19 Endocrine Medical History: Reports: Hx Hypothyroidism Renal/ Medical History: Denies: Hx Peritoneal Dialysis GI Medical History: Reports: Hx Gastroesophageal Reflux Disease, Hx Ulcer, Hx Colonoscopy, Hx Endoscopy Musculoskeltal Medical History: Reports Hx Arthritis, Reports Hx Musculoskeletal Deformity - Degenerative disc disease, Reports Hx Musculoskeletal Trauma - Left arm fracture Psychiatric Medical History: Reports: Hx Depression Traumatic Medical History: Reports: Hx Fractures - Left arm Past Surgical History: Reports: Hx Adenoidectomy, Hx Section - x3, Hx Hysterectomy, Hx Myringotomy - Permanent, Hx Nose Surgery - Septoplasty, Hx Oral Surgery - cleft lip and palate, Hx Orthopedic Surgery - left knee, Microdiscectomy, Lumbar laminectomy, DJD, Hx Tonsillectomy, Hx Tubal Ligation. Denies: Hx Mastectomy, Hx Open Heart Surgery - Immunizations Immunizations up to date: Yes Hx Diphtheria, Pertussis, Tetanus Vaccination: Yes - 2009 Physical Exam - Vital signs Vitals: Temp Pulse Resp BP Pulse Ox 98.2 F 75 20 129/87 H 98 02/01/20 16:19 02/01/20 16:19 02/01/20 16:19 02/01/20 16:19 02/01/20 16:19 Course - Vital Signs Vital signs: Temp Pulse Resp BP Pulse Ox 98.2 F 75 20 129/87 H 98 02/01/20 16:19 02/01/20 16:19 02/01/20 16:19 02/01/20 16:19 02/01/20 16:19 Doctor's Discharge - Discharge Referrals: OSORIO MICHAEL PA-C [Primary Care Provider] - Follow up as needed
[2020-02-01 17:53] LABS: ABSOLUTE EOSINOPHILS # (AUTO) 0.1 10^3/uL (0.0-0.6); ABSOLUTE LYMPHOCYTES (AUTO) 2.3 10^3/uL (0.5-4.7); ABSOLUTE MONOCYTES (AUTO) 0.6 10^3/uL (0.1-1.4); ABSOLUTE NEUT (AUTO) 7.6 10^3/uL (1.7-8.2); BASOPHILS % (AUTO) 0.2 % (0-2); EOSINOPHILS % (AUTO) 0.6 % (0-6); HEMATOCRIT 44.9 % (36.0-47.0); HEMOGLOBIN 16.1 g/dL (12.0-15.5); LYMPHOCYTES % (AUTO) 21.6 % (13-45); MEAN CORPUSCULAR HGB CONC 35.8 g/dL (32.0-36.0); MEAN CORPUSCULAR VOLUME 89 fl (80-97); MONOCYTES % (AUTO) 5.5 % (3-13); PLATELET COUNT 368 10^3/uL (150-450); RED BLOOD COUNT 5.02 10^6/uL (3.72-5.28); RED CELL DISTRIBUTION WIDTH 12.2 % (11.5-14.0); SEGMENTED NEUTROPHILS % (AUTO) 72.1 % (42-78); TOTAL CELLS COUNTED % (AUTO) 100 %; WHITE BLOOD COUNT 10.5 10^3/uL (4.0-10.5)
[2020-02-01] MEDS ORDERED: OXYCODONE-ACETAMINOPHEN 5-325 MG TABLET PO ONE ×2 (18:13→22:34)
[2020-02-01 18:16] LABS: ALBUMIN 5.1 g/dL (3.5-5.0); ALKALINE PHOSPHATASE 65 U/L (38-126); ANION GAP 11 (5-19); ASPARTATE AMINO TRANSFERASE 22 U/L (14-36); BILIRUBIN,DIRECT 0.2 mg/dL (0.0-0.4); BILIRUBIN,TOTAL 0.9 mg/dL (0.2-1.3); BLOOD UREA NITROGEN 11 mg/dL (7-20); CALCIUM 10.2 mg/dL (8.4-10.2); CARBON DIOXIDE 24 mmol/L (22-30); CHLORIDE 104 mmol/L (98-107); GLUCOSE 97 mg/dL (75-110); TOTAL PROTEIN 8.1 g/dL (6.3-8.2)
--- NOTE | 2020-02-01 20:04 | ER Document Report ---
ED Neck/Back Problem - General Chief Complaint: Back Pain Stated Complaint: BACK PAIN Time Seen by Provider: 02/01/20 16:53 Primary Care Provider: OSORIO MICHAEL PA-C [Primary Care Provider] - Follow up in 3-5 days TRAVEL OUTSIDE OF THE [place] IN LAST 30 DAYS: No - HPI Notes: 84-year-old female to the emergency department with complaints of progressively worsening back pain with radiation down the back of her right leg with numbness and tingling to the leg that has not been well controlled with [place] and gabapentin. She also complains of neck pain. She states that she has been seeing a bioinformatics specialist at [facility]. She has had a significant past medical history of prior back surgeries from herniated disks in her lumbar spine. She has had 2 prior surgeries and in the past year this back pain has gotten significantly worse. However over the past week her pain has gotten substantially more unbearable. She denies any bladder or bowel incontinence. She denies any saddle paresthesia. She denies any fevers or chills. She is not an IV drug abuser. She states she is supposed to have an MRI with [facility] in 2 days but she is so uncomfortable with that her primary care physician has sent her to the emergency department for sooner MRI. She states that she cannot get comfortable if she tries to lays down or sits. She can only have minimal reduction of her pain when she is standing. - Related Data Allergies/Adverse Reactions: tramadol [Tramadol] Allergy (Severe, Verified 02/01/20 16:53) ASTHMA SX,HIVES,VOMITING clindamycin HCl [From Cleocin] Allergy (Verified 02/01/20 16:53) clindamycin palmitate HCl [From Cleocin] Allergy (Verified 02/01/20 16:53) clindamycin phosphate [From Cleocin] Allergy (Verified 02/01/20 16:53) ketorolac tromethamine [From Toradol] Allergy (Verified 02/01/20 16:53) Latex, Natural Rubber Allergy (Verified 02/01/20 16:53) Hives Sulfa (Sulfonamide Antibiotics) Allergy (Verified 02/01/20 16:53) sulfamethoxazole [From Bactrim] Allergy (Verified 02/01/20 16:53) trimethoprim [From Bactrim] Allergy (Verified 02/01/20 16:53) latex [Latex] Adverse Reaction (Verified 02/01/20 16:53) Home Medications: gabapentin. lyrica. hydrocodone Past Medical History - General Information source: Patient - Social History Smoking Status: Former Smoker Chew tobacco use (# tins/day): No Frequency of alcohol use: None Drug Abuse: None Family History: Reviewed & Not Pertinent, CVA, Malignancy Patient has homicidal ideation: No - Past Medical History Cardiac Medical History: Reports: Hx Hypertension - WITH PREG Pulmonary Medical History: Reports: Hx Asthma - NO CURRENT MEDS/LAST EPISODE WAS 03/19 Endocrine Medical History: Reports: Hx Hypothyroidism Renal/ Medical History: Denies: Hx Peritoneal Dialysis GI Medical History: Reports: Hx Gastroesophageal Reflux Disease, Hx Ulcer, Hx Colonoscopy, Hx Endoscopy Musculoskeletal Medical History: Reports Hx Arthritis, Reports Hx Musculoskeletal Deformity - Degenerative disc disease, Reports Hx Muscu loskeletal Trauma - Left arm fracture Psychiatric Medical History: Reports: Hx Depression Traumatic Medical History: Reports: Hx Fractures - Left arm Past Surgical History: Reports: Hx Adenoidectomy, Hx Section - x3, Hx Hysterectomy, Hx Myringotomy - Permanent, Hx Nose Surgery - Septoplasty, Hx Oral Surgery - cleft lip and palate, Hx Orthopedic Surgery - left knee, Microdiscectomy, Lumbar laminectomy, DJD, Hx Tonsillectomy, Hx Tubal Ligation. Denies: Hx Mastectomy, Hx Open Heart Surgery - Immunizations Immunizations up to date: Yes Hx Diphtheria, Pertussis, Tetanus Vaccination: Yes - 2009 Review of Systems - Review of Systems Constitutional: denies: Chills, Fever EENT: No symptoms reported Cardiovascular: denies: Chest pain, Palpitations, Dyspnea, Syncope, Dizziness, Lightheaded Respiratory: denies: Cough, Short of breath Gastrointestinal: denies: Abdominal pain, Diarrhea, Nausea, Vomiting Female Genitourinary: denies: , Heavy/abnormal periods, Vaginal discharge Musculoskeletal: See HPI, Back pain, Neck pain Skin: No symptoms reported Hematologic/Lymphatic: No symptoms reported Neurological/Psychological: No symptoms reported -: Yes All other systems reviewed and negative Physical Exam - Vital signs Vitals: Temp Pulse Resp BP Pulse Ox 98.2 F 75 20 129/87 H 98 02/01/20 16:19 02/01/20 16:19 02/01/20 16:19 02/01/20 16:19 02/01/20 16:19 Interpretation: Normal - General General appearance: Appears well, Alert In distress: Moderate Notes: Moderate pain distress. Patient has significantly worsening pain when she sits down - HEENT Head: Normocephalic, Atraumatic Eyes: Normal Pupils: PERRL - Respiratory Respiratory status: No respiratory distress Chest status: Nontender Breath sounds: Normal. No: Rales, Rhonchi, Wheezing Chest palpation: Normal - Cardiovascular Rhythm: Regular Heart sounds: Normal auscultation Murmur: No - Abdominal Inspection: Normal Distension: No distension Bowel sounds: Normal Tenderness: Nontender. No: McBurney's point, Mon's sign, Guarding Organomegaly: No organomegaly - Back Notes: There is tenderness to palpation over the midline cervical spine as well as the midline lumbar spine. There is no step-off or deformity. There is no tenderness to palpation to the midline thoracic spine. Patient has positive right straight leg raise. She also reports decreased sensation in the lateral a spect of her right lower calf and foot. She is mildly decreased in her strength in the right lower extremity with a 4 out of 5 likely due mainly to pain. Bilateral upper extremities have full range of motion against resistance with 5 out of 5 strength. Pulses are intact and equal - Neurological Neuro grossly intact: Yes Cognition: Normal Orientation: AAOx4 Nathan Coma Scale Eye Opening: Spontaneous Nathan Coma Scale Verbal: Oriented Nathan Coma Scale Motor: Obeys Commands [place] Coma Scale Total: 15 Speech: Normal Cranial nerves: Normal Cerebellar coordination: Normal. 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 No: Pronator drift Sensory: Normal - Psychological Associated symptoms: Normal affect, Normal mood - Skin Skin Temperature: Warm Skin Moisture: Dry Skin Color: Normal Course - Re-evaluation Re-evalutation: Patient with intractable back pain who is scheduled for MRI in 2 days presenting to the ER with pain that not well controlled with [place] and gabapentin at home. She is not been able to get comfortable for almost a week. We will go ahead and order the MRIs to make sure that she does not have any emergent back etiology. Will dose with the Percocet and gabapentin here. Progress: Patient states the combination of the Percocet and gabapentin has helped her. We are pending MRI. Impression: Noted MRI readings of back and cervical spine. Cervical spine with multiple cystic features. Lumbar spine with notable disc herniation. No spinal abscess, no cauda equina. Plan will be to send home with a small amount of Percocet and then will increase her gabapentin. She is currently taking 300 mg 3 times a day. We will increase her dose at night to start for 5 days to 600 mg and then she will increase her morning dose to 600 mg thereafter. She states prior to her last surgery she was up to 1200 mg of gabapentin 3 times daily. She has been urged to call her bioinformatics specialist without fail. She understands that no more than 10 tablets of Percocet can be written for her. She also understands that she will need to get in with her primary care who is basically been doing her pain management for her while she is trying to get follow-up with her bioinformatics specialist. She is to return if any bladder or bowel incontinence, saddle paresthesia, inability to urinate, fevers, urinary retention. She agrees with the plan. - Vital Signs Vital signs: Temp Pulse Resp BP Pulse Ox 98.1 F 70 16 149/87 H 97 02/01/20 22:42 02/01/20 22:42 02/01/20 22:42 02/01/20 22:42 02/01/20 22:42 - Laboratory Result Diagrams: 02/01/20 17:35 02/01/20 17:35 Laboratory results interpreted by me: 02/01/20 02/01/20 17:35 17:35 Hgb 16.1 H Albumin 5.1 H - Diagnostic Test Radiology reviewed: Image reviewed, Reports reviewed Discharge - Discharge Clinical Impression: Posterior herniation of lumbar disc, Cervical pain (neck) Sciatica Qualifiers: Laterality: right Qualified Code(s): M54.31 - Sciatica, right side Low back pain Qualifiers: Chronicity: unspecified Back pain laterality: midline Sciatica presence: with sciatica Sciatica laterality: sciatica of right side Qualified Code(s): M54.41 - Lumbago with sciatica, right side Disposition: HOME, SELF-CARE Instructions: Herniated Disc ([facility]) Additional Instructions: Take medications as prescribed. Follow-up with [facility] bioinformatics specialist tomorrow without fail. Increase your gabapentin to morning dose of 300, midday dose of 300, nighttime dose of 600. Return if any worsening symptoms such as fever, bladder or bowel incontinence, numbness and tingling around rectum and vagina. Prescriptions: Oxycodone HCl/Acetaminophen [Percocet 5-325 mg Tablet] 1 tab PO Q4H PRN #15 tablet PRN Reason: Referrals: OSORIO MICHAEL PA-C [Primary Care Provider] - Follow up in 3-5 days
--- NOTE | 2020-02-01 22:11 | RADIOLOGY REPORT (SQ) ---
EXAM DESCRIPTION: MR CERVICAL SPINE WITHOUT IV CONTRAST COMPLETED DATE/TME: 02/01/2020 17:02 CLINICAL HISTORY: 34 years, Female, neck pain EXAM DESCRIPTION: CLINICAL HISTORY: neck pain COMPARISON: None Available. TECHNIQUE: Multiplanar multisequence MR imaging of the cervical spine without the administration of intravenous contrast. FINDINGS: There is mild reversal of the normal lordotic curvature. There is a 2 mm cystic lesion in the left C5-6 neural foramen, a five mm right and three mm left cystic lesion at C6-7 in the neural foramina, and at C7-T1 a 3 mm right and 5 mm left cystic lesion in the neural foramina. One or more of these could be symptomatic. Vertebral body height is preserved without evidence of acute fracture or subluxation. There is no disc herniation or canal stenosis. Spinal cord is of normal contour and signal. Prevertebral soft tissues are within normal limits. The neural foramina are patent. IMPRESSION: There are multiple cystic lesions in the neural foramina as described and although other possibilities exist these are most suggestive of Tarlov cysts. No other significant abnormality.
--- NOTE | 2020-02-01 22:25 | RADIOLOGY REPORT (SQ) ---
EXAM DESCRIPTION: MR LUMBAR SPINE WITHOUT THEN WITH IV CONTRAST COMPLETED DATE/TME: 02/01/2020 17:01 CLINICAL HISTORY: 34 years, Female, intractable back pain, radiculopathy, prior sx EXAM DESCRIPTION: CLINICAL HISTORY: intractable back pain, radiculopathy, prior sx COMPARISON: 06/25/2015. TECHNIQUE: Multiplanar multisequence MR imaging of the lumbar spine was performed without and with IV contrast FINDINGS: There is a large posterior disc protrusion to right of midline at L4-5, increased since the prior exam, causing severe right lateral recess narrowing, and a central component of the disc herniation causes mild central canal narrowing. There is increased L4-5 disc height loss. There is mild L5-S1 disc height loss. There is desiccation of the L3-4 and L4-5 and L5-S1 discs. There is moderate right and mild left L5-S1 neural foraminal narrowing. There is unchanged grade 1 retrolisthesis of L5 on S1. Patient motion limits detail. There is desiccation of the L1-2 disc. Postsurgical changes are again seen. No definite focal pathologic enhancement. Motion particularly limits axial sequences. No other acute abnormality. IMPRESSION: Postsurgical changes with worsened disc herniation or less likely nonenhancing granulation tissue and stenosis at L4-5 as above. No focal pathologic enhancement. See additional findings above.
[2020-02-01 22:44] VITALS: BP 149/87
== END 2020-02-01 22:36 | disposition home or self-care (01) ==
LOC: ER 16:11
DX: M51.16 Intervertebral disc disorders with radiculopathy, lumbar region (principal); M54.2 Cervicalgia; J45.909 Unspecified asthma, uncomplicated; Z79.899 Other long term (current) drug therapy; Z79.891 Long term (current) use of opiate analgesic; Z98.890 Other specified postprocedural states; Z88.6 Allergy status to analgesic agent; Z88.1 Allergy status to other antibiotic agents; Z88.8 Allergy status to other drugs, medicaments and biological substances; Z91.041 Radiographic dye allergy status; Z88.2 Allergy status to sulfonamides
CPT/HCPCS: 99284; 36415; 84703; 85025; 80053; 72158; 72141; A9576; J3490

== ENCOUNTER 2020-03-05 16:26 | Emergency (ER) | payer MEDICAID ==
--- NOTE | 2020-03-05 17:02 | ER Document Report ---
ED Medical Screen (RME) - General Chief Complaint: Back Pain Stated Complaint: BACK/LEG PAIN Time Seen by Provider: 03/05/20 16:38 Primary Care Provider: OSORIO MICHAEL PA-C [Primary Care Provider] - Follow up as needed Mode of Arrival: Ambulatory Information source: Patient Notes: 34-year-old female presented to ED for complaint of chronic back pain. She states she is due for spinal fusion on March 17. She states today her pain is uncontrollable. She states she states she takes gabapentin 300 mg 2 every morning 1 in the afternoon and 2 in the evening and she takes oxycodone every 6 hours for pain. She states she also takes multivitamins and other medications. She states she needs something more for her pain. I explained to her that we do not treat chronic pain but I could give her 1 extra narcotic today she says if I give her a narcotic today what is going to happen tomorrow she needs something to last until she can see her doctor on Saturday. I offered her Lidoderm patch. She states she needs more pain medicine she would be here if she could control this by herself. I offered her Toradol and then she stated did not read her chart she is allergic to Toradol. It is not showing up when you first open the chart that she is allergic to Toradol but I did go in and she is allergic to Toradol. She then stated she wanted to see a real doctor because I was being judgmental because I was not going to write her a prescription for more pain medicine than what she is already getting. I explained to her the policy for chronic pain management and that I was willing to give her an extra dose of medication. She states she just wants to see a another doctor she does not want to see me. I did go and consult Dr. Kaufman who is coming and talking to the patient. I have greeted and performed a rapid initial assessment of this patient. A comprehensive ED assessment and evaluation of the patient, analysis of test results and completion of medical decision making process will be conducted by an additional ED providers. TRAVEL OUTSIDE OF THE [place] IN LAST 30 DAYS: No - Related Data Allergies/Adverse Reactions: tramadol [Tramadol] Allergy (Severe, Verified 02/01/20 16:53) ASTHMA SX,HIVES,VOMITING clindamycin HCl [From Cleocin] Allergy (Verified 02/01/20 16:53) clindamycin palmitate HCl [From Cleocin] Allergy (Verified 02/01/20 16:53) clindamycin phosphate [From Cleocin] Allergy (Verified 02/01/20 16:53) ketorolac tromethamine [From Toradol] Allergy (Verified 02/01/20 16:53) Latex, Natural Rubber Allergy (Verified 02/01/20 16:53) Hives Sulfa (Sulfonamide Antibiotics) Allergy (Verified 02/01/20 16:53) sulfamethoxazole [From Bactrim] Allergy (Verified 02/01/20 16:53) trimethoprim [From Bactrim] Allergy (Verified 02/01/20 16:53) latex [Latex] Adverse Reaction (Verified 02/01/20 16:53) Past Medical History - Past Medical History Cardiac Medical History: Reports: Hx Hypertension - WITH PREG Pulmonary Medical History: Reports: Hx Asthma - NO CURRENT MEDS/LAST EPISODE WAS 03/19 Endocrine Medical History: Reports: Hx Hypothyroidism Renal/ Medical History: Denies: Hx Peritoneal Dialysis GI Medical History: Reports: Hx Gastroesophageal Reflux Disease, Hx Ulcer, Hx Colonoscopy, Hx Endoscopy Musculoskeltal Medical History: Reports Hx Arthritis, Reports Hx Musculoskeletal Deformity - Degenerative disc disease, Reports Hx Musculoskeletal Trauma - Left arm fracture Psychiatric Medical History: Reports: Hx Depression Traumatic Medical History: Reports: Hx Fractures - Left arm Past Surgical History: Reports: Hx Adenoidectomy, Hx Section - x3, Hx Hysterectomy, Hx Myringotomy - Permanent, Hx Nose Surgery - Septoplasty, Hx Oral Surgery - cleft lip and palate, Hx Orthopedic Surgery - left knee, Microdiscectomy, Lumbar laminectomy, DJD, Hx Tonsillectomy, Hx Tubal Ligation. Denies: Hx Mastectomy, Hx Open Heart Surgery - Immunizations Immunizations up to date: Yes Hx Diphtheria, Pertussis, Tetanus Vaccination: Yes - 2009 Physical Exam - Vital signs Vitals: Temp Pulse Resp BP Pulse Ox 98.6 F 85 18 113/60 100 03/05/20 16:34 03/05/20 16:34 03/05/20 16:34 03/05/20 16:34 03/05/20 16:34 Course - Vital Signs Vital signs: Temp Pulse Resp BP Pulse Ox 98.6 F 85 18 113/60 100 03/05/20 16:34 03/05/20 16:34 03/05/20 16:34 03/05/20 16:34 03/05/20 16:34 Doctor's Discharge - Discharge Referrals: OSORIO MICHAEL PA-C [Primary Care Provider] - Follow up as needed
--- NOTE | 2020-03-05 17:04 | ER Document Report ---
ED General Pain - General Chief Complaint: Back Pain Stated Complaint: BACK/LEG PAIN Time Seen by Provider: 03/05/20 16:38 Primary Care Provider: OSORIO MICHAEL PA-C [PHYSICIAN ENVIRONMENTAL MONITORING SPECIALIST] - Follow up as needed Mode of Arrival: Ambulatory Information source: Patient Notes: MY NOTES 34-year-old female who was very histrionic and tearful and complaining that LOG SCALER Liliana was judgmental about this patient who request something more for pain. She has a history of status post 2 back surgeries and is scheduled for a surgery to her low back. 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 Liliana offered her Toradol and some narcotic pills but both she and I advised the patient this is a pain management case at this time. We will write for some IM shots only at this time. She is to continue her current medicines. We also advised more narcotics will just place her under more problems for receptor problems as far as respirations and may not actually help with her pain. She is to follow-up with her doctor on Saturday and she agrees to this. Patient was tearful and histrionic. Liliana reports she was taking pictures on her cell phone out at triage. TRAVEL OUTSIDE OF THE [place] IN LAST 30 DAYS: No - HPI Onset: This morning Onset/Duration: Sudden, Persistent Quality of pain: Achy Severity: Severe Pain Level: 5 Context: Chronic problem Typical of prior episodes of painful crisis: No - Related Data Allergies/Adverse Reactions: tramadol [Tramadol] Allergy (Severe, Verified 02/01/20 16:53) ASTHMA SX,HIVES,VOMITING clindamycin HCl [From Cleocin] Allergy (Verified 02/01/20 16:53) clindamycin palmitate HCl [From Cleocin] Allergy (Verified 02/01/20 16:53) clindamycin phosphate [From Cleocin] Allergy (Verified 02/01/20 16:53) ketorolac tromethamine [From Toradol] Allergy (Verified 02/01/20 16:53) Latex, Natural Rubber Allergy (Verified 02/01/20 16:53) Hives Sulfa (Sulfonamide Antibiotics) Allergy (Verified 02/01/20 16:53) sulfamethoxazole [From Bactrim] Allergy (Verified 02/01/20 16:53) trimethoprim [From Bactrim] Allergy (Verified 02/01/20 16:53) latex [Latex] Adverse Reaction (Verified 02/01/20 16:53) Past Medical History - General Information source: Patient - Social History Smoking Status: Unknown if Ever Smoked Chew tobacco use (# tins/day): No Smoking Education Provided: No Frequency of alcohol use: None Drug Abuse: None Lives with: Family Family History: Reviewed & Not Pertinent, CVA, Malignancy Patient has suicidal ideation: No Patient has homicidal ideation: No - Past Medical History Cardiac Medical History: Reports: Hx Hypertension - WITH PREG Pulmonary Medical History: Reports: Hx Asthma - NO CURRENT MEDS/LAST EPISODE WAS 03/19 Endocrine Medical History: Reports: Hx Hypothyroidism Renal/ Medical History: Denies: Hx Peritoneal Dialysis GI Medical History: Reports: Hx Gastroesophageal Reflux Disease, Hx Ulcer, Hx Colonoscopy, Hx Endoscopy Musculoskeletal Medical History: Reports Hx Arthritis, Reports Hx Musculoskeletal Deformity - Degenerative disc disease, Reports Hx Musculoskeletal Trauma - Left arm fracture Psychiatric Medical History: Reports: Hx Depression Traumatic Medical History: Reports: Hx Fractures - Left arm Past Surgical History: Reports: Hx Adenoidectomy, Hx Section - x3, Hx Hysterectomy, Hx Myringotomy - Permanent, Hx Nose Surgery - Septoplasty, Hx Oral Surgery - cleft lip and palate, Hx Orthopedic Surgery - left knee, Microdiscectomy, Lumbar laminectomy, DJD, Hx Tonsillectomy, Hx Tubal Ligation. Denies: Hx Mastectomy, Hx Open Heart Surgery - Immunizations Immunizations up to date: Yes Hx Diphtheria, Pertussis, Tetanus Vaccination: Yes - 2009 Review of Systems - Review of Systems Constitutional: No symptoms reported EENT: No symptoms reported Cardiovascular: No symptoms reported Respiratory: No symptoms reported Gastrointestinal: No symptoms reported Genitourinary: No symptoms reported Female Genitourinary: No symptoms reported Musculoskeletal: See HPI, Back pain Skin: No symptoms reported Hematologic/Lymphatic: No symptoms reported Neurological/Psychological: No symptoms reported, Other - Patient reports she has numbness in her right lower extremity but is standing onto legs without problem and with no gait abnormality whatsoever. Physical Exam - Vital signs Vitals: Temp Pulse Resp BP Pulse Ox 98.6 F 85 18 113/60 100 03/05/20 16:34 03/05/20 16:34 03/05/20 16:34 03/05/20 16:34 03/05/20 16:34 Interpretation: Normal - General General appearance: Appears well, Alert - HEENT Head: Normocephalic, Atraumatic Eyes: Normal Pupils: PERRL - Respiratory Respiratory status: No respiratory distress Chest status: Nontender Breath sounds: Normal Chest palpation: Normal - Cardiovascular Rhythm: Regular Heart sounds: Normal auscultation Murmur: No - Abdominal Inspection: Normal Distension: No distension Bowel sounds: Normal Tenderness: Nontender Organomegaly: No organomegaly - Rectal Hemorrhoids: Other - deferred - Genitourinary Bimanuel exam: Other - deferred - Back Back: Normal, Nontender - Extremities General upper extremity: Normal inspection, Nontender, Normal color, Normal ROM, Normal temperature General lower extremity: Tender - Right SI tender on palpation with numbness of right lead subjectively. Patient's gait within normal limits. Patient reports she has pain from her right SI down her gluteal and hamstring area to her knee. Flexion of same evidently induces more pain., Normal color, Normal ROM, Normal temperature, Normal weight bearing. No: Malathi's sign - Neurological Neuro grossly intact: Yes Cognition: Normal Orientation: AAOx4 Nathan Coma Scale Eye Opening: Spontaneous Nathan Coma Scale Verbal: Oriented Nathan Coma Scale Motor: Obeys Commands Nathan Coma Scale Total: 15 Speech: Normal Motor strength normal: LUE, RUE, LLE, RLE Sensory: Normal - Psychological Associated symptoms: Normal affect, Normal mood - Skin Skin Temperature: Warm Skin Moisture: Dry Skin Color: Normal Course - Vital Signs Vital signs: Temp Pulse Resp BP Pulse Ox 98.6 F 85 18 113/60 100 03/05/20 16:34 03/05/20 16:34 03/05/20 16:34 03/05/20 16:34 03/05/20 16:34 Discharge - Discharge Clinical Impression: Pain self-management deficit, Sciatic leg pain Back pain Qualifiers: Back pain location: low back pain Chronicity: chronic Back pain laterality: right Sciatica presence: with sciatica Sciatica laterality: sciatica of right side Qualified Code(s): M54.41 - Lumbago with sciatica, right side; G89.29 - Other chronic pain Condition: Stable Disposition: HOME, SELF-CARE Additional Instructions: Follow-up with your doctor on Saturday return to ER as needed avoid bending l ifting or twisting until seen by your doctor on Saturday. Take medicines as directed. May take Parafon forte with your medication in order to help with back pain. Take this twice a day. Prescriptions: Chlorzoxazone [Parafon Forte Dsc 500 Mg Tablet] 500 mg PO BID #14 tablet Referrals: OSORIO MICHAEL PA-C [PHYSICIAN ENVIRONMENTAL MONITORING SPECIALIST] - Follow up as needed
[2020-03-05] MEDS ORDERED: HYDROMORPHONE HCL INJ/PF 2 MG/ML AMPULE IM ONE (17:18)
[2020-03-05] MEDS ORDERED: PROMETHAZINE HCL INJ 25 MG/1 ML VIAL IM ONE (17:18)
[2020-03-05] MEDS ORDERED: DIPHENHYDRAMINE HCL 50 MG/ML VIAL IM ONE (17:20)
[2020-03-05] MEDS ORDERED: DEXAMETHASONE SOD PHOS INJ 10 MG/1 ML VIAL IM ONE (17:24)
[2020-03-05 17:50] VITALS: BP 130/81
== END 2020-03-05 17:50 | disposition home or self-care (01) ==
LOC: ER 16:26
DX: G89.29 Other chronic pain (principal); M54.41 Lumbago with sciatica, right side; M54.42 Lumbago with sciatica, left side; J45.909 Unspecified asthma, uncomplicated; Z79.899 Other long term (current) drug therapy; Z79.891 Long term (current) use of opiate analgesic; Z98.890 Other specified postprocedural states; Z88.8 Allergy status to other drugs, medicaments and biological substances; Z88.6 Allergy status to analgesic agent; Z88.1 Allergy status to other antibiotic agents; Z91.040 Latex allergy status; Z88.2 Allergy status to sulfonamides
CPT/HCPCS: 99284; 96372; J1200; J1170; J2550; J1100

== ENCOUNTER 2020-03-23 22:55 | Emergency (ER) | payer MEDICAID ==
--- NOTE | 2020-03-23 23:51 | ER Document Report ---
ED Medical Screen (RME) - General Chief Complaint: Back Pain Stated Complaint: POST SPINE SURGERY COMPLICATION/PASSING OUT Time Seen by Provider: 03/23/20 23:47 Mode of Arrival: Ambulatory Information source: Patient Notes: Patient is a 34-year-old female coming in today with multiple syncopal episodes. She unfortunately has a blood dyscrasia predisposing her to blood clots. She recently had spinal fusion surgery up at [place]. Since being discharged she has had multiple episodes of dizziness and syncope denies chest pain and shortness of breath. 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 Physical exam General: Nontoxic-appearing no acute distress Cardiac regular rate and rhythm Pulmonary clear to auscultation without respiratory distress Musculoskeletal: Midline lumbosacral incision without signs of infection. No subcutaneous crepitus. Neuro no focal deficits I have greeted and performed a rapid initial assessment of this patient. A comprehensive ED assessment and evaluation of the patient, analysis of test results and completion of the medical decision making process will be conducted by additional ED providers. TRAVEL OUTSIDE OF THE [place] IN LAST 30 DAYS: No - Related Data Allergies/Adverse Reactions: tramadol [Tramadol] Allergy (Severe, Verified 02/01/20 16:53) ASTHMA SX,HIVES,VOMITING clindamycin HCl [From Cleocin] Allergy (Verified 02/01/20 16:53) clindamycin palmitate HCl [From Cleocin] Allergy (Verified 02/01/20 16:53) clindamycin phosphate [From Cleocin] Allergy (Verified 02/01/20 16:53) ketorolac tromethamine [From Toradol] Allergy (Verified 02/01/20 16:53) Latex, Natural Rubber Allergy (Verified 02/01/20 16:53) Hives Sulfa (Sulfonamide Antibiotics) Allergy (Verified 02/01/20 16:53) sulfamethoxazole [From Bactrim] Allergy (Verified 02/01/20 16:53) trimethoprim [From Bactrim] Allergy (Verified 02/01/20 16:53) latex [Latex] Adverse Reaction (Verified 02/01/20 16:53) Home Medications: same as 03/05 visit except now on oxycodone and robaxin Past Medical History - Social History Chew tobacco use (# tins/day): No Drug Abuse: None - Past Medical History Cardiac Medical History: Reports: Hx Hypertension - WITH PREG Pulmonary Medical History: Reports: Hx Asthma - NO CURRENT MEDS/LAST EPISODE WAS 03/19 Endocrine Medical History: Reports: Hx Hypothyroidism Renal/ Medical History: Denies: Hx Peritoneal Dialysis GI Medical History: Reports: Hx Gastroesophageal Reflux Disease, Hx Ulcer, Hx Colonoscopy, Hx Endoscopy Musculoskeltal Medical History: Reports Hx Arthritis, Reports Hx Musculoskeletal Deformity - Degenerative disc disease, Reports Hx Musculoskeletal Trauma - Left arm fracture Psychiatric Medical History: Reports: Hx Depression Traumatic Medical History: Reports: Hx Fractures - Left arm Past Surgical History: Reports: Hx Adenoidectomy, Hx Section - x3, Hx Hysterectomy, Hx Myringotomy - Permanent, Hx Nose Surgery - Septoplasty, Hx Oral Surgery - cleft lip and palate, Hx Orthopedic Surgery - left knee, Microdiscectomy, Lumbar laminectomy, DJD, Hx Tonsillectomy, Hx Tubal Ligation. Denies: Hx Mastectomy, Hx Open Heart Surgery - Immunizations Immunizations up to date: Yes Hx Diphtheria, Pertussis, Tetanus Vaccination: Yes - 2009 Physical Exam - Vital signs Vitals: Temp Pulse Resp BP Pulse Ox 98.2 F 86 18 126/81 H 98 03/23/20 23:14 03/23/20 23:14 03/23/20 23:14 03/23/20 23:14 03/23/20 23:14 Course - Vital Signs Vital signs: Temp Pulse Resp BP Pulse Ox 98.2 F 86 18 126/81 H 98 03/23/20 23:14 03/23/20 23:14 03/23/20 23:14 03/23/20 23:14 03/23/20 23:14
[2020-03-23] MEDS ORDERED: NORMAL SALINE 1000 ML 1,000 ML IV ONE (23:56)
[2020-03-24 00:15] LABS: ABSOLUTE EOSINOPHILS # (AUTO) 0.1 10^3/uL (0.0-0.6); ABSOLUTE LYMPHOCYTES (AUTO) 2.7 10^3/uL (0.5-4.7); ABSOLUTE MONOCYTES (AUTO) 0.6 10^3/uL (0.1-1.4); ABSOLUTE NEUT (AUTO) 6.2 10^3/uL (1.7-8.2); BASOPHILS % (AUTO) 0.4 % (0-2); EOSINOPHILS % (AUTO) 1.3 % (0-6); HEMATOCRIT 38.3 % (36.0-47.0); HEMOGLOBIN 13.5 g/dL (12.0-15.5); LYMPHOCYTES % (AUTO) 28.1 % (13-45); MEAN CORPUSCULAR HEMOGLOBIN 31.2 pg (27.0-33.4); MEAN CORPUSCULAR HGB CONC 35.2 g/dL (32.0-36.0); MEAN CORPUSCULAR VOLUME 89 fl (80-97); MONOCYTES % (AUTO) 6.3 % (3-13); PLATELET COUNT 524 10^3/uL (150-450); RED BLOOD COUNT 4.32 10^6/uL (3.72-5.28); SEGMENTED NEUTROPHILS % (AUTO) 63.9 % (42-78); TOTAL CELLS COUNTED % (AUTO) 100 %; WHITE BLOOD COUNT 9.6 10^3/uL (4.0-10.5)
[2020-03-24] MEDS ORDERED: OXYCODONE HCL IR 5 MG TABLET PO ONE (00:22)
[2020-03-24 00:25] LABS: APPEARANCE,URINE SLIGHTLY-CLOUDY; BILIRUBIN,URINE NEGATIVE (NEGATIVE); COLOR,URINE YELLOW; GLUCOSE, URINE NEGATIVE (NEGATIVE); KETONES,URINE 20 mg/dL (NEGATIVE); PROTEIN,URINE 30 mg/dL (NEGATIVE); URINE SPECIFIC GRAVITY 1.024; UROBILINOGEN,URINE NEGATIVE mg/dL (<2.0)
[2020-03-24 00:28] LABS: ALBUMIN 4.8 g/dL (3.5-5.0); ALKALINE PHOSPHATASE 84 U/L (38-126); ANION GAP 12 (5-19); ASPARTATE AMINO TRANSFERASE 26 U/L (14-36); BILIRUBIN,DIRECT 0.1 mg/dL (0.0-0.4); BILIRUBIN,TOTAL 0.6 mg/dL (0.2-1.3); BLOOD UREA NITROGEN 14 mg/dL (7-20); CALCIUM 10.3 mg/dL (8.4-10.2); CARBON DIOXIDE 24 mmol/L (22-30); CHLORIDE 99 mmol/L (98-107); GLUCOSE 92 mg/dL (75-110); POTASSIUM 3.9 mmol/L (3.6-5.0); TOTAL PROTEIN 8.1 g/dL (6.3-8.2)
--- NOTE | 2020-03-24 01:32 | RADIOLOGY REPORT (SQ) ---
EXAM DESCRIPTION: Site: CT HEAD WITHOUT RP: CT HEAD WITHOUT IV CONTRAST CLINICAL HISTORY: 34 years Female; SYNCOPE; TECHNIQUE: Noncontrast CT head. All CT scans at this facility use dose modulation, iterative reconstruction, and/or weight based dosing when appropriate to reduce radiation dose to as low as reasonably achievable. COMPARISON: None. FINDINGS: Brain: Mcgarry matter, white matter, ventricles, and cisterns are within normal limits. No acute hemorrhage or mass effect. Sinuses: Mild mucosal thickening in the left maxillary sinus. Other sinuses are clear. No mastoid effusion. Calvarium: No acute calvarial fractures or focal lesion. IMPRESSION: 1. No acute intracranial findings.
--- NOTE | 2020-03-24 01:36 | RADIOLOGY REPORT (SQ) ---
EXAM DESCRIPTION: CTA CHEST RadLex: CT CHEST ANGIOGRAPHY WITHOUT THEN WITH IV CONTRAST CLINICAL HISTORY: 34 years Female; SYNCOPE; TECHNIQUE: CT angiogram of the chest using intravenous contrast. MIP reconstructions were performed. All CT scans at this facility use dose modulation, iterative reconstruction, and/or weight based dosing when appropriate to reduce radiation dose to as low as reasonably achievable. COMPARISON: None. FINDINGS: Pulmonary arteries: No filling defects in the central pulmonary arteries. Lungs: Lungs are clear. No pneumothorax or pleural effusion. Mediastinum:No mediastinal mass or adenopathy. Mediastinal vascular structures are unremarkable. Bones:No acute bone findings. IMPRESSION: 1. Normal CTA chest
[2020-03-24] MEDS ORDERED: PROMETHAZINE HCL INJ 25 MG/1 ML VIAL IV ONE (02:01)
[2020-03-24] MEDS ORDERED: HYDROMORPHONE HCL INJ/PF 2 MG/ML AMPULE IV ONE (02:01)
--- NOTE | 2020-03-24 02:07 | ER Document Report ---
ED General Pain - General Chief Complaint: Back Pain Stated Complaint: POST SPINE SURGERY COMPLICATION/PASSING OUT Time Seen by Provider: 03/23/20 23:47 Primary Care Provider: OSORIO MICHAEL PA-C [Primary Care Provider] - Follow up as needed Mode of Arrival: Ambulatory Notes: ED Medical Screen ([facility])) - General Chief Complaint: Back Pain Stated Complaint: POST SPINE SURGERY COMPLICATION/PASSING OUT Time Seen by Provider: 03/23/20 23:47 Mode of Arrival: Ambulatory Information source: Patient Notes: Patient is a 34-year-old female coming in today with multiple syncopal episodes. She unfortunately has a blood dyscrasia predisposing her to blood clots. She recently had spinal fusion surgery up at [place]. Since being discharged she has had multiple episodes of dizziness and syncope denies chest pain and shortness of breath. 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 Physical exam General: Nontoxic-appearing no acute distress Cardiac regular rate and rhythm Pulmonary clear to auscultation without respiratory distress Musculoskeletal: Midline lumbosacral incision without signs of infection. No subcutaneous crepitus. Neuro no focal deficits MY NOTES 34-year-old female arrives by POV with chief complaint of diffuse pain especially in her lower back where she has just finished back surgery on the 12th of this month at [facility]. She has had for back surgery this is her fourth. It is midline incision which appears to have no obvious signs of infection at this time. It is in the central part of a butterfly tattoo. I saw this patient around a month or so ago after Liliana TINEO and this patient got into a argument. Patient reports she is not a drug seeker but has to take pain medicine for her chronic pain. She is also upset that [facility] gave her subcutaneous Lovenox which she has been taking daily and she has on her instructions to take 30 mg twice daily for 2 weeks by pill. She is then to begin Eliquis 2.5 twice daily. Her pain at this time is 10 out of 10 and she is quite upset crying wiping away her tears with toilet paper that was applied by the nursing staff. She has contacted nursing staff every 15 minutes requesting something for pain. TRAVEL OUTSIDE OF THE [place] IN LAST 30 DAYS: No - HPI Onset: This afternoon - Related Data Allergies/Adverse Reactions: tramadol [Tramadol] Allergy (Severe, Verified 02/01/20 16:53) ASTHMA SX,HIVES,VOMITING clindamycin HCl [From Cleocin] Allergy (Verified 02/01/20 16:53) clindamycin palmitate HCl [From Cleocin] Allergy (Verified 02/01/20 16:53) clindamycin phosphate [From Cleocin] Allergy (Verified 02/01/20 16:53) ketorolac tromethamine [From Toradol] Allergy (Verified 02/01/20 16:53) Latex, Natural Rubber Allergy (Verified 02/01/20 16:53) Hives Sulfa (Sulfonamide Antibiotics) Allergy (Verified 02/01/20 16:53) sulfamethoxazole [From Bactrim] Allergy (Verified 02/01/20 16:53) trimethoprim [From Bactrim] Allergy (Verified 02/01/20 16:53) latex [Latex] Adverse Reaction (Verified 02/01/20 16:53) Home Medications: same as 03/05 visit except now on oxycodone and robaxin Past Medical History - General Information source: Patient - Social History Smoking Status: Never Smoker Cigarette use (# per day): No Chew tobacco use (# tins/day): No Smoking Education Provided: No Frequency of alcohol use: None Drug Abuse: None Lives with: Family Family History: Reviewed & Not Pertinent, CVA, Malignancy Patient has suicidal ideation: No Patient has homicidal ideation: No - Past Medical History Cardiac Medical History: Reports: Hx Hypertension - WITH PREG Pulmonary Medical History: Reports: Hx Asthma - NO CURRENT MEDS/LAST EPISODE WAS 03/19 Endocrine Medical History: Reports: Hx Hypothyroidism Renal/ Medical History: Denies: Hx Peritoneal Dialysis GI Medical History: Reports: Hx Gastroesophageal Reflux Disease, Hx Ulcer, Hx Colonoscopy, Hx Endoscopy Musculoskeletal Medical History: Reports Hx Arthritis, Reports Hx Musc uloskeletal Deformity - Degenerative disc disease, Reports Hx Musculoskeletal Trauma - Left arm fracture Psychiatric Medical History: Reports: Hx Depression Traumatic Medical History: Reports: Hx Fractures - Left arm Past Surgical History: Reports: Hx Adenoidectomy, Hx Section - x3, Hx Hysterectomy, Hx Myringotomy - Permanent, Hx Nose Surgery - Septoplasty, Hx Oral Surgery - cleft lip and palate, Hx Orthopedic Surgery - left knee, Microdiscectomy, Lumbar laminectomy, DJD, Hx Tonsillectomy, Hx Tubal Ligation. Denies: Hx Mastectomy, Hx Open Heart Surgery - Immunizations Immunizations up to date: Yes Hx Diphtheria, Pertussis, Tetanus Vaccination: Yes - 2009 Review of Systems - Review of Systems Constitutional: No symptoms reported, See HPI, Other - Patient surgery EENT: No symptoms reported Cardiovascular: No symptoms reported Respiratory: No symptoms reported Gastrointestinal: No symptoms reported Genitourinary: No symptoms reported Female Genitourinary: No symptoms reported Musculoskeletal: See HPI, Back pain Skin: See HPI, Other - Surgical wound to low back sutures in place with no obvious signs or symptoms of infection. She does have bruises over her forearms and abdomen where she has been injection herself with Lovenox Hematologic/Lymphatic: No symptoms reported Neurological/Psychological: No symptoms reported Physical Exam - Vital signs Vitals: Temp Pulse Resp BP Pulse Ox 98.2 F 86 18 126/81 H 98 03/23/20 23:14 03/23/20 23:14 03/23/20 23:14 03/23/20 23:14 03/23/20 23:14 Interpretation: Normal - General General appearance: Alert, Anxious, Other - Tearful and upset female - HEENT Head: Normocephalic, Atraumatic Eyes: Normal Pupils: PERRL - Respiratory Respiratory status: No respiratory distress Chest status: Nontender Breath sounds: Normal Chest palpation: Normal - Cardiovascular Rhythm: Regular Heart sounds: Normal auscultation Murmur: No - Abdominal Inspection: Normal Distension: No distension Bowel sounds: Normal Tenderness: Nontender Organomegaly: No organomegaly - Rectal Hemorrhoids: Other - Deferred - Genitourinary Bimanuel exam: Other - Deferred - Back Back: Tender - With tenderness to the LS area with a midline surgical sutured 10 cm length nonerythemic no signs or symptoms of infection. This is midline between a very large butterfly tattoo blue in color. - Extremities General upper extremity: Normal inspection, Nontender, Normal color, Normal ROM, Normal temperature General lower extremity: Normal inspection, Nontender, Normal color, Normal ROM, Normal temperature, Normal weight bearing. No: Malathi's sign - Neurological Neuro grossly intact: Yes Cognition: Normal Orientation: AAOx4 Nathan Coma Scale Eye Opening: Spontaneous [place] Coma Scale Verbal: Oriented Nathan Coma Scale Motor: Obeys Commands [place] Coma Scale Total: 15 Speech: Normal Motor strength normal: LUE, RUE, LLE, RLE Sensory: Normal - Psychological Associated symptoms: Angry, Anxious - Skin Skin Temperature: Warm Skin Moisture: Dry Skin Color: Normal Course - Vital Signs Vital signs: Temp Pulse Resp BP Pulse Ox 98.2 F 86 18 126/81 H 98 03/23/20 23:14 03/23/20 23:14 03/23/20 23:14 03/23/20 23:14 03/23/20 23:14 - Laboratory Result Diagrams: 03/23/20 23:56 03/23/20 23:56 Laboratory results interpreted by me: 03/23/20 03/23/20 03/23/20 23:56 23:56 23:56 Plt Count 524 H Sodium 134.8 L Calcium 10.3 H ALT 36 H Urine Protein 30 H Urine Ketones 20 H Urine Blood SMALL H - Diagnostic Test Radiology reviewed: Reports reviewed Discharge - Discharge Clinical Impression: On bridging treatment with lovenox Back pain Qualifiers: Back pain location: low back pain Chronicity: unspecified Back pain laterality: midline Sciatica presence: without sciatica Qualified Code(s): M54.5 - Low back pain Condition: Stable Disposition: HOME, SELF-CARE Instructions: Low Back Pain ([facility]) Additional Instructions: Follow-up with your surgeon doctors as soon as possible tomorrow. Return to ER as needed take your medicines as directed. Encourage fluids. Your CTA head and your CTA for chest to rule out clots was negative today. Make sure you advise your surgeon doctors about this as well. You may get your medical records if they choose to evaluate them. Avoid bending twisting or lifting. Prescriptions: Enoxaparin Sodium [Lovenox Inj 30 mg/0.3 ml Disp.syrin] 30 mg SUBCUT QA #30 disp.syrin Referrals: OSORIO MICHAEL PA-C [Primary Care Provider] - Follow up as needed
[2020-03-24 02:33] VITALS: BP 125/81
--- NOTE | 2020-03-24 08:33 | EKG REPORT ---
SEVERITY:- NORMAL ECG - SINUS RHYTHM : Confirmed by: Letha Santacruz MD 24-Mar-2020 08:32:28
== END 2020-03-24 02:33 | disposition home or self-care (01) ==
LOC: ER 22:55
DX: M54.5 Low back pain (principal); G89.29 Other chronic pain; R55 Syncope and collapse; R42 Dizziness and giddiness; G62.9 Polyneuropathy, unspecified; J45.909 Unspecified asthma, uncomplicated; Z79.891 Long term (current) use of opiate analgesic; Z79.899 Other long term (current) drug therapy; Z98.890 Other specified postprocedural states; Z79.01 Long term (current) use of anticoagulants; D75.9 Disease of blood and blood-forming organs, unspecified; Z88.6 Allergy status to analgesic agent; Z88.1 Allergy status to other antibiotic agents; Z88.8 Allergy status to other drugs, medicaments and biological substances; Z91.040 Latex allergy status; Z88.2 Allergy status to sulfonamides
CPT/HCPCS: 93005; 99285; 96361; 96374; 96375; 36415; 84703; 85025; 80053; 81001; 84484; 85379; 70450; 71275; 93010; J1170; J2550; J7030; J3490

== ENCOUNTER → 2020-05-20 | Outpatient (CLI) | payer MEDICAID ==
--- NOTE | 2020-05-20 08:58 | WOMENS IMAGING REPORT ---
EXAM DESCRIPTION: U/S ABDOMEN LIMITED IMAGES COMPLETED DATE/TIME: 05/20/2020 8:13 am REASON FOR STUDY: R10.13 R10.13 EPIGASTRIC PAIN COMPARISON: None. TECHNIQUE: Dynamic and static grayscale images acquired of the abdomen and recorded on PACS. Additio nal selected color Doppler and spectral images recorded. LIMITATIONS: None. FINDINGS: PANCREAS: No masses. Visualized pancreatic duct normal caliber. LIVER: No masses. Echotexture normal. LIVER VASCULATURE: Normal directional flow of the main portal vein and hepatic veins. GALLBLADDER: No stones. Normal wall thickness. No pericholecystic fluid. ULTRASOUND-DETECTED ABEL'S SIGN: Negative. INTRAHEPATIC DUCTS AND COMMON DUCT: CBD and intrahepatic ducts normal caliber. No filling defects. INFERIOR VENA CAVA: Normal flow. AORTA: No aneurysm. RIGHT KIDNEY: Normal size. Normal echogenicity. No solid or suspicious masses. No hydronephrosis. No calcifications. PERITONEAL AND RIGHT PLEURAL SPACE: No ascites or effusions. OTHER: No other significant findings. IMPRESSION: NORMAL RIGHT UPPER QUADRANT ULTRASOUND. TECHNICAL DOCUMENTATION: JOB ID: [id number] 2010 [employer]- All Rights Reserved Reading location - IP/workstation name: [email or web address]
== END ==
LOC: WI 07:48
PROVIDERS: ATTEND Internal Medicine Gastroenterology
DX: R10.13 Epigastric pain (principal)
CPT/HCPCS: 76705